=== PATIENT | female | born 1965 | race Caucasian/White ===

== ENCOUNTER 2017-07-22 06:19 | Inpatient (IN) | payer MEDICAID ==
[2017-07-22] VITALS (18 sets, daily range): BP systolic 89–142; BP diastolic 8–85
[~2017-07-22] VITALS: Ht 152.4 cm; Wt 84.6 kg
[~2017-07-22 06:19] MED LIST: BISOPROLOL HCTZ PO; BISOPROLOL/HCTZ1 TA2 PO; CELEBREX 100MG100 MG PO; CITALOPRAM20 MG PO; DARVOCET-N 1001 EACH PO; DICLOFENAC 50MG50 MG PO; DULOXETINE30 M1 PO; FETZIMA80 MG PO; FLEXERIL10 MG PO; IBU-8800 MG PO; IBUPROFEN800 MG PO; LEVOTHYROXIN0.075 M1 PO; LORTAB 5/500 501 TAB PO; LORTAB 500 MG-71 TAB PO; MEDROL 4MG. DOSE4 MG PO; NEURONTIN 300M300 MG PO; OMEPRAZOLE40 MG PO; PEPCID 20MG TAB20 MG PO; PREDNISONE 20MG20 MG PO; PRILOSEC40 MG PO; SYNTHROID0.025 MG PO; VICODIN 5/500 T1 TAB PO; VITAMIN D1000 IU PO; ZANAFLEX4 MG PO; [UNRECOGNIZED DRUG - OTHER] PO
[2017-07-22 07:33] LABS: BUN 26 mg/dL (7-18); GFR (ESTIMATED) 66 ML/MIN (59-)
--- NOTE | 2017-07-22 09:59 | Operative Note ---
Procedure/Operative Record Date of Procedure: 07/22/17 Referring physician: Dr. Mallory Pre-op diagnosis: 1. Pelvic pain. 2. Leiomyomata uteri. Post-op diagnosis: 1. Pelvic pain. 2. Leiomyomata uteri. Procedure performed: Total abdominal hysterectomy, bilateral salpingo-oophorectomy. Surgeon: Paco Haddad Visual Manager(s): RADHA Cruz Anesthesia: Gen., FERNANDO Simons and FERNANDO Armstrong Indications: 1. Pelvic pain. 2. Leiomyomata uteri. Description of procedure: After the patient was prepped and draped in the usual fashion, general anesthesia was administered, albeit with considerable difficulty. A low Pfannenstiel incision was made across the midline, and the fat and fascia were in the usual fashion, bleeders being clamped and coagulated along the way. The peritoneum was entered with a knife, and extended above and below with Metzenbaum scissors. The bowel was packed away, and a self-retaining Laurent retractor with bladder blade was placed. The uterus was of normal size and configuration. Each tube showed evidence of previous ligation. The LEFT ovary was atrophic. The RIGHT ovary was partially atrophic, but also cystic. The round ligament on either side was Jim clamped, cut, and Jim suture with #1 Vicryl. The bladder peritoneum was then sharply and bluntly dissected free. The infundibulopelvic ligaments on either side were Jim clamped, cut, and Jim suture with #1 Vicryl, thus including the adnexa within the uterine specimen. The uterine vessels, the cardinal and uterosacral ligaments were individually, bilaterally, Jim clamped, cut, and Jim suture with #1 Vicryl. The vaginal vault was then crossclamped with 2 Tonya clamps, and the uterine specimen and cervix (including both adnexa and) was excised with Landaverde scissors. The vaginal cuff was closed with a running locked suture of #1 Vicryl. There was no undue bleeding. Gelfoam was placed against the back of the vaginal cuff for further hemostasis. The peritoneum was then grasped with 3 Tonya clamps, and closed with a running semi-locked suture of 0 Vicryl. The muscle was approximated with a running unlocked suture of 0 Vicryl. The fascia was closed with a running locked suture of #1 Vicryl. The subcutaneous fat and Cady's fascia were closed with a running unlocked suture of 2-0 Vicryl. The skin was closed with a subcuticular suture of 3-0 Vicryl, and appropriately dressed. The sponge and needle counts correct. The urine was clear in the Snow catheter. The estimated blood loss was 300 mL. The patient tolerated the procedure well, and was taken to PACU in good condition. Because of her difficult intubation, the decision has been made to observe her in Intensive Care Unit overnight. EBL (ml): 300 Complications: None. Specimens: Uterus and both adnexa. at 0948
--- NOTE | 2017-07-22 10:42 | Anesthesia Record ---
Anesthesia Record Part I Total IV fluids: 1300 EBL (ml): 300 Urine Output: 0 Units of blood given: 0 B/P: 119/77 % SaO2: 97 Pulse: 71 Resps: 10 Temp: 97.7 Patient is: Drowsy, Mask O2, Stable Stable to PACU at: 1020 at 1041
--- NOTE | 2017-07-22 10:44 | Anesthesia Record ---
Anesthesia Record Part II Discharge time: 1050 Destination: ICU PACU nurse assessment review? Yes Patient is: Drowsy, Mask O2, Stable Anesthesia complications? Yes (DIFFICULT INTUBATION) at 1041
--- NOTE | 2017-07-22 12:54 | ACUTE CARE PROGRESS NOTE (QUA) ---
Progress Notes Subjective Date 07/22/17 Time 1200 Note Internal Medicine Consult 52-year-old female with a history of hypertension, hypothyroidism, and GERD was evaluated in the ICU where she was transferred s/p total abdominal hysterectomy with bilateral salpingo-oophorectomy d/t a difficult intubation for airway monitoring and observation. Patient elected for hysterectomy due to fibroids and pelvic pain. Pre-operative labs and CXR were reviewed and unremarkable. It took anesthesia multiple attempts to place endotracheal tube prior to surgery. This is likely related to her body/neck shape and size. She was extubated and sent to ICU for monitoring. Patient awakens easily. She complains of throat pain. She denies any difficulty breathing or swallowing. No shortness of breath, cough or wheezing. Speech is clear. Alert and oriented x3, drowsy awakens easily. Rate and rhythm regular. No LE edema. Pulses 2+. Lung sounds clear and equal throughout. Airway patent with minimal swelling noted around uvula, tongue without edema. Approx 2 cm laceration noted on right side of uvula. Scant old blood noted on teeth, no active bleeding. Patient/family reports: pain (throat) Nursing reports: no complaints Objective Findings Last VS-Temp:97.5 B/P:145/97 Pulse:89 Resp:15 SaO2:95 OXYGEN Last weight lbs:182 oz:0 K.555 Method:Floor Scales Reviewed: medications, vital signs, lab results, radiology report, consult note Assessment/Plan Problem List 1. Difficult intubation Assessment/Plan: Minimal airway swelling noted. Decadron every 8 hours for edema and inflammation. Monitor airway closely and notify Anesthesia PRN. 2. Laceration of oral cavity Assessment/Plan: Magic mouthwash QID. Ancef will cover for infection prophylaxis. 3. History of hysterectomy Assessment/Plan: See operative report. Post operative care per Dr. Haddad. 4. Hypertension Assessment/Plan: Stable, will monitor and restart meds if indicated. 5. Hypothyroidism Assessment/Plan: Stable, last TSH was normal. 6. GERD (gastroesophageal reflux disease) Assessment/Plan: Protonix IV for ulcer prevention. Patient condition Stable Plan: See above This inpt stay is expected to cross 2 MNs from start of care No at [id number]
[2017-07-22 13:29] LABS: URINE BILIRUBIN - DIPSTICK NEGATIVE (NEG); URINE BLOOD NEGATIVE (NEG)
[2017-07-22] MEDS ORDERED: ZYRTEC ALLERGY10 MG PO (14:37)
--- NOTE | 2017-07-22 14:55 | ACUTE CARE PROGRESS NOTE (QUA) ---
Progress Notes Subjective Date 07/22/17 Time 1300 Assessment/Plan Problem List 1. Difficult intubation 2. Laceration of oral cavity 3. History of hysterectomy 4. Hypertension 5. Hypothyroidism 6. GERD (gastroesophageal reflux disease) This inpt stay is expected to cross 2 MNs from start of care Yes (major surgery) Comments: This is day of surgery. The patient has been housed in Intensive Care Unit as an overflow to the stepdown unit because of difficult intubation and concern with regard to laryngeal edema. She was easily extubated in PACU. She is alert and breathing well. Her oxygen saturation is in the high 90s. Surgery is been explained to the patient, along with the difficulties encountered with her intubation. Dr. Mallory has been consulted encased there is need for further medical follow-up. Impression: Stable. at [id number]
[2017-07-22] MEDS ORDERED: LYRICA 100 MG100 MG PO (15:56)
[2017-07-23] VITALS (9 sets, daily range): BP systolic 105–135; BP diastolic 58–78
--- NOTE | 2017-07-23 07:31 | ACUTE CARE PROGRESS NOTE (QUA) ---
Progress Notes Subjective Date 07/23/17 Time 0729 Note This is postop day number 1. The patient is afebrile. Her vital signs are stable. Wound clean. Abdomen soft. Urine output good.She has had no breathing problems since her difficult intubation, and her extubation was uneventful. Her hemoglobin is 13.0 g. Plan is to advance her diet and discontinue her Snow. She will be moved to a regular bed today. Assessment/Plan Problem List 1. Difficult intubation 2. Laceration of oral cavity 3. History of hysterectomy 4. Hypertension 5. Hypothyroidism 6. GERD (gastroesophageal reflux disease) This inpt stay is expected to cross 2 MNs from start of care Yes (major surgery) at 0731
--- NOTE | 2017-07-23 09:07 | ACUTE CARE PROGRESS NOTE (QUA) ---
Progress Notes Subjective Date 07/23/17 Time 0905 Note Internal medicine consult followup note: Patient did well overnight in the step down unit. As tolerated and the buttocks well. Continues to complain of a lot of oral pain, understandably. Laceration on posterior pharynx and tongue is healing. No evidence of drainage. No stridor on inspiration. No wheezing, good air movement. Swallows liquids tenderly but well. Objective Findings Last VS-Temp:98 B/P:125/72 Pulse:69 Resp:12 SaO2:95 OXYGEN Last weight lbs:186 oz:7 K.567 Method:Bed Scales Assessment/Plan Problem List 1. Difficult intubation 2. Laceration of oral cavity 3. History of hysterectomy 4. Hypertension 5. Hypothyroidism 6. GERD (gastroesophageal reflux disease) Patient condition Improving Plan: continue current care, okay to transfer to lower level of care for observation. Continue IV antibiotics for oral laceration This inpt stay is expected to cross 2 MNs from start of care Yes (major surgery) at 0906
[2017-07-23] MEDS ORDERED: GABAPENTIN 600600 MG PO (14:55)
[2017-07-24 03:39] VITALS: BP 148/82
--- NOTE | 2017-07-24 06:15 | ACUTE CARE PROGRESS NOTE (QUA) ---
Progress Notes Subjective Date 07/24/17 Time 0613 Note This is postop day number 2. The patient is afebrile. Her vital signs are stable. Wound is clean. She is ambulating. Her abdomen is distended with a likely postop ileus. Plan is to ambulate and treat with Dulcolax suppository and simethicone. Assessment/Plan Problem List 1. Difficult intubation 2. Laceration of oral cavity 3. History of hysterectomy 4. Hypertension 5. Hypothyroidism 6. GERD (gastroesophageal reflux disease) This inpt stay is expected to cross 2 MNs from start of care Yes (major surgery) at 0614
[2017-07-24 07:40] VITALS: BP 133/76
--- NOTE | 2017-07-24 08:41 | ACUTE CARE PROGRESS NOTE (QUA) ---
Progress Notes Subjective Date 07/24/17 Time 0745 Note Internal Medicine Consult Follow-up Patient has done well overnight. She is ambulating to the bathroom and has showered. She had moderate sized, soft bowel movement this morning. She continues to have significant oral/throat pain. No wheezing or shortness of breath. Able to swallow with some discomfort. Alert and oriented x3. Rate and rhythm regular. No murmur. No edema. Pulses 2+. LS clear and equal. Abdomen soft, and mild tender near incision which is well approximated, dry without drainage or s/s infection. Bowel sounds normoactive. Oral laceration approx 2 cm on right side of uvula with ecchymosis extending 2-3 cm around incision, no drainage or s/s infection. Patient/family reports: feeling worse Nursing reports: no complaints Objective Findings Last VS-Temp:97.9 B/P:133/76 Pulse:79 Resp:18 SaO2:97 ROOM AIR Last weight lbs:186 oz:7 K.567 Method:Bed Scales Reviewed: medications, vital signs, lab results Assessment/Plan Problem List 1. Difficult intubation 2. Laceration of oral cavity 3. History of hysterectomy 4. Hypertension 5. Hypothyroidism 6. GERD (gastroesophageal reflux disease) Patient condition Improving Plan: continue current care This inpt stay is expected to cross 2 MNs from start of care Yes (major surgery) Comments: IV antibiotics were discontinued yesterday. Start Cefdinir 300mg po BID. Patient will need to continue Cefidinir 300 MG PO BID x 7 days after discharge. at 0844
--- NOTE | 2017-07-24 15:14 | ACUTE CARE PROGRESS NOTE (QUA) ---
Progress Notes Subjective Date 07/24/17 Time 1513 Note The patient is afebrile. Vital signs stable. Wound clean. Abdomen soft. She had excellent results from her Dulcolax suppository and I'm going to start her on a soft diet at this time. Assessment/Plan Problem List 1. Difficult intubation 2. Laceration of oral cavity 3. History of hysterectomy 4. Hypertension 5. Hypothyroidism 6. GERD (gastroesophageal reflux disease) This inpt stay is expected to cross 2 MNs from start of care Yes (major surgery) at 1511
[2017-07-24 16:31] VITALS: BP 128/79
[2017-07-24 21:06] VITALS: BP 144/86
[2017-07-24 21:16] VITALS: BP 144/86
[2017-07-25 04:00] VITALS: BP 126/64
--- NOTE | 2017-07-25 06:16 | ACUTE CARE PROGRESS NOTE (QUA) ---
Progress Notes Subjective Date 07/25/17 Time 0614 Note This is postop day number 3. The patient is afebrile. Vital signs stable. Wound clean. Abdomen soft. She is eating and ambulating and has had a bowel movement. She will be discharged today. Assessment/Plan Problem List 1. Difficult intubation 2. Laceration of oral cavity 3. History of hysterectomy 4. Hypertension 5. Hypothyroidism 6. GERD (gastroesophageal reflux disease) This inpt stay is expected to cross 2 MNs from start of care Yes (major surgery) at 0615
--- NOTE | 2017-07-25 06:19 | DISCHARGE SUMMARY STANDARD ---
Discharge Summary Date of admission: 07/22/17 Date of discharge: 07/25/17 Patient condition: Stable Discharge diagnosis (es): 1. Pelvic pain. 2. Leiomyomata uteri. Hospital course: This 52-year-old white female was admitted for definitive treatment of the above diagnoses. On the date of admission, she was taken to the operating room, where she underwent a total abdominal hysterectomy and bilateral salpingo-oophorectomy , without surgical complications. She did, however, experience a difficult intubation (per anesthesia). As a result, she was observed in the Intensive Care Unit for 24 hours postoperatively after extubation, but had no difficulties in that regard. She received Delestrogen 30 mg IM in PACU. Postoperatively, the patient has done well. She is eating and ambulating, and has had a bowel movement. Her wound is clean. Her abdomen is soft. Her hemoglobin on admission was 14.4 g; postoperatively it is 13.0 g. She is not a smoker. She is discharged home on the third postoperative day on Percocet 7.5/325 (number 30), 1 by mouth every 6 hours when necessary pain. She is given appropriate instructions as to diet, exercise, and wound care, and she is to return the office in 2 weeks for follow-up. at 8943
[2017-07-25] MEDS ORDERED: ENDOCET 325 MG-1 TA2 PO (06:22)
[2017-07-25 08:26] VITALS: BP 124/71
[2017-07-25 08:30] VITALS: BP 124/71
[2017-07-25] MEDS ORDERED: CEFDINIR300 M1 PO (08:46)
--- NOTE | 2017-07-25 08:58 | ACUTE CARE PROGRESS NOTE (QUA) ---
Progress Notes Subjective Date 07/25/17 Time 0857 Note Patient doing better, able to swallow soft foods. No vomiting. No significant pain. Oral exam improved. Agree with discharge on antibiotics. Objective Findings Last VS-Temp:97.6 B/P:124/71 Pulse:62 Resp:18 SaO2:97 ROOM AIR Last weight lbs:186 oz:7 K.567 Method:Bed Scales Assessment/Plan Problem List 1. Difficult intubation 2. Laceration of oral cavity 3. History of hysterectomy 4. Hypertension 5. Hypothyroidism 6. GERD (gastroesophageal reflux disease) This inpt stay is expected to cross 2 MNs from start of care Yes (major surgery) at 0858
== END 2017-07-25 10:30 | disposition home or self-care (01) | DRG 743 ==
LOC: 2ND 06:19 → EDSTATUS 07:30 → SDC 07:30 → 2ND 07:30 → ICU 08:38 → OB 08:38 → ICU 10:34 → OB 07-23 09:27
PROVIDERS: Obstetrics & Gynecology
PROC: 0UT70ZZ Resection of Bilateral Fallopian Tubes, Open Approach (ICD-10-PCS; principal; 2017-07-22 07:30)
PROC: 0UT20ZZ Resection of Bilateral Ovaries, Open Approach (ICD-10-PCS; principal; 2017-07-22 07:30)
PROC: 0UT90ZZ Resection of Uterus, Open Approach (ICD-10-PCS; principal; 2017-07-22 07:30)
PROC: 0UTC0ZZ Resection of Cervix, Open Approach (ICD-10-PCS; principal; 2017-07-22 07:30)
DX: D25.9 Leiomyoma of uterus, unspecified (principal); I10 Essential (primary) hypertension; T88.4XXA Failed or difficult intubation, initial encounter; Y65.8 Other specified misadventures during surgical and medical care
CPT/HCPCS: J0131; J0330; J2405

== ENCOUNTER 2017-10-18 21:06 | Emergency (ER) | payer MEDICAID ==
[~2017-10-18] VITALS: Ht 152.4 cm; Wt 81.6 kg
[~2017-10-18 21:06] MED LIST changes: +CEFDINIR300 M1 PO; +ENDOCET 325 MG-1 TA2 PO; +GABAPENTIN 600600 MG PO; +LYRICA 100 MG100 MG PO; +ZYRTEC ALLERGY10 MG PO
[2017-10-18] MEDS ORDERED: METHOCARBAMOL500 M1 PO (21:18)
[2017-10-18] MEDS ORDERED: PENICILLIN VK250 MG PO (21:19)
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
--- OUTSIDE RECORDS SUMMARY | 2017-10-18 21:26 | External Medical Summary Rpt | CCD ---
Author Author , [facility] Organization [facility] Address Unknown Phone [email or web address] Care Team Providers Care Supervisor Engine Repair Name Role Phone KRYSTINA JUSTICE MD, PSC, Unavailable Unavailable KRYSTINA JUSTICE MD, PSC [facility] Unavailable Unavailable PRACTICE L, [facility] Unavailable SERV[facility], [facility] & Unavailable Unavailable D[facility]ILIER, [facility] Unavailable Unavailable [facility], [facility] NATALIYA SEKOU, NATALIYA SEKOU Unavailable Unavailable NÚÑEZ, NÚÑEZ Unavailable Unavailable [facility] Unavailable Unavailable INC, [facility], [facility] Unavailable Unavailable [facility]PITAL P, [facility], Unavailable Unavailable [facility] Un[facility], [facility] [place] Unavailable Unavailable [facility] MED, [facility] Un[facility], Unavailable Unavailable PLL, [facility], [facility] Purpose Continuity of Care Document - 06-23-2014 through 2016 Problems Code Diagnosis DOS Provider Status J0100 ACUTE 08-15-2017 [facility] [place] SINUSITIS INTERNAL UNSPECIFIED MED M797 FIBROMYALGI 08-01-2017 [facility] INTERNAL MED Z23 ENCOUNTER 08-01-2017 [facility] FOR [facility] IMMUNIZATIO INTERNAL N MED D259 LEIOMYOMA 07-22-2017 [facility] UTERUS PHYSICIANS UNSPECIFIED GROUP N8301 FOLLICULAR 07-22-2017 [facility] YANG & RIGHT OVARY DUBILIER N8302 FOLLICULAR 07-22-2017 [facility] CYST OF YANG & LEFT OVARY DUBILIER N8311 CORPUS 07-22-2017 [facility] LUTEUM CYST YANG & OF RIGHT DUBILIER OVARY N838 OTH 07-22-2017 [facility] NONINFLAMM YANG & D/O OVARY DUBILIER FALLOP TUBE & BROAD LIG R102 PELVIC AND 07-22-2017 [facility] PERINEAL PHYSICIANS PAIN GROUP I10 ESSENTIAL 07-17-2017 [facility]YPERTENSIO [facility] ASS N C15675 ENCOUNTER 07-17-2017 [facility] P AL CARIOVASCUL AR EXAM C57607 ENCOUNTER 07-17-2017 [facility] P AL RESPIRATORY EXAM E30847 ENCOUNTER 07-17-2017 [facility] FOR OTHER MEDICAL PREPROCEDUR IMAGING ASS AL EXAMINATION M461 SACROILIITI 05-20-2017 Alin KNOTT MD, PSC ELSEWHERE CLASSIFIED M7062 TROCHANTERI 05-20-2017 Jodie KNOTT BURSITIS , PSC LEFT HIP N939 ABNORMAL 03-18-2017 [facility] VAGINAL [facility] BLEEDING UNSPECIFIED N950 POSTMENOPAU 03-18-2017 [facility] DONELL PHYSICIANS BLEEDING GROUP B38557 ENCOUNTER 03-14-2017 [facility] P AL LABORATORY EXAM J302 OTHER 02-18-2017 [facility] ALLERGIC INTERNAL RHINITIS MED P68444 UNSPECIFIED 02-18-2017 [facility] OVARIAN PHYSICIANS CYST RIGHT GROUP SIDE N938 OTHER SPEC 02-13-2017 [facility] ABNORMAL [facility]ICAL UTERINE & IMAGING ASS VAGINAL BLEEDING Z1231 ENCOUNTER 02-13-2017 [facility] SCREENING [facility] MAMMO MALIG IMAGING ASS NEOPLASM BREAST N951 MENOPAUSAL 02-04-2017 [facility] AND FEMALE PHYSICIANS CLIMACTERIC GROUP STATES A10503 ATYP SQ 02-04-2017 [facility] CELLS UNDET PHYSICIANS GROUP SIGNIFICANC E CYTOL SMER CERV H67815 ENCOUNTER 02-04-2017 [facility] REGISTERED DIETETIC TECHNICIAN EXAM PHYSICIANS GENERAL RTN GROUP W/ABNORMAL FIND Z1212 ENCOUNTER 02-04-2017 [facility] SCREENING PHYSICIANS MALIGNANT GROUP NEOPLASM RECTUM E039 HYPOTHYROID 12-16-2016 [facility]M [facility] UNSPECIFIED INTERNAL MED R002 PALPITATION 12-16-2016 [facility] S [facility] INTERNAL MED 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 R198 OTH SPEC SX 12-03-2016 [facility] & SIGNS PHYSICIANS INVLV THE GROUP DIGESTV SYS & ABD Z1211 ENCOUNTER 12-03-2016 [facility] SCREENING PHYSICIANS MALIGNANT GROUP NEOPLASM OF COLON H6692 OTITIS 11-09-2016 [facility] MEDIA PHYSICIANS UNSPECIFIED GROUP LEFT EAR J029 ACUTE 11-09-2016 [facility] PHARYNGITIS PHYSICIANS GROUP UNSPECIFIED J320 CHRONIC 11-09-2016 [facility] MAXILLARY PHYSICIANS SINUSITIS GROUP D126 BENIGN 10-31-2016 [facility] NE[facility] OF [facility] COLON UNSPECIFIED K635 POLYP OF 10-31-2016 [facility] COLON PHYSICIANS GROUP K644 RESIDUAL 10-31-2016 [facility] HEMORRHOIDA PHYSICIANS L SKIN TAGS GROUP K5900 CONSTIPATIO 08-27-2016 [facility] N PHYSICIANS UNSPECIFIED GROUP R1032 LEFT LOWER 08-27-2016 [facility] QUADRANT PHYSICIANS PAIN GROUP R109 UNSPECIFIED 08-24-2016 [facility]OMINAL [facility] PAIN INTERNAL MED R739 HYPERGLYCEM 08-24-2016 [facility] [place] [facility] UNSPECIFIED INTERNAL MED I00566 PRIMARY 08-23-2016 [facility] OSTEOARTHRI [facility]ICAL TIS RIGHT IMAGING ASS SHOULDER F44700 PAIN IN 08-23-2016 [facility] RIGHT MEDICAL SHOULDER IMAGING ASS Q54427 PAIN IN 08-23-2016 [facility] LEFT MEDICAL SHOULDER IMAGING ASS E669 OBESITY 08-09-2016 [facility]NSPECIFIED [facility] INC E785 HYPERLIPIDE 08-09-2016 [facility] UNSPECIFIED INC Z0000 ENCOUNTER 08-09-2016 [facility] GEN ADULT [facility] MED EXAM INC W/O ABNORMAL FIND K219 GASTRO-ESOP 07-24-2016 [facility] H REFLUX [facility] DISEASE INTERNAL WITHOUT MED ESOPHAGITIS 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 WITHOUT MED DIARRHEA M129 ARTHROPATHY 07-24-2016 [facility] UNSPECIFIED INTERNAL MED I55315 DISEASES 07-24-2016 [facility] DIGESTIVE [facility] SYSTEM COMP INTERNAL MED 2ND TRI 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 [facility] D/O INC W/RADICULOP ATHY LUMB RGN M5126 OTH 06-24-2016 JOSE KNOTT MD, PSC RAL DISC DISPLACEMEN T LUMBAR RGN G8929 OTHER 06-05-2016 [facility] CHRONIC [facility] PAIN INTERNAL MED K529 NONINFECTIV 06-05-2016 [facility] GASTROENTER INTERNAL ITIS & MED COLITIS UNS X48047 SPONDYLOSIS 05-21-2016 [facility] W/O MEDICAL MYELOPATH/R IMAGING ASS ADICULOPATH Y LUMB RGN M4806 SPINAL 05-21-2016 [facility] STENOSIS MEDICAL LUMBAR IMAGING ASS REGION M545 LOW BACK 05-21-2016 [place] [facility] M549 DORSALGIA 05-17-2016 [facility] UNSPECIFIED [facility]ANCE SERVICE I33843 MUSCLE 05-17-2016 [facility] SP[facility] OF [facility]OS[facility] BACK INC U52925 OTHER 05-17-2016 [facility] MUSCLE [facility]ANS, [facility] PLL[facility] B9689 OT SPEC 05-02-2016 [facility]ACTERIAL [place] AGNT CAUSE INTERNAL DZ MED CLASSIFIED ELSW N760 ACUTE 05-02-2016 [facility] VAG[facility] N898 OTHER 05-02-2016 [facility] SPECIFIED [facility] NONINFLAMMA TORY DISORDERS VAGINA N921 EXCESS & 05-02-2016 [facility] [place]REQUENT [place] MENSTRUATIO INTERNAL N MED W/IRREGULAR CYCLE N941 DYSPAREUNIA 05-02-2016 [facility] [place] INTERNAL MED A44020 ENCOUNTER 05-02-2016 [facility] REGISTERED DIETETIC TECHNICIAN EXAM [place] GENERAL RTN INTERNAL W/O MED ABNORMAL FIND J020 STREPTOCOCC 03-31-2016 [facility] AL PHYSICIANS PHARYNGITIS GROUP M7061 TROCHANTERI 03-15-2016 Jodie KNOTT BURSITIS , PSC RIGHT HIP M791 MYALGIA 02-26-2016 KRYSTINA JUSTICE MD, PSC M4724 OT 02-17-2016 NÚÑE[facility] SPONDYLOSIS W/RADICULOP ATHY THORACIC REGION D19517 SPONDYLOSIS 02-17-2016 NÚÑEZ W/O MYELOPATH/R ADICULOPATH SAC & SC M9901 SEGMENTAL & 02-17-2016 NÚÑ[facility] SOMATIC DYSFUNCTION CERVICAL REGION M9902 SEGMENTAL & 02-17-2016 NÚ[facility] SOMATIC DYSFUNCTION THORACIC REGION M9903 SEGMENTAL & 02-17-2016 NÚ[facility] SOMATIC DYSFUNCTION OF LUMBAR REGION M9904 SEGMENTAL & 02-17-2016 NÚ[facility] SOMATIC DYSFUNCTION OF SACRAL REGION G4730 SLEEP APNEA 02-07-2016 [facility] UNSPECIFIED PRACTICE L H903 SENSORINEUR 02-07-2016 [facility] AL HEARING PHYSICIAN LOSS PRACTICE L BILATERAL H9313 TINNITUS 02-07-2016 [facility] BILATERAL PHYSICIAN PRACTICE L J069 ACUTE UPPER 02-07-2016 [facility] [place] RESPIRATORY INTERNAL INFECTION MED UNSPECIFIED M2662 ARTHRALGIA 02-07-2016 [facility] OF PHYSICIAN TEMPOROMAND PRACTICE L IBULAR JOINT R0683 SNORING 02-07-2016 [facility] PH[facility]ICIAN PRACTICE L A79520 PAIN IN 01-19-2016 [facility] RIGHT HIP MEDICAL IMAGING ASS X95628 PAIN IN 01-19-2016 [place] LEFT HIP MEDICAL IMAGING ASS 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 01-19-2016 [facility] VERTEBRAE [facility]ICAL IMAGING ASS M5135 OTH 01-19-2016 [place] 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 J0190 ACUTE 12-30-2015 [facility] SINUSITIS PHYSICIANS UNSPECIFIED GROUP R05 COUGH 12-30-2015 [facility] PHYSICIANS GROUP I44768 OTHER 10-24-2015 [facility] INFECTIVE [facility] OTITIS [facility] UNSPECIFIED EAR Z5329 PROC & [place] 10-24-2015 [facility] NOT CARRIED [facility] OUT INC PATIENTS OT REASON H26389 ACUTE & 10-09-2015 [place] SUBACUTE [facility] ALLERGIC [facility] OTITS MEDIA RIGHT EAR 7265 ENTHESOPATH 08-16-2015 [facility] Y OF HIP PHYSICIANS REGION GROUP 41174 NAUSEA 06-29-2015 [facility] ALONE PHYSICIANS GROUP 7873 FLATULENCE 06-29-2015 [facility] ERUCTATION PHYSICIANS AND GAS GROUP PAIN 36000 ABDOMINAL 06-29-2015 [facility] PAIN, PHYSICIANS EPIGASTRIC GROUP 7871 HEARTBURN 06-13-2015 [facility] PHYSICIANS GROUP 2449 UNSPECIFIED 06-12-2015 [facility] HYPOTHYROID INTERNAL ISM MED 4019 UNSPECIFIED 06-12-2015 [facility] ESSENTIAL [facility] HYPERTENSIO INTERNAL N MED 13024 ESOPHAGEAL 06-12-2015 [facility] REFLUX [facility] INTERNAL MED 7248 OTHER 06-12-2015 [facility] SYMPTOMS [facility] REFERABLE INTERNAL TO BACK MED 7336 TIETZES 05-25-2015 [facility] DISEASE PHYSICIANS, [facility] 26474 CHEST PAIN 05-25-2015 [facility] UNSPECIFIED MEDICAL IMAGING ASS 490 BRONCHITIS 05-08-2015 [facility] NOT [facility] SPECIFIED INTERNAL ACUTE OR MED CHRONIC 7862 COUGH 05-08-2015 [facility] INTERNAL MED 46831 SPASM OF 03-16-2015 [facility] MUSCLE AMBULANCE SERVICE 7804 DIZZINESS 03-16-2015 [place] [facility] Privatext [facility] 18509 SHORTNESS 03-16-2015 [facility] OF BREATH AMBULANCE SERVICE 98771 OTHER CHEST 03-16-2015 [facility] PAIN [place] INTERNAL MED 4139 OTHER AND 01-30-2015 [place] UNSPECIFIED [facility] [place] 03709 PAIN IN 01-30-2015 [place] JOINT, MEDICAL SHOULDER IMAGING ASS REGION 76469 PAIN IN 01-30-2015 [place] JOINT MEDICAL PELVIC IMAGING ASS REGION AND THIGH 7231 CERVICALGIA 01-30-2015 [facility] 31251 CONTUSION 01-30-2015 [facility] OF SHOULDER [facility] P 51773 CONTUSION 01-30-2015 [facility] OF HIP [facility] P 9592 INJURY 01-30-2015 [facility] OTHER&UNSPE MEDICAL CIFIED IMAGING ASS SHOULDER&UP PER ARM 3899 UNSPECIFIED 01-04-2015 [place] HEARING PHYSICIAN LOSS PRACTICE L 85875 UNSPECIFIED 12-13-2014 [place] TINNITUS PHYSICIAN PRACTICE L 4739 UNSPECIFIED 12-13-2014 [place] SINUSITIS PHYSICIAN PRACTICE L 84131 UNSPECIFIED 12-13-2014 [place] SLEEP PHYSICIAN APNEA PRACTICE L 89013 OTHER 12-13-2014 [place] DYSPNEA AND PHYSICIAN PRACTICE L RESPIRATORY ABNORMALITI ES V7612 OTHER 12-06-2014 [place] SCREENING MEDICAL MAMMOGRAM IMAGING ASS 3814 NONSUPPRATV 11-28-2014 [facility] OTITIS [facility] MEDIA NOT INTERNAL SPEC MED ACUT/CHRON 02065 ACUTE 11-07-2014 [facility] SEROUS [facility] OTITIS INTERNAL MEDIA MED 12513 UNSPECIFIED 08-30-2014 [facility] VIRAL [facility] INFECTION INTERNAL IN CCE & MED UNS SITE 01214 UNSPECIFIED 08-12-2014 [facility] ARTHROPATHY INTERNAL MULTIPLE MED SITES 7291 UNSPECIFIED 08-12-2014 [facility] MYALGIA [facility] AND INTERNAL MYOSITIS MED 89927 OTHER 08-12-2014 [facility] MALAISE AND [facility] FATIGUE INTERNAL MED 93722 MEMORY LOSS 08-12-2014 [facility] INTERNAL MED 460 ACUTE 08-01-2014 [facility] NASOPHARYNG [facility] ITIS INTERNAL MED 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-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 4720 CHRONIC 07-02-2014 [facility] RHINITIS [facility] INTERNAL MED 2392 NEOPLASMS 06-23-2014 NATALIYA SEKOU UNSPEC NATURE BONE SOFT TISSUE&SKIN M62.830 MUSCLE [facility] OF BACK 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 25 #3 93 MG 8 TA B LY 00 10 11 60 30 00 RI Ac RI 07 -0 -0 .0 00 TE ti CA 11 8- 3- 00 01 ve 01 20 20 20 AI 10 56 17 17 30 D 0 8 59 PH MG AR MA CA CY PS UL #3 E 93 8 OM 00 10 11 30 30 00 RI Ac EP 78 -0 -0 .0 00 TE ti RA 12 8- 3- 00 01 ve ZO 23 20 20 20 AI LE 40 17 17 30 D [address] AR MA 40 CY MG #3 93 CA 8 PS UL E CE 16 10 11 30 30 00 RI Ac TI 71 -0 -0 .0 00 TE ti RI 40 8- 3- 00 01 ve ZI 27 20 20 20 AI NE 10 17 17 30 D 2 61 PH HC AR L MA 10 CY MG #3 93 TA 8 BL ET CE 00 10 11 30 30 00 RI Ac LE 37 -0 -0 .0 00 TE ti CO 87 8- 3- 00 01 ve XI 15 20 20 20 AI B 00 17 17 30 D 20 1 62 PH 0 AR MG MA CY CA PS #3 UL 93 E 8 ES 00 09 10 30 30 00 RI Ac TR 55 -2 -2 .0 00 TE ti AD 50 2- 0- 00 01 ve IO 88 20 20 20 AI L 60 17 17 08 D 1 2 58 PH MG AR MA TA CY BL ET #3 93 8 AM 00 09 10 20 10 00 WA Ac OX 78 -2 -2 .0 00 L- ti -C 11 2- 0- 00 07 MA ve LA 85 20 20 51 RT V 22 17 17 14 87 0 16 PH 5- AR 12 MA 5 CY MG #5 TA 91 BL ET DU 57 09 10 30 30 00 WA Ac LO 23 -1 -1 .0 00 L- ti XE 70 7- 3- 00 07 MA ve TI 01 20 20 50 RT NE 93 17 17 60 0 38 PH HC AR L MA DR CY 60 #5 91 MG CA P CE 00 09 10 30 30 00 WA Ac LE 59 -1 -1 .0 00 L- ti CO 13 5- 3- 00 07 MA ve XI 98 20 20 50 RT B 40 17 17 99 20 1 12 PH 0 AR MG MA CY CA PS #5 UL 91 E LE 00 09 10 30 30 00 WA Ac VO 78 -1 -1 .0 00 L- ti TH 15 5- 3- 00 07 MA ve YR 18 20 20 50 RT OX 49 17 17 98 IN 2 90 PH E AR 10 MA 0 CY MC G #5 TA 91 BL ET CE 16 09 10 30 30 00 MN Ac TI 57 -1 -1 .0 00 L- ti RI 10 5- 3- 00 08 MA ve ZI 40 20 20 84 RT NE 25 17 17 05 0 02 PH HC AR L MA 10 CY MG #5 91 TA BL ET OM 60 09 10 30 30 00 MN Ac EP 50 -1 -1 .0 00 L- ti RA 50 5- 3- 00 07 MA ve ZO 14 20 20 50 RT LE 60 17 [address] AR MA 40 CY MG #5 91 CA PS UL E AC 00 09 10 28 7 00 MN Ac YC 09 -1 -1 .0 00 L- ti LO 38 9- 3- 00 07 MA ve 94 20 20 51 RT R 70 17 17 05 80 1 64 PH 0 AR MG MA CY TA BL #5 ET 91 HY 00 09 10 [address] 40 -1 -1 .0 00 L- ti OC 60 4- 3- 00 02 MA ve OD 12 20 20 24 RT ON 30 17 17 19 -A 1 04 PH CE AR TA MA IL CY NO PH #5 EN 91 5- 32 5 AL 00 09 10 1. 1 00 MN Ac IN 22 -1 -0 00 00 L- ti AZ 82 3- 6- 0 04 MA ve OL 03 20 20 53 RT AM 15 17 17 21 1 0 00 PH AR MG MA CY TA BL #5 ET 91 BI 29 09 10 30 30 00 RI Ac SO 30 -0 -0 .0 00 TE ti IN 00 9- 6- 00 01 ve OL 18 20 20 19 AI OL 80 17 17 89 D -H [address] AR Z MA 5- CY 6. 25 #3 93 MG 8 TA B CE 68 09 09 14 7 00 MN Ac FD 18 -0 -2 .0 00 L- ti IN 00 1- 9- 00 07 MA ve IR 71 20 20 50 RT 16 17 17 71 30 0 85 PH 0 AR MG MA CY CA PS #5 UL 91 E OX 00 09 09 30 8 00 [facility] YC 40 -0 -2 .0 00 L- ti OD 60 1- 9- 00 02 MA ve ON 52 20 20 24 RT -A 20 17 17 17 CE 1 49 PH TA AR IL MA NO CY PH EN #5 91 7. 5- 32 5 LY 00 08 09 60 30 00 [facility] RI 07 -2 -2 .0 00 L- ti CA 11 8- 2- 00 04 MA ve 01 20 20 53 RT 10 56 17 17 18 0 8 23 PH MG AR MA CA CY PS UL #5 E 91 DU 57 08 30 30 00 MN Ac LO 23 -2 -2 .0 00 L- ti XE 70 5- 2- 00 07 MA ve TI 01 20 20 50 RT NE 93 17 17 60 0 38 PH HC AR L MA DR CY 60 #5 91 MG CA P LE 00 08 30 30 [facility] VO 78 -2 -1 .0 00 L- ti TH 15 2- 5- 00 07 MA ve YR 18 20 20 50 RT OX 49 17 17 53 IN 2 27 PH E AR 10 MA 0 CY MC G #5 TA 91 BL ET DU 57 08 30 30 [facility] LO 23 -0 -0 .0 00 L- ti XE 70 7- 1- 00 07 MA ve TI 01 20 20 50 RT NE 83 17 17 25 0 64 PH HC AR L MA DR CY 30 #5 91 MG CA P OM 60 07 30 30 00 [facility] EP 50 -3 -2 .0 00 L- ti RA 50 1- 5- 00 07 MA ve ZO 14 20 20 50 RT LE 60 17 17 [address] AR MA 40 CY MG #5 91 CA PS UL E 64 07 08 8. 28 00 MN Ac T 38 -3 -2 00 00 L- ti D2 00 1- 5- 0 07 MA ve 73 20 20 43 RT 1. 70 17 17 94 25 6 37 PH AR MG MA CY (5 0, #5 00 91 0 UN IT ) CE 00 07 08 30 30 00 MN Ac LE 59 -3 -2 .0 00 L- ti CO 13 1- 5- 00 07 MA ve XI 98 20 20 48 RT B 40 17 17 13 20 1 41 PH 0 AR MG MA CY CA PS #5 UL 91 E GA 00 08 08 90 30 00 MN Ac BA 22 -0 -2 .0 00 L- ti PE 82 2- 5- 00 04 MA ve NT 63 20 20 53 RT IN 65 17 17 08 0 91 PH 60 AR 0 MA MG CY TA #5 BL 91 ET CE 16 07 08 30 30 00 WA Ac TI 57 -3 -2 .0 00 L- ti RI 10 1- 5- 00 08 MA ve ZI 40 20 20 84 RT NE 25 17 17 05 0 02 PH HC AR L MA 10 CY MG #5 91 TA BL ET BI 29 08 08 30 30 00 WA Ac SO 30 -0 -2 .0 00 L- ti IN 00 2- 5- 00 07 MA ve OL 18 20 20 50 RT OL 81 17 17 13 -H [address] AR Z MA 5- CY 6. 25 #5 91 MG TA B GA 00 07 07 90 30 00 WA Ac BA 22 -0 -2 .0 00 L- ti PE 82 5- 8- 00 04 MA ve NT 63 20 20 53 RT IN 65 17 17 08 0 91 PH 60 AR 0 MA MG CY TA #5 BL 91 ET LE 00 06 07 30 30 00 WA Ac VO 78 -2 -2 .0 00 L- ti TH 15 8- 1- 00 07 MA ve YR 18 20 20 49 RT OX 49 17 17 16 IN 2 21 PH E AR 10 MA 0 CY MC G #5 TA 91 BL ET BI 00 06 07 30 30 00 WA Ac SO 37 -2 -2 .0 00 L- ti IN 80 8- 1- 00 07 MA ve OL 50 20 20 48 RT OL 30 17 17 30 -H [address] AR Z MA 5- CY 6. 25 #5 91 MG TA B CE 00 06 07 30 30 00 WA Ac LE 59 -2 -2 .0 00 L- ti CO 13 8- 1- 00 07 MA ve XI 98 20 20 48 RT B 40 17 17 13 20 1 41 PH 0 AR MG MA CY CA PS #5 UL 91 E DU 57 06 07 30 30 00 WA Ac LO 23 -2 -2 .0 00 L- ti XE 70 8- 1- 00 07 MA ve TI 01 20 20 48 RT NE 83 17 17 51 0 44 PH HC AR L MA DR CY 30 #5 91 MG CA P IB 68 06 07 90 30 00 WA Ac UP 64 -2 -2 .0 00 L- ti RO 50 8- 1- 00 07 MA ve FE 53 20 20 49 RT N 15 17 17 60 80 4 61 PH 0 AR MG MA CY TA BL #5 ET 91 CE 16 06 07 30 30 00 MN Ac TI 57 -2 -2 .0 00 L- ti RI 10 8- 1- 00 08 MA ve ZI 40 20 20 83 RT NE 25 17 17 90 0 85 PH HC AR L MA 10 CY MG #5 91 TA BL ET 64 06 07 8. 28 00 MN Ac T 38 -2 -2 00 00 L- ti D2 00 8- 1- 0 07 MA ve 73 20 20 43 RT 1. 70 17 17 94 25 6 37 PH AR MG MA CY (5 0, #5 00 91 0 UN IT ) OM 60 06 07 30 30 00 MN Ac EP 50 -2 -2 .0 00 L- ti RA 50 8- 1- 00 07 MA ve ZO 14 20 20 49 RT LE 60 17 [address] AR MA 40 CY MG #5 91 CA PS UL E GA 00 06 07 30 00 MN Ac BA 22 -0 -0 .0 00 L- ti PE 82 8- 7- 00 07 MA ve NT 63 20 20 48 RT IN 65 17 17 51 0 43 PH 60 AR 0 MA MG CY TA #5 BL 91 ET DU 57 06 05 23 30 00 MN Ac LO 23 -0 -3 .0 00 L- ti XE 70 4- 0- 00 07 MA ve TI 01 20 20 48 RT NE 83 17 17 51 0 44 PH HC AR L MA DR CY 30 #5 91 MG CA P LE 00 04 29 30 30 00 MN Ac VO 78 -0 -3 .0 00 L- ti TH 15 5- 0- 00 07 MA ve YR 18 20 20 49 RT OX 49 17 17 16 IN 2 21 PH E AR 10 MA 0 CY MC G #5 TA 91 BL ET CE 00 04 29 30 30 00 MN Ac LE 59 -0 -3 .0 00 L- ti CO 13 4- 0- 00 07 MA ve XI 98 20 20 48 RT B 40 17 17 13 20 1 41 PH 0 AR MG MA CY CA PS #5 UL 91 E BI 00 03 29 30 30 00 MN Ac SO 37 -2 -2 .0 00 L- ti IN 80 9- 3- 00 07 MA ve OL 50 20 20 48 RT OL 30 17 17 30 -H [address] AR Z MA 5- CY 6. 25 #5 91 MG TA B CE 16 05 05 23 30 00 MN Ac TI 57 -2 -2 .0 00 L- ti RI 10 9- 3- 00 08 MA ve ZI 40 20 20 83 RT NE 25 17 17 90 0 85 PH HC AR L MA 10 CY MG #5 91 TA BL ET 64 05 06 8. 28 00 MN Ac T 38 -2 -2 00 00 L- ti D2 00 9- 3- 0 07 MA ve 73 20 20 43 RT 1. 70 17 17 94 25 6 37 PH AR MG MA CY (5 0, #5 00 91 0 UN IT ) CY 68 05 06 12 4 00 MN Ac CL 64 -3 -2 .0 00 L- ti OB 50 1- 3- 00 07 MA ve EN 51 20 20 49 RT ZA 89 17 17 07 IN 0 50 PH IN AR E MA 10 CY MG #5 91 TA BL ET IB 68 05 06 21 6 00 MN Ac UP 64 -3 -2 .0 00 L- ti RO 50 1- 3- 00 07 MA ve FE 53 20 20 49 RT N 15 17 17 07 80 4 51 PH 0 AR MG MA CY TA BL #5 ET 91 OM 60 05 06 30 30 00 MN Ac EP 50 -1 -1 .0 00 L- ti RA 50 8- 6- 00 07 MA ve ZO 14 20 20 48 RT LE 60 17 [address] AR MA 40 CY MG #5 91 CA PS UL E LE 00 04 05 30 30 00 MN Ac VO 78 -2 -2 .0 00 L- ti TH 15 9- 6- 00 07 MA ve YR 18 20 20 47 RT OX 49 17 17 25 IN 2 39 PH E AR 10 MA 0 CY MC G #5 TA 91 BL ET DU 57 04 05 30 30 00 MN Ac LO 23 -2 -2 .0 00 L- ti XE 70 9- 6- 00 07 MA ve TI 01 20 20 48 RT NE 83 17 17 51 0 44 PH HC AR L MA DR CY 30 #5 91 MG CA P 64 04 05 8. 28 00 MN Ac T 38 -2 -1 00 00 L- ti D2 00 2- 9- 0 07 MA ve 73 20 20 43 RT 1. 70 17 17 94 25 6 37 PH AR MG MA CY (5 0, #5 00 91 0 UN IT ) GA 00 04 05 90 30 00 MN Ac BA 22 -2 -1 .0 00 L- ti PE 82 2- 9- 00 07 MA ve NT 63 20 20 47 RT IN 65 17 17 25 0 38 PH 60 AR 0 MA MG CY TA #5 BL 91 ET AC 00 04 05 30 3 00 CL Ac ET 09 -2 -1 .0 00 IN ti AM 30 5- 9- 00 00 IC ve IN 15 20 20 42 OP 01 17 17 91 PH HE 0 71 AR N- MA CO CY D #3 TA BL ET BI 00 04 05 30 30 00 MN Ac SO 37 -1 -1 .0 00 L- ti IN 80 8- 2- 00 07 MA ve OL 50 20 20 48 RT OL 30 17 17 30 -H [address] AR Z MA 5- CY 6. 25 #5 91 MG TA B CE 16 04 30 30 00 MN Ac TI 57 -1 -1 .0 00 L- ti RI 10 8- 2- 00 08 MA ve ZI 40 20 20 83 RT NE 25 17 17 90 0 85 PH HC AR L MA 10 CY MG #5 91 TA BL ET OM 60 04 30 30 00 MN Ac EP 50 -1 -1 .0 00 L- ti RA 50 7- 2- 00 07 MA ve ZO 14 20 20 41 RT LE 60 17 [address] AR MA 40 CY MG #5 91 CA PS UL E CE 00 04 30 30 00 MN Ac LE 59 -1 -1 .0 00 L- ti CO 13 7- 2- 00 07 MA ve XI 98 20 20 48 RT B 40 17 17 13 20 1 41 PH 0 AR MG MA CY CA PS #5 UL 91 E CE 00 03 30 30 00 MN Ac LE 59 -2 -2 .0 00 L- ti CO 13 5- 1- 00 07 MA ve XI 98 20 20 47 RT B 40 17 17 84 20 1 74 PH 0 AR MG MA CY CA PS #5 UL 91 E DU 57 03 30 30 00 MN Ac LO 23 -2 -2 .0 00 L- ti XE 70 5- 1- 00 07 MA ve TI 01 20 20 44 RT NE 83 17 17 27 0 64 PH HC AR L MA DR CY 30 #5 91 MG CA P GA 00 03 04 30 00 MN Ac BA 22 -2 -2 .0 00 L- ti PE 82 5- 1- 00 07 MA ve NT 63 20 20 47 RT IN 65 17 17 25 0 38 PH 60 AR 0 MA MG CY TA #5 BL 91 ET LE 00 03 04 30 30 00 MN Ac VO 78 -2 -2 .0 00 L- ti TH 15 5- 1- 00 07 MA ve YR 18 20 20 47 RT OX 49 17 17 25 IN 2 39 PH E AR 10 MA 0 CY MC G #5 TA 91 BL ET 64 03 04 8. 28 00 WA Ac T 38 -2 -2 00 00 L- ti D2 00 5- 1- 0 07 MA ve 73 20 20 43 RT 1. 70 17 17 94 25 6 37 PH AR MG MA CY (5 0, #5 00 91 0 UN IT ) OM 60 03 03 30 30 00 WA Ac EP 50 -0 -3 .0 00 L- ti RA 50 3- 1- 00 07 MA ve ZO 14 20 20 41 RT LE 60 17 [address] AR MA 40 CY MG #5 91 CA PS UL E CE 16 03 03 30 30 00 WA Ac TI 57 -0 -3 .0 00 L- ti RI 10 3- 1- 00 08 MA ve ZI 40 20 20 83 RT NE 25 17 17 71 0 60 PH HC AR L MA 10 CY MG #5 91 TA BL ET 64 02 03 8. 28 00 WA Ac T 38 -2 -2 00 00 L- ti D2 00 3- 4- 0 07 MA ve 73 20 20 43 RT 1. 70 17 17 94 25 6 37 PH AR MG MA CY (5 0, #5 00 91 0 UN IT ) GA 00 02 03 90 30 00 WA Ac BA 22 -2 -2 .0 00 L- ti PE 82 3- 4- 00 07 MA ve NT 63 20 20 47 RT IN 65 17 17 25 0 38 PH 60 AR 0 MA MG CY TA #5 BL 91 ET LE 00 02 03 30 30 00 WA Ac VO 78 -2 -2 .0 00 L- ti TH 15 3- 4- 00 07 MA ve YR 18 20 20 47 RT OX 49 17 17 25 IN 2 39 PH E AR 10 MA 0 CY MC G #5 TA 91 BL ET BI 00 02 03 30 30 00 WA Ac SO 37 -2 -2 .0 00 L- ti IN 80 3- 4- 00 07 MA ve OL 50 20 20 46 RT OL 30 17 17 65 -H [address] AR Z MA 5- CY 6. 25 #5 91 MG TA B CE 00 02 03 30 30 00 WA Ac LE 59 -2 -2 .0 00 L- ti CO 13 3- 4- 00 07 MA ve XI 98 20 20 45 RT B 40 17 17 54 20 1 92 PH 0 AR MG MA CY CA PS #5 UL 91 E DU 57 02 03 30 30 00 WA Ac LO 23 -0 -0 .0 00 L- ti XE 70 7- 3- 00 07 MA ve TI 01 20 20 44 RT NE 83 17 17 27 0 64 PH HC AR L MA DR CY 30 #5 91 MG CA P OM 60 01 02 30 30 00 MN Ac EP 50 -3 -2 .0 00 L- ti RA 50 1- 4- 00 07 MA ve ZO 14 20 20 41 RT LE 60 17 [address] AR MA 40 CY MG #5 91 CA PS UL E 64 01 02 8. 28 00 WA Ac T 38 -3 -2 00 00 L- ti D2 00 1- 4- 0 07 MA ve 73 20 20 43 RT 1. 70 17 17 94 25 6 37 PH AR MG MA CY (5 0, #5 00 91 0 UN IT ) CE 16 01 02 30 30 00 MN Ac TI 57 -2 -1 .0 00 L- ti RI 10 2- 7- 00 08 MA ve ZI 40 20 20 83 RT NE 25 17 17 71 0 60 PH HC AR L MA 10 CY MG #5 91 TA BL ET GA 00 01 02 90 30 00 MN Ac BA 22 -2 -1 .0 00 L- ti PE 82 2- 7- 00 07 MA ve NT 63 20 20 43 RT IN 65 17 17 44 0 52 PH 60 AR 0 MA MG CY TA #5 BL 91 ET BI 00 01 02 30 30 00 MN Ac SO 37 -2 -1 .0 00 L- ti IN 80 4- 7- 00 07 MA ve OL 50 20 20 46 RT OL 30 17 17 65 -H [address] AR Z MA 5- CY 6. 25 #5 91 MG TA B LE 00 02 30 30 00 MN Ac VO 78 -1 -1 .0 00 L- ti TH 15 4- 0- 00 07 MA ve YR 18 20 20 45 RT OX 49 17 17 01 IN 2 59 PH E AR 10 MA 0 CY MC G #5 TA 91 BL ET DU 57 01 02 30 30 00 MN Ac LO 23 -1 -1 .0 00 L- ti XE 70 4- 0- 00 07 MA ve TI 01 20 20 44 RT NE 83 17 17 27 0 64 PH HC AR L MA DR CY 30 #5 91 MG CA P CE 00 02 30 30 00 MN Ac LE 59 -1 -1 .0 00 L- ti CO 13 6- 0- 00 07 MA ve XI 98 20 20 45 RT B 40 17 17 54 20 1 92 PH 0 AR MG MA CY CA PS #5 UL 91 E 64 01 01 8. 28 00 MN Ac T 38 -0 -2 00 00 L- ti D2 00 2- 7- 0 07 MA ve 73 20 20 43 RT 1. 70 17 17 94 25 6 37 PH AR MG MA CY (5 0, #5 00 91 0 UN IT ) GA 00 12 01 90 30 00 MN Ac BA 22 -2 -2 .0 00 L- ti PE 82 3- 7- 00 07 MA ve NT 63 20 20 43 RT IN 65 16 17 44 0 52 PH 60 AR 0 MA MG CY TA #5 BL 91 ET OM 60 01 01 30 30 00 MN Ac EP 50 -0 -2 .0 00 L- ti RA 50 2- 7- 00 07 MA ve ZO 14 20 20 41 RT LE 60 17 17 [address] AR MA 40 CY MG #5 91 CA PS UL E AM 00 12 01 20 10 00 MN Ac OX 78 -1 -2 .0 00 L- ti -C 11 7- 0- 00 07 MA ve LA 85 20 20 45 RT V 22 16 17 91 87 0 80 PH 5- AR 12 MA 5 CY MG #5 TA 91 BL ET Encounters Encounter Start End Date Code Location Performer Type Date [facility] 6 6 [facility] - 6 6 [facility] - 6 6 [facility] 6 6 [facility] - 5 5 [facility] - 5 5 [facility] - 5 5 [facility] - 5 5 [facility] 5 5 [facility] - 5 5 [facility]
--- OUTSIDE RECORDS SUMMARY | 2017-10-18 21:26 | External Medical Summary Rpt | CCD ---
Author Author , [facility] Organization [facility] Address Unknown Phone .Call Loop Care Team Providers Care Drilling Contractor Name Role Phone KRYSTINA JUSTICE MD, PSC, Unavailable Unavailable KRYSTINA JUSTICE MD, PSC [facility] Unavailable Unavailable PRACTICE L, [facility] Un[facility] Unavailable SERVICE, [facility] Unavailable Unavailable [facility]IER, [facility] Unavailable Unavailable [facility] NATALIYA SEKOU, NATALIYA SEKOU Unavailable Unavailable NÚÑEZ, NÚÑEZ Unavailable Unavailable [facility] Unavailable Unavailable INC, [facility] Unavailable Unavailable HOSPITAL, [facility] Unavailable Unavailable HOSPITAL P, [facility], [facility]available Unavailable [facility] Un[facility], [facility] [place] Unavailable Unavailable [facility] MED, [facility] Unavailable [facility]available [facility], Unavailable Unavailable PLL, [facility], [facility] Purpose Continuity of Care Document - 06-23-2014 through 2016 Problems Code Diagnosis DOS Provider Status J0100 ACUTE 08-15-2017 [facility] [place] SINUSITIS INTERNAL UNSPECIFIED MED M797 FIBROMYALGI 08-01-2017 [facility] INTERNAL MED Z23 ENCOUNTER 08-01-2017 [facility] FOR [facility] IMMUNIZATIO INTERNAL N MED D259 LEIOMYOMA 07-22-2017 [facility] UNSPECIFIED GROUP N8301 FOLLICULAR 07-22-2017 [facility] YANG & RIGHT OVARY DUBILIER N8302 FOLLICULAR 07-22-2017 [facility] CYST OF YANG & LEFT OVARY DUBILIER N8311 CORPUS 07-22-2017 [facility] LUTEUM CYST YANG & OF RIGHT DUBILIER OVARY N838 OTH 07-22-2017 [facility] NONINFLAMM YANG & D/O OVARY DUBILIER FALLOP TUBE & BROAD LIG R102 PELVIC AND 07-22-2017 [facility] PAIN GROUP I10 ESSENTIAL 07-17-2017 [place] [facility] HYPERTENSIO IMAGING ASS N Z81670 ENCOUNTER 07-17-2017 [facility] P AL CARIOVASCUL AR EXAM N42896 ENCOUNTER 07-17-2017 [facility] P AL RESPIRATORY EXAM K27367 ENCOUNTER 07-17-2017 [place] FOR OTHER MEDICAL PREPROCEDUR IMAGING ASS AL EXAMINATION M461 SACROILIITI 05-20-2017 Alin KNOTT MD, PSC ELSEWHERE CLASSIFIED M7062 TROCHANTERI 05-20-2017 Jodie KNOTT BURSITIS , PSC LEFT HIP N939 ABNORMAL 03-18-2017 [facility] ANESTH OF VAGINAL THE BLUE BLEEDING UNSPECIFIED N950 POSTMENOPAU 03-18-2017 [facility] BLEEDING GROUP U42610 ENCOUNTER 03-14-2017 [facility] P AL LABORATORY EXAM J302 OTHER 02-18-2017 [facility] SEASONAL [facility] ALLERGIC INTERNAL RHINITIS MED H32405 UNSPECIFIED 02-18-2017 [facility]IAN [facility] CYST RIGHT GROUP SIDE N938 OTHER SPEC 02-13-2017 [place] ABNORMAL MEDICAL UTERINE & IMAGING ASS VAGINAL BLEEDING Z1231 ENCOUNTER 02-13-2017 [place] SCREENING MEDICAL MAMMO MALIG IMAGING ASS NEOPLASM BREAST N951 MENOPAUSAL 02-04-2017 [facility] CLIMACTERIC GROUP STATES F56112 ATYP SQ 02-04-2017 [facility] CELLS UNDET [facility] GROUP SIGNIFICANC E CYTOL SMER CERV S23063 ENCOUNTER 02-04-2017 [facility] SPECIALIST EXAM PHYSICIANS GENERAL RTN GROUP W/ABNORMAL FIND Z1212 ENCOUNTER 02-04-2017 [facility] SCRE[facility]ING [facility] MALIGNANT GROUP NEOPLASM RECTUM E039 HYPOTHYROID 12-16-2016 [facility]M [facility] UNSPECIFIED INTERNAL MED R002 PALPITATION 12-16-2016 [facility] S [facility] INTERNAL MED D125 BENIGN 12-03-2016 [facility] NEOP[facility]M OF [facility] SIGMOID GROUP COLON R198 OTH SPEC SX 12-03-2016 [facility] SIGNS [facility] INVLV THE GROUP DIGESTV SYS & ABD Z1211 ENCOUNTER 12-03-2016 [facility] SCRE[facility]ING [facility] MALIGNANT GROUP NEOPLASM OF COLON H6692 OTITIS 11-09-2016 [facility] MEDIA [facility] UNSPECIFIED GROUP LEFT EAR J029 ACUTE 11-09-2016 [facility] PHARYNGITIS [facility]ANS GROUP UNSPECIFIED J320 CHRONIC 11-09-2016 [facility]ARY [facility] SINUSITIS GROUP D126 BENIGN 10-31-2016 [facility] NEOP[facility]M OF [facility] COLON UNSPECIFIED K635 POLYP OF 10-31-2016 [facility] COLON [facility] K644 RESIDUAL 10-31-2016 [facility] HEMORRHOIDA [facility] L SKIN TAGS GROUP K5900 CONSTIPATIO 08-27-2016 [facility] N [facility] UNSPECIFIED GROUP R1032 LEFT LOWER 08-27-2016 [facility] QUADRANT [facility] PAIN GROUP R109 UNSPECIFIED 08-24-2016 [facility]OMINAL [facility] PAIN INTERNAL MED R739 HYPERGLYCEM 08-24-2016 [facility] [place] [facility] UNSPECIFIED INTERNAL MED C78777 PRIMARY 08-23-2016 [place] OSTEOARTHRI MEDICAL TIS RIGHT IMAGING ASS SHOULDER I25227 PAIN IN 08-23-2016 [place] RIGHT MEDICAL SHOULDER IMAGING ASS F22646 PAIN IN 08-23-2016 [place] LEFT MEDICAL SHOULDER IMAGING ASS E669 OBESITY [...] ARTHROPATHY 07-24-2016 [facility] UNSPECIFIED INTERNAL MED R51939 DISEASES 07-24-2016 [facility] DIG[facility]IVE [facility] SYSTEM COMP INTERNAL MED 2ND TRI 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 [facility] D/O INC W/RADICULOP ATHY LUMB RGN M5126 OTH 06-24-2016 JOSE KNOTT MD, PSC RAL DISC DISPLACEMEN T LUMBAR RGN G8929 OTHER 06-05-2016 [facility] CHRONIC [facility] PAIN INTERNAL MED K529 NONINFECTIV 06-05-2016 [facility] GASTROENTER INTERNAL ITIS & MED COLITIS UNS V93809 SPONDYLOSIS 05-21-2016 [place] W/O MEDICAL MYELOPATH/R IMAGING ASS ADICULOPATH Y LUMB RGN M4806 SPINAL 05-21-2016 [place] STENOSIS MEDICAL LUMBAR IMAGING ASS REGION M545 LOW BACK 05-21-2016 [place] [facility] M549 DORSALGIA 05-17-2016 [facility] UNSPECIFIED [facility] SERVICE F81103 MUSCLE 05-17-2016 [facility] BACK INC G85786 OTHER 05-17-2016 [facility], [facility] PLL[facility] B9689 OT SPEC 05-02-2016 [facility] BACTERIAL [place] AGNT CAUSE INTERNAL DZ MED CLASSIFIED ELSW N760 ACUTE 05-02-2016 [facility] VAG[facility] N898 OTHER 05-02-2016 [facility] SPECIFIED [facility] NONINFLAMMA TORY DISORDERS VAGINA N921 EXCESS & 05-02-2016 [facility] [place]REQUENT [place] MENSTRUATIO INTERNAL N MED W/IRREGULAR CYCLE N941 DYSPAREUNIA 05-02-2016 [facility] [place] INTERNAL MED Q91609 ENCOUNTER 05-02-2016 [facility] WARDROBE SPECIALIST EXAM [place] GENERAL RTN INTERNAL W/O MED ABNORMAL FIND J020 STREPTOCOCC 03-31-2016 [facility] PHARYNGITIS GROUP M7061 TROCHANTERI 03-15-2016 Jodie KNOTT BURSITIS , PSC RIGHT HIP M791 MYALGIA 02-26-2016 KRYSTINA JUSTICE MD, PSC M4724 OT 02-17-2016 NÚÑEZ SPONDYLOSIS W/RADICULOP ATHY THORACIC REGION V97244 SPONDYLOSIS 02-17-2016 NÚÑEZ W/O MYELOPATH/R ADICULOPATH SAC [...] PRACTICE L J069 ACUTE UPPER 02-07-2016 [facility] [place] RESPIRATORY INTERNAL INFECTION MED UNSPECIFIED M2662 ARTHRALGIA 02-07-2016 [place] OF PHYSICIAN TEMPOROMAND PRACTICE L IBULAR JOINT R0683 SNORING 02-07-2016 [facility] PH[facility]IAN PRACTICE L F61122 PAIN IN 01-19-2016 [place] RIGHT HIP MEDICAL IMAGING ASS A64440 PAIN IN 01-19-2016 [place] LEFT HIP MEDICAL IMAGING ASS 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 01-19-2016 [place] VERTEBRAE [facility]ICAL IMAG[facility] ASS M5135 OTH 01-19-2016 [place] 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 J0190 ACUTE 12-30-2015 [facility] SINUSITIS [facility] UNSPECIFIED GROUP R05 COUGH 12-30-2015 [facility] X67249 OTHER 10-24-2015 [facility] INFECTIVE [facility] OTITIS [facility] EXTERNA UNSPECIFIED EAR Z5329 PROC & [place] 10-24-2015 [facility] NOT CARRIED [facility] OUT INC PATIENTS OT REASON T40187 ACUTE & 10-09-2015 [place] SUBACUTE [facility] ALLERGIC [facility] OTITS MEDIA RIGHT EAR 7265 ENTHESOPATH 08-16-2015 [facility] Y OF HIP PHYSICIANS REGION GROUP 96398 NAUSEA 06-29-2015 [facility] ALONE [facility] 7873 FLATULENCE 06-29-2015 [facility] ERUCTATION PHYSICIANS AND GAS GROUP PAIN 27991 ABDOMINAL 06-29-2015 [facility] PAIN, PHYSICIANS EPIGASTRIC GROUP 7871 HEARTBURN 06-13-2015 [facility] 2449 UNSPECIFIED 06-12-2015 [facility] HYPOTHYROID INTERNAL ISM MED 4019 UNSPECIFIED 06-12-2015 [facility] ESSENTIAL [facility] HYPERTENSIO INTERNAL N MED 90112 ESOPHAGEAL 06-12-2015 [facility] REFLUX [facility] INTERNAL MED 7248 OTHER 06-12-2015 [facility] SYMPTOMS [facility] REFERABLE INTERNAL TO BACK MED 7336 TIETZES 05-25-2015 [facility] DISEASE PHYS[facility]IANS, [facility] 45460 CHEST PAIN 05-25-2015 [place] UNSPECIFIED MEDICAL IMAGING ASS 490 BRONCHITIS 05-08-2015 [facility] NOT [facility] SPECIFIED INTERNAL ACUTE OR MED CHRONIC 7862 COUGH 05-08-2015 [facility] INTERNAL MED 10303 SPASM OF 03-16-2015 [facility] MUSCLE AMBULANCE SERVICE 7804 DIZZINESS 03-16-2015 [place] [facility] AND [facility] EyeSpot [facility] 48972 SHORTNESS 03-16-2015 [facility] OF BREATH AMBULANCE SERVICE 36705 OTHER CHEST 03-16-2015 [facility] PAIN [place] INTERNAL MED 4139 OTHER AND 01-30-2015 [place] UNSPECIFIED [facility] P [place] 17458 PAIN IN 01-30-2015 [place] JOINT, MEDICAL SHOULDER IMAGING ASS REGION 98243 PAIN IN 01-30-2015 [place] JOINT MEDICAL PELVIC IMAGING ASS REGION AND THIGH 7231 CERVICALGIA 01-30-2015 [place] [facility] 15064 CONTUSION 01-30-2015 [facility] OF SHOULDER [facility] P 38413 CONTUSION 01-30-2015 [facility] OF HIP [facility] P 9592 INJURY 01-30-2015 [place] OTHER&UNSPE MEDICAL CIFIED IMAGING ASS SHOULDER&UP PER ARM 3899 UNSPECIFIED 01-04-2015 [facility] HEARING PHYSICIAN LOSS PRACTICE L 82024 UNSPECIFIED 12-13-2014 [facility] TINNITUS PHYSICIAN PRACTICE L 4739 UNSPECIFIED 12-13-2014 [facility] SINUSITIS PHYSICIAN PRACTICE L 24431 UNSPECIFIED 12-13-2014 [facility] SLEEP PHYSICIAN APNEA PRACTICE L 89969 OTHER 12-13-2014 [facility] DYSPNEA AND PHYSICIAN PRACTICE L RESPIRATORY ABNORMALITI ES V7612 OTHER 12-06-2014 [place] SCREENING MEDICAL MAMMOGRAM IMAGING ASS 3814 NONSUPPRATV 11-28-2014 [facility] OTITIS [facility] MEDIA NOT INTERNAL SPEC MED ACUT/CHRON 99292 ACUTE 11-07-2014 [facility] SEROUS [facility] OTITIS INTERNAL MEDIA MED 23204 UNSPECIFIED 08-30-2014 [facility] VIRAL [facility] INFECTION INTERNAL IN CCE & MED UNS SITE 39775 UNSPECIFIED 08-12-2014 [facility] ARTHROPATHY INTERNAL MULTIPLE MED SITES 7291 UNSPECIFIED 08-12-2014 [facility] MYALGIA VAL[facility] AND INTERNAL MYOSITIS MED 85143 OTHER 08-12-2014 [facility] MALAISE AND [facility] FATIGUE INTERNAL MED 14018 MEMORY LOSS 08-12-2014 [facility] INTERNAL MED 460 ACUTE 08-01-2014 [facility] NASOPHARYNG [facility] ITIS INTERNAL MED 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 NATALIYA SKEOU EYELIDS 4720 CHRONIC 07-02-2014 [facility] RHINITIS [facility] [...] 30 -0 -0 .0 00 TE ti SD 00 8- 3- 00 01 ve OL [...] CE 16 09 10 30 30 00 AL Ac TI 57 -1 -1 .0 00 L- ti RI 10 5- 3- 00 08 MA ve ZI 40 20 20 84 RT NE 25 17 17 05 0 02 PH HC AR L MA 10 CY MG #5 91 TA BL ET OM 60 09 10 30 30 00 AL Ac EP 50 -1 -1 .0 00 L- ti RA 50 5- 3- 00 07 MA ve ZO 14 20 20 50 RT LE 60 17 17 [address] AR MA 40 CY MG #5 91 CA PS UL E AC 00 09 10 28 7 00 AL Ac YC 09 -1 -1 .0 00 L- ti LO 38 9- 3- 00 07 MA ve 94 20 20 51 RT R 70 17 17 05 80 1 64 PH 0 AR MG MA CY TA BL #5 ET 91 HY 00 09 10 [address] 40 -1 -1 .0 00 L- ti OC 60 4- 3- 00 02 MA ve OD 12 20 20 24 RT ON 30 17 17 19 -A 1 04 PH CE AR TA MA KS CY NO PH #5 EN 91 5- 32 5 AL 00 09 10 1. 1 00 AL Ac SD 22 -1 -0 00 00 L- ti AZ 82 3- 6- 0 04 MA ve OL 03 20 20 53 RT AM 15 17 17 21 1 0 00 PH AR MG MA CY TA BL #5 ET 91 BI 29 09 10 30 30 00 RI Ac SO 30 -0 -0 .0 00 TE ti SD 00 9- 6- 00 01 ve OL 18 20 20 19 AI OL 80 17 17 89 D -H [address] AR Z MA 5- CY 6. 25 #3 93 MG 8 TA B CE 68 09 09 14 7 00 AL Ac FD 18 -0 -2 .0 00 L- ti IN 00 1- 9- 00 07 MA ve IR 71 20 20 50 RT 16 17 17 71 30 0 85 PH 0 AR MG MA CY CA PS #5 UL 91 E OX 00 09 09 30 8 00 [facility] YC 40 -0 -2 .0 00 L- ti OD 60 1- 9- 00 02 MA ve ON 52 20 20 24 RT -A 20 17 17 17 CE 1 49 PH TA AR KS MA NO CY PH EN #5 91 7. 5- 32 5 LY 00 08 09 60 30 00 [facility] RI 07 -2 -2 .0 00 L- ti CA 11 8- 2- 00 04 MA ve 01 20 20 53 RT 10 56 17 17 18 0 8 23 PH MG AR MA CA CY PS UL #5 E 91 DU 57 08 30 30 00 AL Ac LO 23 -2 -2 .0 00 L- ti XE 70 5- 2- 00 07 MA ve TI 01 20 20 50 RT NE 93 17 17 60 0 38 PH HC AR L MA DR CY 60 #5 91 MG CA P LE 00 08 30 30 [facility] VO 78 -2 -1 .0 00 L- ti TH 15 2- 5- 00 07 MA ve YR 18 20 20 50 RT OX 49 17 17 53 IN 2 27 PH E AR 10 MA 0 CY MC G #5 TA 91 BL ET DU 57 08 30 30 [facility] LO 23 -0 -0 .0 00 L- ti XE 70 7- 1- 00 07 MA ve TI 01 20 20 50 RT NE 83 17 17 25 0 64 PH HC AR L MA DR CY 30 #5 91 MG CA P OM 60 07 30 30 00 [facility] EP 50 -3 -2 .0 00 L- ti RA 50 1- 5- 00 07 MA ve ZO 14 20 20 50 RT LE 60 17 17 [address] AR MA 40 CY MG #5 91 CA PS UL E 64 07 08 8. 28 00 AL Ac T 38 -3 -2 00 00 L- ti D2 00 1- 5- 0 07 MA ve 73 20 20 43 RT 1. 70 17 17 94 25 6 37 PH AR MG MA CY (5 0, #5 00 91 0 UN IT ) CE 00 07 08 30 30 00 AL Ac LE 59 -3 -2 .0 00 L- ti CO 13 1- 5- 00 07 MA ve XI 98 20 20 48 RT B 40 17 17 13 20 1 41 PH 0 AR MG MA CY CA PS #5 UL 91 E GA 00 08 08 90 30 00 AL Ac BA 22 -0 -2 .0 00 [...] 30 -0 -2 .0 00 L- ti SD 00 2- 5- 00 07 MA ve [...] 37 -2 -2 .0 00 L- ti SD 80 8- 1- 00 07 MA ve [...] CE 16 06 07 30 30 00 AL Ac TI 57 -2 -2 .0 00 L- ti RI 10 8- 1- 00 08 MA ve ZI 40 20 20 83 RT NE 25 17 17 90 0 85 PH HC AR L MA 10 CY MG #5 91 TA BL ET 64 06 07 8. 28 00 AL Ac T 38 -2 -2 00 00 L- ti D2 00 8- 1- 0 07 MA ve 73 20 20 43 RT 1. 70 17 17 94 25 6 37 PH AR MG MA CY (5 0, #5 00 91 0 UN IT ) OM 60 06 07 30 30 00 AL Ac EP 50 -2 -2 .0 00 L- ti RA 50 8- 1- 00 07 MA ve ZO 14 20 20 49 RT LE 60 17 17 [address] AR MA 40 CY MG #5 91 CA PS UL E GA 00 06 07 30 00 AL Ac BA 22 -0 -0 .0 00 L- ti PE 82 8- 7- 00 07 MA ve NT 63 20 20 48 RT IN 65 17 17 51 0 43 PH 60 AR 0 MA MG CY TA #5 BL 91 ET DU 57 06 05 23 30 00 AL Ac LO 23 -0 -3 .0 00 L- ti XE 70 4- 0- 00 07 MA ve TI 01 20 20 48 RT NE 83 17 17 51 0 44 PH HC AR L MA DR CY 30 #5 91 MG CA P LE 00 04 29 30 30 00 AL Ac VO 78 -0 -3 .0 00 L- ti TH 15 5- 0- 00 07 MA ve YR 18 20 20 49 RT OX 49 17 17 16 IN 2 21 PH E AR 10 MA 0 CY MC G #5 TA 91 BL ET CE 00 04 29 30 30 00 AL Ac LE 59 -0 -3 .0 00 L- ti CO 13 4- 0- 00 07 MA ve XI 98 20 20 48 RT B 40 17 17 13 20 1 41 PH 0 AR MG MA CY CA PS #5 UL 91 E BI 00 03 29 30 30 00 AL Ac SO 37 -2 -2 .0 00 L- ti SD 80 9- 3- 00 07 MA ve OL 50 20 20 48 RT OL 30 17 17 30 -H [address] AR Z MA 5- CY 6. 25 #5 91 MG TA B CE 16 05 05 23 30 00 AL Ac TI 57 -2 -2 .0 00 L- ti RI 10 9- 3- 00 08 MA ve ZI 40 20 20 83 RT NE 25 17 17 90 0 85 PH HC AR L MA 10 CY MG #5 91 TA BL ET 64 05 06 8. 28 00 AL Ac T 38 -2 -2 00 00 L- ti D2 00 9- 3- 0 07 MA ve 73 20 20 43 RT 1. 70 17 17 94 25 6 37 PH AR MG MA CY (5 0, #5 00 91 0 UN IT ) CY 68 05 06 12 4 00 AL Ac CL 64 -3 -2 .0 00 L- ti OB 50 1- 3- 00 07 MA ve EN 51 20 20 49 RT ZA 89 17 17 07 SD 0 50 PH IN AR E MA 10 CY MG #5 91 TA BL ET IB 68 05 06 21 6 00 AL Ac UP 64 -3 -2 .0 00 L- ti RO 50 1- 3- 00 07 MA ve FE 53 20 20 49 RT N 15 17 17 07 80 4 51 PH 0 AR MG MA CY TA BL #5 ET 91 OM 60 05 06 30 30 00 AL Ac EP 50 -1 -1 .0 00 L- ti RA 50 8- 6- 00 07 MA ve ZO 14 20 20 48 RT LE 60 17 [address] AR MA 40 CY MG #5 91 CA PS UL E LE 00 04 05 30 30 00 AL Ac VO 78 -2 -2 .0 00 L- ti TH 15 9- 6- 00 07 MA ve YR 18 20 20 47 RT OX 49 17 17 25 IN 2 39 PH E AR 10 MA 0 CY MC G #5 TA 91 BL ET DU 57 04 05 30 30 00 AL Ac LO 23 -2 -2 .0 00 L- ti XE 70 9- 6- 00 07 MA ve TI 01 20 20 48 RT NE 83 17 17 51 0 44 PH HC AR L MA DR CY 30 #5 91 MG CA P 64 04 05 8. 28 00 AL Ac T 38 -2 -1 00 00 L- ti D2 00 2- 9- 0 07 MA ve 73 20 20 43 RT 1. 70 17 17 94 25 6 37 PH AR MG MA CY (5 0, #5 00 91 0 UN IT ) GA 00 04 05 90 30 00 AL Ac BA 22 -2 -1 .0 00 [...] BI 00 04 05 30 30 00 AL Ac SO 37 -1 -1 .0 00 L- ti SD 80 8- 2- 00 07 MA ve OL 50 20 20 48 RT OL 30 17 17 30 -H [address] AR Z MA 5- CY 6. 25 #5 91 MG TA B CE 16 04 30 30 00 AL Ac TI 57 -1 -1 .0 00 L- ti RI 10 8- 2- 00 08 MA ve ZI 40 20 20 83 RT NE 25 17 17 90 0 85 PH HC AR L MA 10 CY MG #5 91 TA BL ET OM 60 04 30 30 00 AL Ac EP 50 -1 -1 .0 00 L- ti RA 50 7- 2- 00 07 MA ve ZO 14 20 20 41 RT LE 60 17 [address] AR MA 40 CY MG #5 91 CA PS UL E CE 00 04 30 30 00 AL Ac LE 59 -1 -1 .0 00 L- ti CO 13 7- 2- 00 07 MA ve XI 98 20 20 48 RT B 40 17 17 13 20 1 41 PH 0 AR MG MA CY CA PS #5 UL 91 E CE 00 03 30 30 00 AL Ac LE 59 -2 -2 .0 00 L- ti CO 13 5- 1- 00 07 MA ve XI 98 20 20 47 RT B 40 17 17 84 20 1 74 PH 0 AR MG MA CY CA PS #5 UL 91 E DU 57 03 30 30 00 AL Ac LO 23 -2 -2 .0 00 L- ti XE 70 5- 1- 00 07 MA ve TI 01 20 20 44 RT NE 83 17 17 27 0 64 PH HC AR L MA DR CY 30 #5 91 MG CA P GA 00 03 04 30 00 AL Ac BA 22 -2 -2 .0 00 L- ti PE 82 5- 1- 00 07 MA ve NT 63 20 20 47 RT IN 65 17 17 25 0 38 PH 60 AR 0 MA MG CY TA #5 BL 91 ET LE 00 03 04 30 30 00 AL Ac VO 78 -2 -2 .0 00 [...] 37 -2 -2 .0 00 L- ti SD 80 3- 4- 00 07 MA ve [...] OM 60 01 02 30 30 00 AL Ac EP 50 -3 -2 .0 00 [...] CE 16 01 02 30 30 00 AL Ac TI 57 -2 -1 .0 00 L- ti RI 10 2- 7- 00 08 MA ve ZI 40 20 20 83 RT NE 25 17 17 71 0 60 PH HC AR L MA 10 CY MG #5 91 TA BL ET GA 00 01 02 90 30 00 AL Ac BA 22 -2 -1 .0 00 L- ti PE 82 2- 7- 00 07 MA ve NT 63 20 20 43 RT IN 65 17 17 44 0 52 PH 60 AR 0 MA MG CY TA #5 BL 91 ET BI 00 01 02 30 30 00 AL Ac SO 37 -2 -1 .0 00 L- ti SD 80 4- 7- 00 07 MA ve OL 50 20 20 46 RT OL 30 17 17 65 -H [address] AR Z MA 5- CY 6. 25 #5 91 MG TA B LE 00 02 30 30 00 AL Ac VO 78 -1 -1 .0 00 L- ti TH 15 4- 0- 00 07 MA ve YR 18 20 20 45 RT OX 49 17 17 01 IN 2 59 PH E AR 10 MA 0 CY MC G #5 TA 91 BL ET DU 57 01 02 30 30 00 AL Ac LO 23 -1 -1 .0 00 L- ti XE 70 4- 0- 00 07 MA ve TI 01 20 20 44 RT NE 83 17 17 27 0 64 PH HC AR L MA DR CY 30 #5 91 MG CA P CE 00 02 30 30 00 AL Ac LE 59 -1 -1 .0 00 L- ti CO 13 6- 0- 00 07 MA ve XI 98 20 20 45 RT B 40 17 17 54 20 1 92 PH 0 AR MG MA CY CA PS #5 UL 91 E 64 01 01 8. 28 00 AL Ac T 38 -0 -2 00 00 L- ti D2 00 2- 7- 0 07 MA ve 73 20 20 43 RT 1. 70 17 17 94 25 6 37 PH AR MG MA CY (5 0, #5 00 91 0 UN IT ) GA 00 12 01 90 30 00 AL Ac BA 22 -2 -2 .0 00 L- ti PE 82 3- 7- 00 07 MA ve NT 63 20 20 43 RT IN 65 16 17 44 0 52 PH 60 AR 0 MA MG CY TA #5 BL 91 ET OM 60 01 01 30 30 00 AL Ac EP 50 -0 -2 .0 00 L- ti RA 50 2- 7- 00 07 MA ve ZO 14 20 20 41 RT LE 60 17 [address] AR MA 40 CY MG #5 91 CA PS UL E AM 00 12 01 20 10 00 AL Ac OX 78 -1 -2 .0 00 L- ti -C 11 7- 0- 00 07 MA ve LA 85 20 20 45 RT V 22 16 17 91 87 0 80 PH 5- AR 12 MA 5 CY MG #5 TA 91 BL ET Encounters Encounter Start End Date Code Location Performer Type Date [facility] - 6 6 [facility] - 6 6 [facility] - 6 6 [facility] - 6 6 [facility] - 5 5 [facility] - 5 5 [facility] - 5 5 [facility] - 5 5 [facility] - 5 5 [facility] - 5 5 [facility] 4 4 [facility]
--- OUTSIDE RECORDS SUMMARY | 2017-10-18 21:30 | External Medical Summary Rpt | CCD ---
Author Author , TRACEY WEBB Address Unknown Phone [email or web address] Care Team Providers Care Information Technology Administrator Name Role Phone KRYSTINA JUSTICE MD, PSC, Unavailable Unavailable KRYSTINA JUSTICE MD, PSC [facility] Unavailable Unavailable PRACTICE L, [facility] Unavailable [facility], [facility] & Unavailable Unavailable [facility], [facility] Unavailable Unavailable [facility], [facility] NATALIYA SEKOU, NATALIYA SEKOU Unavailable Unavailable NÚÑEZ, NÚÑEZ Unavailable Unavailable [facility] Unavailable Unavailable INC, [facility] Unavailable Unavailable HOSPITAL, [facility] Unavailable Unavailable HOSPITAL P, [facility], Unavailable Unavailable [facility] Un[facility] [place] Unavailable Unavailable [facility], [facility], Unavailable Unavailable PLL, [facility], [facility] Purpose Continuity of Care Document - 06-23-2014 through 2016 Problems Code Diagnosis DOS Provider Status J0100 ACUTE 08-15-2017 [facility] [place] SINUSITIS INTERNAL UNSPECIFIED MED M797 FIBROMYALGI 08-01-2017 [facility] [place] INTERNAL MED Z23 ENCOUNTER 08-01-2017 [facility] FOR [facility] IMMUNIZATIO INTERNAL N MED D259 LEIOMYOMA 07-22-2017 [facility] OF UTERUS PHYSICIANS UNSPECIFIED GROUP N8301 FOLLICULAR 07-22-2017 [facility] YANG & RIGHT OVARY DUBILIER N8302 FOLLICULAR 07-22-2017 [facility] CYST OF YANG & LEFT OVARY DUBILIER N8311 CORPUS 07-22-2017 [facility] LUTEUM CYST YANG & OF RIGHT DUBILIER OVARY N838 OTH 07-22-2017 [facility] NONINFLAMM YANG & D/O OVARY DUBILIER FALLOP TUBE & BROAD LIG R102 PELVIC AND 07-22-2017 [facility] PERINEAL PHYSICIANS PAIN GROUP I10 ESSENTIAL 07-17-2017 [place] [facility]IMARY [facility] HYPERTENSIO IMAGING ASS N R26803 ENCOUNTER 07-17-2017 [facility] AL CARIOVASCUL AR EXAM N96886 ENCOUNTER 07-17-2017 [facility] P AL RESPIRATORY EXAM [id number] ENCOUNTER 07-17-2017 [place] FOR OTHER MEDICAL PREPROCEDUR IMAGING ASS AL EXAMINATION M461 SACROILIITI 05-20-2017 Alin KNOTT MD, PSC ELSEWHERE CLASSIFIED M7062 TROCHANTERI 05-20-2017 Jodie KNOTT BURSITIS , PSC LEFT HIP N939 ABNORMAL 03-18-2017 [facility] VAGINAL [facility] BLEEDING UNSPECIFIED N950 POSTMENOPAU 03-18-2017 [facility] DONELL PHYSICIANS BLEEDING GROUP E43168 ENCOUNTER 03-14-2017 [facility] P AL LABORATORY EXAM J302 OTHER 02-18-2017 [facility] SE[facility]ONAL [facility] ALLERGIC INTERNAL RHINITIS MED O51816 UNSPECIFIED 02-18-2017 [facility] OVARIAN PHYSICIANS CYST RIGHT GROUP SIDE N938 OTHER SPEC 02-13-2017 [place] ABNORMAL MEDICAL UTERINE & IMAGING ASS VAGINAL BLEEDING Z1231 ENCOUNTER 02-13-2017 [place] SCREENING MEDICAL MAMMO MALIG IMAGING ASS NEOPLASM BREAST N951 MENOPAUSAL 02-04-2017 [facility] AND FEMALE PHYSICIANS CLIMACTERIC GROUP STATES D74238 ATYP SQ 02-04-2017 [facility] CELLS UNDET PHYSICIANS GROUP SIGNIFICANC E CYTOL SMER CERV Z28692 ENCOUNTER 02-04-2017 [facility] 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 SYSTEM 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 EXAM PHYSICIANS GENERAL RTN GROUP W/ABNORMAL FIND Z1212 ENCOUNTER 02-04-2017 [facility] SCREENING PHYSICIANS MALIGNANT GROUP NEOPLASM RECTUM E039 HYPOTHYROID 12-16-2016 [facility] ISM [facility] UNSPECIFIED INTERNAL MED R002 PALPITATION 12-16-2016 [facility] S [facility] INTERNAL MED 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 R198 OTH SPEC SX 12-03-2016 [facility] & SIGNS PHYSICIANS INVLV THE GROUP DIGESTV SYS & ABD Z1211 ENCOUNTER 12-03-2016 [facility] SCREENING PHYSICIANS MALIGNANT GROUP NEOPLASM OF COLON H6692 OTITIS 11-09-2016 [facility] MEDIA PHYSICIANS UNSPECIFIED GROUP LEFT EAR J029 ACUTE 11-09-2016 [facility] PHARYNGITIS PHYSICIANS GROUP UNSPECIFIED J320 CHRONIC 11-09-2016 [facility] MAXILLARY PHYSICIANS SINUSITIS GROUP D126 BENIGN 10-31-2016 [facility] COLON UNSPECIFIED K635 POLYP OF 10-31-2016 [facility] COLON PHYSICIANS GROUP K644 RESIDUAL 10-31-2016 [facility] HEMORRHOIDA PHYSICIANS L SKIN TAGS GROUP K5900 CONSTIPATIO 08-27-2016 [facility] N PHYSICIANS UNSPECIFIED GROUP R1032 LEFT LOWER 08-27-2016 [facility] QUADRANT PHYSICIANS PAIN GROUP R109 UNSPECIFIED 08-24-2016 [facility] ABDOMINAL [facility] PAIN INTERNAL MED R739 HYPERGLYCEM 08-24-2016 [facility] IA [facility] UNSPECIFIED INTERNAL MED Q70000 PRIMARY 08-23-2016 [place] OSTEOARTHRI MEDICAL TIS RIGHT IMAGING ASS SHOULDER N45187 PAIN IN 08-23-2016 [place] RIGHT MEDICAL SHOULDER IMAGING ASS S07260 PAIN IN 08-23-2016 [place] LEFT MEDICAL SHOULDER IMAGING ASS E669 OBESITY [...] ARTHROPATHY 07-24-2016 [facility] UNSPECIFIED INTERNAL MED N63192 DISEASES 07-24-2016 [facility] DIGESTIVE [facility] SYSTEM COMP INTERNAL MED 2ND TRI 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 D/O INC W/RADICULOP ATHY LUMB RGN M5126 OTH 06-24-2016 OJSE KNOTT MD, PSC RAL DISC DISPLACEMEN T LUMBAR RGN G8929 OTHER 06-05-2016 [facility] CHRONIC [facility] PAIN INTERNAL MED K529 NONINFECTIV 06-05-2016 [facility] INTERNAL ITIS & MED COLITIS UNS W99364 SPONDYLOSIS 05-21-2016 [place] W/O MEDICAL MYELOPATH/R IMAGING ASS ADICULOPATH Y LUMB RGN M4806 SPINAL 05-21-2016 [place] STENOSIS MEDICAL LUMBAR IMAGING ASS REGION M545 LOW BACK 05-21-2016 [place] PAIN MEDICAL IMAGING ASS M549 DORSALGIA 05-17-2016 [facility] UNSPECIFIED [facility] SERVICE I58820 MUSCLE 05-17-2016 [facility] MEM HOS[facility] BACK INC C54904 OTHER 05-17-2016 [facility] MUSCLE PHYSICIANS, [facility] PLL[facility] B9689 OT SPEC 05-02-2016 [facility] BACTERIAL [facility]LEY AGNT CAUSE INTERNAL DZ MED CLASSIFIED ELSW N760 ACUTE 05-02-2016 [facility] V[facility] N898 OTHER 05-02-2016 [facility] SPECIFIED [facility] NONINFLAMMA TORY DISORDERS VAGINA N921 EXCESS & 05-02-2016 [facility] FREQUENT [facility] MENSTRUATIO INTERNAL N MED W/IRREGULAR CYCLE N941 DYSPAREUNIA 05-02-2016 [facility] [place] INTERNAL MED V53106 ENCOUNTER 05-02-2016 [facility] 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 SYSTEM MACHINIST EXAM VALLEY GENERAL RTN INTERNAL W/O MED ABNORMAL FIND J020 STREPTOCOCC 03-31-2016 [facility] AL PHYSICIANS PHARYNGITIS GROUP M7061 TROCHANTERI 03-15-2016 Jodie KNOTT BURSITIS , PSC RIGHT HIP M791 MYALGIA 02-26-2016 KRYSTINA JUSTICE MD, PSC M4724 OTH 02-17-2016 NÚÑEZ SPONDYLOSIS W/RADICULOP ATHY THORACIC REGION J08725 SPONDYLOSIS 02-17-2016 NÚÑEZ W/O MYELOPATH/R ADICULOPATH SAC [...] PRACTICE L J069 ACUTE UPPER 02-07-2016 [facility] [place] RESPIRATORY INTERNAL INFECTION MED UNSPECIFIED M2662 ARTHRALGIA 02-07-2016 [place] OF PHYSICIAN TEMPOROMAND PRACTICE L IBULAR JOINT R0683 SNORING 02-07-2016 [place] PHYSICIAN PRACTICE L Y54510 PAIN IN 01-19-2016 [place] RIGHT HIP MEDICAL IMAGING ASS Q53887 PAIN IN 01-19-2016 [place] LEFT HIP MEDICAL IMAGING ASS 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 01-19-2016 [place] VERTEBRAE MEDICAL IMAGING ASS M5135 OTH 01-19-2016 [place] 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 J0190 ACUTE 12-30-2015 [facility] SINUSITIS PHYSICIANS UNSPECIFIED GROUP R05 COUGH 12-30-2015 [facility] PHYSICIANS GROUP L87006 OTHER 10-24-2015 [facility] INFECTIVE [facility] OTITIS HOSPITAL EXTERNA UNSPECIFIED EAR Z5329 PROC & [place] 10-24-2015 [facility] NOT CARRIED [facility] OUT INC PATIENTS OT REASON K63606 ACUTE & 10-09-2015 [place] SUBACUTE [facility] OTITS MEDIA RIGHT EAR 7265 ENTHESOPATH 08-16-2015 [facility] Y OF HIP PHYSICIANS REGION GROUP 35264 NAUSEA 06-29-2015 [facility] ALONE PHYSICIANS GROUP 7873 FLATULENCE 06-29-2015 [facility] ERUCTATION PHYSICIANS AND GAS GROUP PAIN 88173 ABDOMINAL 06-29-2015 [facility] PAIN, PHYSICIANS EPIGASTRIC GROUP 7871 HEARTBURN 06-13-2015 [facility] PHYSICIANS GROUP 2449 UNSPECIFIED 06-12-2015 [facility] HYPOTHYROID INTERNAL ISM MED 4019 UNSPECIFIED 06-12-2015 [facility] ESSENTIAL [place] HYPERTENSIO INTERNAL N MED 59025 ESOPHAGEAL 06-12-2015 [facility] REFLUX [facility] INTERNAL MED 7248 OTHER 06-12-2015 [facility] SYMPTOMS [place] REFERABLE INTERNAL TO BACK MED 7336 TIETZES 05-25-2015 [facility] DISEASE PH[facility]ICIANS, [facility] 39057 CHEST PAIN 05-25-2015 [place] UNSPECIFIED MEDICAL IMAGING ASS 490 BRONCHITIS 05-08-2015 [facility] NOT [facility]LEY SPECIFIED INTERNAL ACUTE OR MED CHRONIC 7862 COUGH 05-08-2015 [facility] INTERNAL MED 17099 SPASM OF 03-16-2015 [facility] MUSCLE AMBULANCE SERVICE 7804 DIZZINESS 03-16-2015 [place] [employer] [facility] 78278 SHORTNESS 03-16-2015 [facility] OF BREATH AMBULANCE SERVICE 52362 OTHER CHEST 03-16-2015 [facility] PAIN [place] INTERNAL MED 4139 OTHER AND 01-30-2015 [place] UNSPECIFIED [facility] P [place] 82835 PAIN IN 01-30-2015 [place] JOINT, MEDICAL SHOULDER IMAGING ASS REGION 77826 PAIN IN 01-30-2015 [place] JOINT MEDICAL PELVIC IMAGING ASS REGION AND THIGH 7231 CERVICALGIA 01-30-2015 [place] [facility] 06047 CONTUSION 01-30-2015 [facility] P 84439 CONTUSION 01-30-2015 [facility] P 9592 INJURY 01-30-2015 [place] OTHER&UNSPE MEDICAL CIFIED IMAGING ASS SHOULDER&UP PER ARM 3899 UNSPECIFIED 01-04-2015 [facility] HEARING PHYSICIAN LOSS PRACTICE L 44762 UNSPECIFIED 12-13-2014 [facility]ACT[facility] L 4739 UNSPECIFIED 12-13-2014 [facility] SINUSITIS PHYSICIAN PRACTICE L 12973 UNSPECIFIED 12-13-2014 [facility] SLEEP PHYSICIAN APNEA PRACTICE L 26236 OTHER 12-13-2014 [facility] DYSPNEA AND PHYSICIAN PRACTICE L RESPIRATORY ABNORMALITI ES V7612 OTHER 12-06-2014 [place] SCREENING MEDICAL MAMMOGRAM IMAGING ASS 3814 NONSUPPRATV 11-28-2014 [facility] OTITIS VAL[facility] MEDIA NOT INTERNAL SPEC MED ACUT/CHRON 40179 ACUTE 11-07-2014 [facility] SEROUS [facility] OTITIS INTERNAL MEDIA MED 11468 UNSPECIFIED 08-30-2014 [facility] VIRAL [facility] INFECTION INTERNAL IN CCE & MED UNS SITE 83290 UNSPECIFIED 08-12-2014 [facility] ARTHROPATHY INTERNAL MULTIPLE MED SITES 7291 UNSPECIFIED 08-12-2014 [facility] MYALGIA VAL[facility] AND INTERNAL MYOSITIS MED 35055 OTHER 08-12-2014 [facility] MALAISE AND [facility] FATIGUE INTERNAL MED 72581 MEMORY LOSS 08-12-2014 [facility] INTERNAL MED 460 ACUTE 08-01-2014 [facility] NASOPHARYNG VALLEY ITIS INTERNAL MED 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 4720 CHRONIC 07-02-2014 [facility] RHINITIS [facility] INTERNAL MED 2392 NEOPLASMS 06-23-2014 NATALIYA SEKOU UNSPEC NATURE BONE SOFT TISSUE&SKIN Medications Na ND Rx Da Fi Fi Am Da Di Ph RX Ph St me C No te ll ll ou ys ag ar # ys at rm s nt no ma ic us Or Da si cy ia de te s n re d BI 29 10 11 30 30 00 RI Ac SO 30 -0 -0 .0 00 TE ti FL 00 8- 3- 00 01 ve OL [...] AM 00 09 10 20 10 00 CO Ac OX 78 -2 -2 .0 00 L- ti -C 11 2- 0- 00 07 MA ve LA 85 20 20 51 RT V 22 17 17 14 87 0 16 PH 5- AR 12 MA 5 CY MG #5 TA 91 BL ET AC 00 09 10 28 7 00 CO Ac YC 09 -1 -1 .0 00 L- ti LO 38 9- 3- 00 07 MA ve 94 20 20 51 RT R 70 17 17 05 80 1 64 PH 0 AR MG MA CY TA BL #5 ET 91 OM 60 09 10 30 30 00 [place] Ac EP 50 -1 -1 .0 00 L- ti RA 50 5- 3- 00 07 MA ve ZO 14 20 20 50 RT LE 60 17 [address] AR MA 40 CY MG #5 91 CA PS UL E CE 16 09 10 30 30 00 WA Ac TI 57 -1 -1 .0 00 L- ti RI 10 5- 3- 00 08 MA ve ZI 40 20 20 84 RT NE 25 17 17 05 0 02 PH HC AR L MA 10 CY MG #5 91 TA BL ET LE 00 09 10 30 30 00 WA Ac VO 78 -1 -1 .0 00 L- ti TH 15 5- 3- 00 07 MA ve YR 18 20 20 50 RT OX 49 17 17 98 IN 2 90 PH E AR 10 MA 0 CY MC G #5 TA 91 BL ET CE 00 09 10 30 30 00 CO Ac LE 59 -1 -1 .0 00 L- ti CO 13 5- 3- 00 07 MA ve XI 98 20 20 50 RT B 40 17 17 99 20 1 12 PH 0 AR MG MA CY CA PS #5 UL 91 E HY 00 09 10 [address] 40 -1 -1 .0 00 L- ti OC 60 4- 3- 00 02 MA ve OD 12 20 20 24 RT ON 30 17 17 19 -A 1 04 PH CE AR TA MA NM CY NO PH #5 EN 91 5- 32 5 DU 57 09 10 30 30 00 CO Ac LO 23 -1 -1 .0 00 L- ti XE 70 7- 3- 00 07 MA ve TI 01 20 20 50 RT NE 93 17 17 60 0 38 PH HC AR L MA DR CY 60 #5 91 MG CA P AL 00 09 10 1. 1 00 CO Ac FL 22 -1 -0 00 00 L- ti AZ 82 3- 6- 0 04 MA ve OL 03 20 20 53 RT AM 15 17 17 21 1 0 00 PH AR MG MA CY TA BL #5 ET 91 BI 29 09 10 30 30 00 [facility] SO 30 -0 -0 .0 00 TE ti FL 00 9- 6- 00 01 ve OL 18 20 20 19 AI OL 80 17 17 89 D -H [address] AR Z MA 5- CY 6. 25 #3 93 MG 8 TA B CE 68 09 09 14 7 00 CO Ac FD 18 -0 -2 .0 00 L- ti IN 00 1- 9- 00 07 MA ve IR 71 20 20 50 RT 16 17 17 71 30 0 85 PH 0 AR MG MA CY CA PS #5 UL 91 E OX 00 09 09 30 8 00 CO Ac YC 40 -0 -2 .0 00 L- ti OD 60 1- 9- 00 02 MA ve ON 52 20 20 24 RT -A 20 17 17 17 CE 1 49 PH TA AR NM MA NO CY PH EN #5 91 7. 5- 32 5 DU 57 08 09 30 30 00 CO Ac LO 23 -2 -2 .0 00 L- ti XE 70 5- 2- 00 07 MA ve TI 01 20 20 50 RT NE 93 17 17 60 0 38 PH HC AR L MA DR CY 60 #5 91 MG CA P LY 00 08 09 60 30 00 WA Ac RI 07 -2 -2 .0 00 L- ti CA 11 8- 2- 00 04 MA ve 01 20 20 53 RT 10 56 17 17 18 0 8 23 PH MG AR MA CA CY PS UL #5 E 91 LE 00 08 09 30 30 00 CO Ac VO 78 -2 -1 .0 00 L- ti TH 15 2- 5- 00 07 MA ve YR 18 20 20 50 RT OX 49 17 17 53 IN 2 27 PH E AR 10 MA 0 CY MC G #5 TA 91 BL ET DU 57 08 09 30 30 00 CO Ac LO 23 -0 -0 .0 00 L- ti XE 70 7- 1- 00 07 MA ve TI 01 20 20 50 RT NE 83 17 17 25 0 64 PH HC AR L MA DR CY 30 #5 91 MG CA P OM 60 07 08 30 30 00 CO Ac EP 50 -3 -2 .0 00 L- ti RA 50 1- 5- 00 07 MA ve ZO 14 20 20 50 RT LE 60 17 [address] AR MA 40 CY MG #5 91 CA PS UL E 64 07 08 8. 28 00 CO Ac T 38 -3 -2 00 00 L- ti D2 00 1- 5- 0 07 MA ve 73 20 20 43 RT 1. 70 17 17 94 25 6 37 PH AR MG MA CY (5 0, #5 00 91 0 UN IT ) CE 00 07 08 30 30 00 CO Ac LE 59 -3 -2 .0 00 L- ti CO 13 1- 5- 00 07 MA ve XI 98 20 20 48 RT B 40 17 17 13 20 1 41 PH 0 AR MG MA CY CA PS #5 UL 91 E GA 00 08 08 90 30 00 CO Ac BA 22 -0 -2 .0 00 L- ti PE 82 2- 5- 00 04 MA ve NT 63 20 20 53 RT IN 65 17 17 08 0 91 PH 60 AR 0 MA MG CY TA #5 BL 91 ET BI 29 08 08 30 30 00 CO Ac SO 30 -0 -2 .0 00 L- ti FL 00 2- 5- 00 07 MA ve OL 18 20 20 50 RT OL 81 17 17 13 -H [address] AR Z MA 5- CY 6. 25 #5 91 MG TA B CE 16 07 07 23 30 00 [place] Ac TI 57 -3 -2 .0 00 L- ti RI 10 1- 5- 00 08 MA ve ZI 40 20 20 84 RT NE 25 17 17 05 0 02 PH HC AR L MA 10 CY MG #5 91 TA BL ET GA 00 07 30 00 WA Ac BA 22 -0 -2 .0 00 L- ti PE 82 5- 8- 00 04 MA ve NT 63 20 20 53 RT IN 65 17 17 08 0 91 PH 60 AR 0 MA MG CY TA #5 BL 91 ET BI 00 04 30 30 30 00 WA Ac SO 37 -2 -2 .0 00 L- ti FL 80 8- 1- 00 07 MA ve OL 50 20 20 48 RT OL 30 17 17 30 -H [address] AR Z MA 5- CY 6. 25 #5 91 MG TA B CE 00 CO Ac LE 59 -2 -2 .0 00 L- ti CO 13 8- - 00 07 MA ve XI 98 20 20 48 RT B 40 17 17 13 20 1 41 PH 0 AR MG MA CY CA PS #5 UL 91 E DU 57 CO Ac LO 23 -2 -2 .0 00 L- ti XE 70 8- 1- 00 07 MA ve TI 01 20 20 48 RT NE 83 17 17 51 0 44 PH HC AR L MA DR CY 30 #5 91 MG CA P IB 68 06 30 00 CO Ac UP 64 -2 -2 .0 00 L- ti RO 50 8- 1- 00 07 MA ve FE 53 20 20 49 RT N 15 17 17 60 80 4 61 PH 0 AR MG MA CY TA BL #5 ET 91 OM 60 04 30 30 30 00 CO Ac EP 50 -2 -2 .0 00 L- ti RA 50 8- 1- 00 07 MA ve ZO 14 20 20 49 RT LE 60 17 17 [address] AR MA 40 CY MG #5 91 CA PS UL E LE 00 04 30 30 30 00 [place] Ac VO 78 -2 -2 .0 00 L- ti TH 15 8- 1- 00 07 MA ve YR 18 20 20 49 RT OX 49 17 17 16 IN 2 21 PH E AR 10 MA 0 CY MC G #5 TA 91 BL ET CE 16 04 30 30 30 00 CO Ac TI 57 -2 -2 .0 00 L- ti RI 10 8- 1- 00 08 MA ve ZI 40 20 20 83 RT NE 25 17 17 90 0 85 PH HC AR L MA 10 CY MG #5 91 TA BL ET 64 06 07 8. 28 00 [place] Ac T 38 -2 -2 00 00 L- ti D2 00 8- 1- 0 07 MA ve 73 20 20 43 RT 1. 70 17 17 94 25 6 37 PH AR MG MA CY (5 0, #5 00 91 0 UN IT ) GA 00 06 07 90 30 00 WA Ac BA 22 -0 -0 .0 00 L- ti PE 82 8- 7- 00 07 MA ve NT 63 20 20 48 RT IN 65 17 17 51 0 43 PH 60 AR 0 MA MG CY TA #5 BL 91 ET LE 00 06 06 30 30 00 CO Ac VO 78 -0 -3 .0 00 L- ti TH 15 5- 0- 00 07 MA ve YR 18 20 20 49 RT OX 49 17 17 16 IN 2 21 PH E AR 10 MA 0 CY MC G #5 TA 91 BL ET DU 57 06 30 30 00 CO Ac LO 23 -0 -3 .0 00 L- ti XE 70 4- 0- 00 07 MA ve TI 01 20 20 48 RT NE 83 17 17 51 0 44 PH HC AR L MA DR CY 30 #5 91 MG CA P CE 00 06 06 30 30 00 CO Ac LE 59 -0 -3 .0 00 L- ti CO 13 4- 0- 00 07 MA ve XI 98 20 20 48 RT B 40 17 17 13 20 1 41 PH 0 AR MG MA CY CA PS #5 UL 91 E BI 00 05 06 30 30 00 CO Ac SO 37 -2 -2 .0 00 L- ti FL 80 9- 3- 00 07 MA ve OL 50 20 20 48 RT OL 30 17 17 30 -H [address] AR Z MA 5- CY 6. 25 #5 91 MG TA B CE 16 05 06 30 30 00 CO Ac TI 57 -2 -2 .0 00 L- ti RI 10 9- 3- 00 08 MA ve ZI 40 20 20 83 RT NE 25 17 17 90 0 85 PH HC AR L MA 10 CY MG #5 91 TA BL ET CY 68 05 06 12 4 00 CO Ac CL 64 -3 -2 .0 00 L- ti OB 50 1- 3- 00 07 MA ve EN 51 20 20 49 RT ZA 89 17 17 07 FL 0 50 PH IN AR E MA 10 CY MG #5 91 TA BL ET IB 68 05 06 21 6 00 WA Ac UP 64 -3 -2 .0 00 L- ti RO 50 1- 3- 00 07 MA ve FE 53 20 20 49 RT N 15 17 17 07 80 4 51 PH 0 AR MG MA CY TA BL #5 ET 91 64 05 06 8. 28 00 [place] Ac T 38 -2 -2 00 00 L- ti D2 00 9- 3- 0 07 MA ve 73 20 20 43 RT 1. 70 17 17 94 25 6 37 PH AR MG MA CY (5 0, #5 00 91 0 UN IT ) OM 60 05 06 30 30 00 [place] Ac EP 50 -1 -1 .0 00 L- ti RA 50 8- 6- 00 07 MA ve ZO 14 20 20 48 RT LE 60 17 [address] AR MA 40 CY MG #5 91 CA PS UL E LE 00 04 05 30 30 00 CO Ac VO 78 -2 -2 .0 00 L- ti TH 15 9- 6- 00 07 MA ve YR 18 20 20 47 RT OX 49 17 17 25 IN 2 39 PH E AR 10 MA 0 CY MC G #5 TA 91 BL ET DU 57 04 05 30 30 00 CO Ac LO 23 -2 -2 .0 00 L- ti XE 70 9- 6- 00 07 MA ve TI 01 20 20 48 RT NE 83 17 17 51 0 44 PH HC AR L MA DR CY 30 #5 91 MG CA P 64 04 05 8. 28 00 CO Ac T 38 -2 -1 00 00 L- ti D2 00 2- 9- 0 07 MA ve 73 20 20 43 RT 1. 70 17 17 94 25 6 37 PH AR MG MA CY (5 0, #5 00 91 0 UN IT ) GA 00 04 05 90 30 00 WA Ac BA 22 -2 -1 .0 00 [...] CO CY D #3 TA BL ET OM 60 04 05 30 30 00 [place] Ac EP 50 -1 -1 .0 00 L- ti RA 50 7- 2- 00 07 MA ve ZO 14 20 20 41 RT LE 60 17 [address] AR MA 40 CY MG #5 91 CA PS UL E CE 00 04 05 30 30 00 CO Ac LE 59 -1 -1 .0 00 L- ti CO 13 7- 2- 00 07 MA ve XI 98 20 20 48 RT B 40 17 17 13 20 1 41 PH 0 AR MG MA CY CA PS #5 UL 91 E BI 00 04 05 30 30 00 CO Ac SO 37 -1 -1 .0 00 L- ti FL 80 8- 2- 00 07 MA ve OL 50 20 20 48 RT OL 30 17 17 30 -H [address] AR Z MA 5- CY 6. 25 #5 91 MG TA B CE 16 04 05 30 30 00 CO Ac TI 57 -1 -1 .0 00 L- ti RI 10 8- 2- 00 08 MA ve ZI 40 20 20 83 RT NE 25 17 17 90 0 85 PH HC AR L MA 10 CY MG #5 91 TA BL ET CE 00 03 04 30 30 00 CO Ac LE 59 -2 -2 .0 00 L- ti CO 13 5- 1- 00 07 MA ve XI 98 20 20 47 RT B 40 17 17 84 20 1 74 PH 0 AR MG MA CY CA PS #5 UL 91 E DU 57 03 04 30 30 00 CO Ac LO 23 -2 -2 .0 00 L- ti XE 70 5- 1- 00 07 MA ve TI 01 20 20 44 RT NE 83 17 17 27 0 64 PH HC AR L MA DR CY 30 #5 91 MG CA P GA 00 03 04 90 30 00 CO Ac BA 22 -2 -2 .0 00 L- ti PE 82 5- 1- 00 07 MA ve NT 63 20 20 47 RT IN 65 17 17 25 0 38 PH 60 AR 0 MA MG CY TA #5 BL 91 ET LE 00 03 04 30 30 00 CO Ac VO 78 -2 -2 .0 00 L- ti TH 15 5- 1- 00 07 MA ve YR 18 20 20 47 RT OX 49 17 17 25 IN 2 39 PH E AR 10 MA 0 CY MC G #5 TA 91 BL ET 64 03 04 8. 28 00 CO Ac T 38 -2 -2 00 00 [...] GA 00 02 03 90 30 00 CO Ac BA 22 -2 -2 .0 00 L- ti PE 82 3- 4- 00 07 MA ve NT 63 20 20 47 RT IN 65 17 17 25 0 38 PH 60 AR 0 MA MG CY TA #5 BL 91 ET LE 00 02 03 30 30 00 CO Ac VO 78 -2 -2 .0 00 L- ti TH 15 3- 4- 00 07 MA ve YR 18 20 20 47 RT OX 49 17 17 25 IN 2 39 PH E AR 10 MA 0 CY MC G #5 TA 91 BL ET BI 00 02 03 30 30 00 CO Ac SO 37 -2 -2 .0 00 L- ti FL 80 3- 4- 00 07 MA ve OL 50 20 20 46 RT OL 30 17 17 65 -H [address] AR Z MA 5- CY 6. 25 #5 91 MG TA B CE 00 02 03 30 30 00 CO Ac LE 59 -2 -2 .0 00 L- ti CO 13 3- 4- 00 07 MA ve XI 98 20 20 45 RT B 40 17 17 54 20 1 92 PH 0 AR MG MA CY CA PS #5 UL 91 E DU 57 02 03 30 30 00 CO Ac LO 23 -0 -0 .0 00 L- ti XE 70 7- 3- 00 07 MA ve TI 01 20 20 44 RT NE 83 17 17 27 0 64 PH HC AR L MA DR CY 30 #5 91 MG CA P OM 60 01 02 30 30 00 CO Ac EP 50 -3 -2 .0 00 [...] CE 16 01 02 30 30 00 [place] Ac TI 57 -2 -1 .0 00 L- ti RI 10 2- 7- 00 08 MA ve ZI 40 20 20 83 RT NE 25 17 17 71 0 60 PH HC AR L MA 10 CY MG #5 91 TA BL ET GA 00 01 02 90 30 00 CO Ac BA 22 -2 -1 .0 00 L- ti PE 82 2- 7- 00 07 MA ve NT 63 20 20 43 RT IN 65 17 17 44 0 52 PH 60 AR 0 MA MG CY TA #5 BL 91 ET BI 00 02 30 30 CO Ac SO 37 -2 -1 .0 00 L- ti FL 80 4- 7- 00 07 MA ve OL 50 20 20 46 RT OL 30 17 17 65 -H [address] AR Z MA 5- CY 6. 25 #5 91 MG TA B CE 00 02 30 30 00 CO Ac LE 59 -1 -1 .0 00 L- ti CO 13 6- 0- 00 07 MA ve XI 98 20 20 45 RT B 40 17 17 54 20 1 92 PH 0 AR MG MA CY CA PS #5 UL 91 E LE 00 02 30 30 00 CO Ac VO 78 -1 -1 .0 00 L- ti TH 15 4- 0- 00 07 MA ve YR 18 20 20 45 RT OX 49 17 17 01 IN 2 59 PH E AR 10 MA 0 CY MC G #5 TA 91 BL ET DU 57 01 02 30 30 00 CO Ac LO 23 -1 -1 .0 00 L- ti XE 70 4- 0- 00 07 MA ve TI 01 20 20 44 RT NE 83 17 17 27 0 64 PH HC AR L MA DR CY 30 #5 91 MG CA P 64 01 01 8. 28 00 CO Ac T 38 -0 -2 00 00 L- ti D2 00 2- 7- 0 07 MA ve 73 20 20 43 RT 1. 70 17 17 94 25 6 37 PH AR MG MA CY (5 0, #5 00 91 0 UN IT ) OM 60 01 01 30 30 00 WA Ac EP 50 -0 -2 .0 00 L- ti RA 50 2- 7- 00 07 MA ve ZO 14 20 20 41 RT LE 60 17 [address] AR MA 40 CY MG #5 91 CA PS UL E GA 00 12 01 90 30 00 WA Ac BA 22 -2 -2 .0 00 L- ti PE 82 3- 7- 00 07 MA ve NT 63 20 20 43 RT IN 65 16 17 44 0 52 PH 60 AR 0 MA MG CY TA #5 BL 91 ET AM 00 12 01 20 10 00 WA Ac OX 78 -1 -2 .0 00 L- ti -C 11 7- 0- 00 07 MA ve LA 85 20 20 45 RT V 22 16 17 91 87 0 80 PH 5- AR 12 MA 5 CY MG #5 TA 91 BL ET Encounters Encounter Start End Date Code Location Performer Type Date [facility] - 6 6 [facility] - 6 6 [facility] 6 6 [facility] - 6 6 [facility] 5 5 [facility] - 5 5 [facility] - 5 5 [facility] 5 5 [facility] - 5 5 [facility] - 5 5 [facility] - 4 4 [facility]
--- OUTSIDE RECORDS SUMMARY | 2017-10-18 21:30 | External Medical Summary Rpt | CCD ---
Author Author , TRACEY WEBB Address Unknown Phone [email or web address] Care Team Providers Care Medical Physiologist Name Role Phone KRYSTINA JUSTICE MD, PSC, Unavailable Unavailable KRYSTINA JUSTICE MD, PSC [facility] Unavailable Unavailable PRACTICE L, [facility] Un[facility] Unavailable SERVICE, [facility] & Unavailable Unavailable [facility], [facility] Unavailable Unavailable [facility] NATALIYA SEKOU, NATALIYA SEKOU Unavailable Unavailable NÚÑEZ, NÚÑEZ Unavailable Unavailable [facility] Unavailable Unavailable INC, [facility] Unavailable Unavailable [facility], [facility] Unavailable Unavailable [facility] P, [facility], [facility]available Unavailable [facility], [facility] [place] Unavailable Unavailable INTERNAL MED, [facility] Un[facility], Unavailable Unavailable PLL, [facility], [facility] Purpose Continuity of Care Document - 06-23-2014 through 2016 Problems Code Diagnosis DOS Provider Status J0100 ACUTE 08-15-2017 [facility] MAXILLARY [place] SINUSITIS INTERNAL UNSPECIFIED MED M797 FIBROMYALGI 08-01-2017 [facility] A [place] INTERNAL MED Z23 ENCOUNTER 08-01-2017 [facility] FOR [facility] IMMUNIZATIO INTERNAL N MED D259 LEIOMYOMA 07-22-2017 [facility] OF UTERUS PHYSICIANS UNSPECIFIED GROUP N8301 FOLLICULAR 07-22-2017 [facility] CYST OF YANG & RIGHT OVARY DUBILIER N8302 FOLLICULAR 07-22-2017 [facility] CYST OF YANG & LEFT OVARY DUBILIER N8311 CORPUS 07-22-2017 [facility] LUTEUM CYST YANG & OF RIGHT DUBILIER OVARY N838 OTH 07-22-2017 [facility] NONINFLAMM YANG & D/O OVARY DUBILIER FALLOP TUBE & BROAD LIG R102 PELVIC AND 07-22-2017 [facility] PERINEAL PHYSICIANS PAIN GROUP I10 ESSENTIAL 07-17-2017 [facility]ERT[facility]O [facility] N [id number] ENCOUNTER 07-17-2017 [facility] P AL CARIOVASCUL AR EXAM T78806 ENCOUNTER 07-17-2017 [facility] P AL RESPIRATORY EXAM E31218 ENCOUNTER 07-17-2017 [place] FOR OTHER MEDICAL PREPROCEDUR IMAGING ASS AL EXAMINATION M461 SACROILIITI 05-20-2017 Alin KNOTT MD, PSC ELSEWHERE CLASSIFIED M7062 TROCHANTERI 05-20-2017 Jodie KNOTT BURSITIS , PSC LEFT HIP N939 ABNORMAL 03-18-2017 [facility] ANEST[facility] OF VAGINAL [facility] BLEEDING UNSPECIFIED N950 POSTMENOPAU 03-18-2017 [facility] DONELL PHYSICIANS BLEEDING GROUP [id number] ENCOUNTER 03-14-2017 [facility] P AL LABORATORY EXAM J302 OTHER 02-18-2017 [facility] SEASONAL [facility] ALLERGIC INTERNAL RHINITIS MED D53132 UNSPECIFIED 02-18-2017 [facility] OVARIAN PHYSICIANS CYST RIGHT GROUP SIDE N938 OTHER SPEC 02-13-2017 [place] ABNORMAL MEDICAL UTERINE & IMAGING ASS VAGINAL BLEEDING Z1231 ENCOUNTER 02-13-2017 [place] SCREENING MEDICAL MAMMO MALIG IMAGING ASS NEOPLASM BREAST N951 MENOPAUSAL 02-04-2017 [facility] AND FEMALE PHYSICIANS CLIMACTERIC GROUP STATES [id number] ATYP SQ 02-04-2017 [facility] CELLS UNDET PHYSICIANS GROUP SIGNIFICANC E CYTOL SMER CERV H57977 ENCOUNTER 02-04-2017 [facility] AGRICULTURAL SALES REPRESENTATIVE EXAM PHYSICIANS GENERAL RTN GROUP W/ABNORMAL FIND Z1212 ENCOUNTER 02-04-2017 [facility] SCREENING PHYSICIANS MALIGNANT GROUP NEOPLASM RECTUM E039 HYPOTHYROID 12-16-2016 [facility] ISM [facility] UNSPECIFIED INTERNAL MED R002 PALPITATION 12-16-2016 [facility] S [facility] INTERNAL MED 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 R198 OTH SPEC SX 12-03-2016 [facility] & SIGNS PHYSICIANS INVLV THE GROUP DIGESTV SYS & ABD Z1211 ENCOUNTER 12-03-2016 [facility] SCREENING PHYSICIANS MALIGNANT GROUP NEOPLASM OF COLON H6692 OTITIS 11-09-2016 [facility] MEDIA PHYSICIANS UNSPECIFIED GROUP LEFT EAR J029 ACUTE 11-09-2016 [facility] PHARYNGITIS PHYSICIANS GROUP UNSPECIFIED J320 CHRONIC 11-09-2016 [facility] MAXILLARY PHYSICIANS SINUSITIS GROUP D126 BENIGN 10-31-2016 [facility] OF [facility] COLON UNSPECIFIED K635 POLYP OF 10-31-2016 [facility] COLON PHYSICIANS GROUP K644 RESIDUAL 10-31-2016 [facility] HEMORRHOIDA PHYSICIANS L SKIN TAGS GROUP K5900 CONSTIPATIO 08-27-2016 [facility] N PHYSICIANS UNSPECIFIED GROUP R1032 LEFT LOWER 08-27-2016 [facility] QUADRANT PHYSICIANS PAIN GROUP R109 UNSPECIFIED 08-24-2016 [facility] ABDOMINAL [facility] PAIN INTERNAL MED R739 HYPERGLYCEM 08-24-2016 [facility] IA [facility] UNSPECIFIED INTERNAL MED L75586 PRIMARY 08-23-2016 [place] OSTEOARTHRI MEDICAL TIS RIGHT IMAGING ASS SHOULDER W88618 PAIN IN 08-23-2016 [place] RIGHT MEDICAL SHOULDER IMAGING ASS U86523 PAIN IN 08-23-2016 [place] LEFT MEDICAL SHOULDER IMAGING ASS E669 OBESITY [...] ARTHROPATHY 07-24-2016 [facility] UNSPECIFIED INTERNAL MED M71634 DISEASES 07-24-2016 [facility] DIGESTIVE [facility] SYSTEM COMP INTERNAL MED 2ND TRI 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 D/O INC W/RADICULOP ATHY LUMB RGN M5126 OTH 06-24-2016 JOSE KNOTT MD, PSC RAL DISC DISPLACEMEN T LUMBAR RGN G8929 OTHER 06-05-2016 [facility] CHRONIC [facility] PAIN INTERNAL MED K529 NONINFECTIV 06-05-2016 [facility] E [facility] GASTROENTER INTERNAL ITIS & MED COLITIS UNS G99168 SPONDYLOSIS 05-21-2016 [place] W/O MEDICAL MYELOPATH/R IMAGING ASS ADICULOPATH Y LUMB RGN M4806 SPINAL 05-21-2016 [place] STENOSIS MEDICAL LUMBAR IMAGING ASS REGION M545 LOW BACK 05-21-2016 [place] PAIN MEDICAL IMAGING ASS M549 DORSALGIA 05-17-2016 [facility] UNSPECIFIED [facility]ANCE SERVICE R69215 MUSCLE 05-17-2016 [facility] BACK INC A22625 OTHER 05-17-2016 [facility] MUSCLE [facility]YS[facility]ANS, [facility] B9689 OT SPEC 05-02-2016 [facility] BACTERIAL [facility]LEY AGNT CAUSE INTERNAL DZ MED CLASSIFIED ELSW N760 ACUTE 05-02-2016 [facility] N898 OTHER 05-02-2016 [facility] SPECIFIED [facility] NONINFLAMMA TORY DISORDERS VAGINA N921 EXCESS & 05-02-2016 [facility] FREQUENT [facility] MENSTRUATIO INTERNAL N MED W/IRREGULAR CYCLE N941 DYSPAREUNIA 05-02-2016 [facility] [place] INTERNAL MED D58632 ENCOUNTER 05-02-2016 [facility] AGRICULTURAL SALES REPRESENTATIVE EXAM VALLEY GENERAL RTN INTERNAL W/O MED ABNORMAL FIND J020 STREPTOCOCC 03-31-2016 [facility] AL PHYSICIANS PHARYNGITIS GROUP M7061 TROCHANTERI 03-15-2016 Jodie KNOTT BURSITIS , PSC RIGHT HIP M791 MYALGIA 02-26-2016 KRYSTINA JUSTICE MD, PSC M4724 OTH 02-17-2016 [facility] SPONDYLOSIS W/RADICULOP ATHY THORACIC REGION L54360 SPONDYLOSIS 02-17-2016 NÚÑE[facility] W/O MYELOPATH/R ADICULOPATH SAC [...] PRACTICE L J069 ACUTE UPPER 02-07-2016 [facility] [place] RESPIRATORY INTERNAL INFECTION MED UNSPECIFIED M2662 ARTHRALGIA 02-07-2016 [place] OF PHYSICIAN TEMPOROMAND PRACTICE L IBULAR JOINT R0683 SNORING 02-07-2016 [place] PHYSICIAN PRACTICE L J52311 PAIN IN 01-19-2016 [place] RIGHT HIP MEDICAL IMAGING ASS P72609 PAIN IN 01-19-2016 [place] LEFT HIP MEDICAL IMAGING ASS 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 01-19-2016 [place] VERTEBRAE [facility]ICAL IMAGING ASS M5135 OTH 01-19-2016 [place] 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 J0190 ACUTE 12-30-2015 [facility] SINUSITIS PHYSICIANS UNSPECIFIED GROUP R05 COUGH 12-30-2015 [facility] PHYSICIANS GROUP D94558 OTHER 10-24-2015 [facility] INFECTIVE [facility] OTITIS HOSPITAL EXTERNA UNSPECIFIED EAR Z5329 PROC & [place] 10-24-2015 [facility] NOT CARRIED [facility] OUT INC PATIENTS OT REASON Z49609 ACUTE & 10-09-2015 [place] SUBACUTE [facility] OTITS MEDIA RIGHT EAR 7265 ENTHESOPATH 08-16-2015 [facility] Y OF HIP PHYSICIANS REGION GROUP 59634 NAUSEA 06-29-2015 [facility] ALONE PHYSICIANS GROUP 7873 FLATULENCE 06-29-2015 [facility] ERUCTATION PHYSICIANS AND GAS GROUP PAIN 99155 ABDOMINAL 06-29-2015 [facility] PAIN, PHYSICIANS EPIGASTRIC GROUP 7871 HEARTBURN 06-13-2015 [facility] PHYSICIANS GROUP 2449 UNSPECIFIED 06-12-2015 [facility] HYPOTHYROID INTERNAL ISM MED 4019 UNSPECIFIED 06-12-2015 [facility] ESSENTIAL [place] HYPERTENSIO INTERNAL N MED 23866 ESOPHAGEAL 06-12-2015 [facility] REFLUX [facility] INTERNAL MED 7248 OTHER 06-12-2015 [facility] SYMPTOMS [place] REFERABLE INTERNAL TO BACK MED 7336 TIETZES 05-25-2015 [facility] DISEASE PHYSICIANS, [facility] 59996 CHEST PAIN 05-25-2015 [place] UNSPECIFIED MEDICAL IMAGING ASS 490 BRONCHITIS 05-08-2015 [facility] NOT VALLEY SPECIFIED INTERNAL ACUTE OR MED CHRONIC 7862 COUGH 05-08-2015 [facility] INTERNAL MED 11113 SPASM OF 03-16-2015 [facility] MUSCLE AMBULANCE SERVICE 7804 DIZZINESS 03-16-2015 [facility] [email or web address] [facility] [address]75 SHORTNESS 03-16-2015 [facility] OF BREATH AMBULANCE SERVICE 19556 OTHER CHEST 03-16-2015 [facility] PAIN [place] INTERNAL MED 4139 OTHER AND 01-30-2015 [place] UNSPECIFIED [facility] P [place] 88009 PAIN IN 01-30-2015 [place] JOINT, MEDICAL SHOULDER IMAGING ASS REGION 11213 PAIN IN 01-30-2015 [place] JOINT MEDICAL PELVIC IMAGING ASS REGION AND THIGH 7231 CERVICALGIA 01-30-2015 [place] [facility] 07981 CONTUSION 01-30-2015 [facility] P 20600 CONTUSION 01-30-2015 [facility] P 9592 INJURY 01-30-2015 [place] OTHER&UNSPE MEDICAL CIFIED IMAGING ASS SHOULDER&UP PER ARM 3899 UNSPECIFIED 01-04-2015 [facility] HEARING PHYSICIAN LOSS PRACTICE L 05311 UNSPECIFIED 12-13-2014 [facility] TINNITUS PHYSICIAN PRACTICE L 4739 UNSPECIFIED 12-13-2014 [facility] SINUSITIS PHYSICIAN PRACTICE L 47403 UNSPECIFIED 12-13-2014 [facility] SLEEP PHYSICIAN APNEA PRACTICE L 21534 OTHER 12-13-2014 [facility] DYSPNEA AND PHYSICIAN PRACTICE L RESPIRATORY ABNORMALITI ES V7612 OTHER 12-06-2014 [place] SCREENING MEDICAL MAMMOGRAM IMAGING ASS 3814 NONSUPPRATV 11-28-2014 [facility] OTITIS VALLEY MEDIA NOT INTERNAL SPEC MED ACUT/CHRON 58616 ACUTE 11-07-2014 [facility] SEROUS [facility] OTITIS INTERNAL MEDIA MED 55952 UNSPECIFIED 08-30-2014 [facility] VIRAL [facility] INFECTION INTERNAL IN CCE & MED UNS SITE 58936 UNSPECIFIED 08-12-2014 [facility] ARTHROPATHY INTERNAL MULTIPLE MED SITES 7291 UNSPECIFIED 08-12-2014 [facility] MYALGIA VAL[facility] AND INTERNAL MYOSITIS MED 91374 OTHER 08-12-2014 [facility] MALAISE AND [facility] FATIGUE INTERNAL MED 43435 MEMORY LOSS 08-12-2014 [facility] INTERNAL MED 460 ACUTE 08-01-2014 [facility] NASOPHARYNG VALLEY ITIS INTERNAL MED 45365 CYSTS OF 07-29-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 4720 [...] 30 -0 -0 .0 00 TE ti VT 00 8- 3- 00 01 ve OL [...] AM 00 09 10 20 10 00 MD Ac OX 78 -2 -2 .0 00 L- ti -C 11 2- 0- 00 07 MA ve LA 85 20 20 51 RT V 22 17 17 14 87 0 16 PH 5- AR 12 MA 5 CY MG #5 TA 91 BL ET AC 00 09 10 28 7 00 MD Ac YC 09 -1 -1 .0 00 [...] CE 00 09 10 30 30 00 MD Ac LE 59 -1 -1 .0 00 L- ti CO 13 5- 3- 00 07 MA ve XI 98 20 20 50 RT B 40 17 17 99 20 1 12 PH 0 AR MG MA CY CA PS #5 UL 91 E HY 00 09 10 [address] 40 -1 -1 .0 00 L- ti OC 60 4- 3- 00 02 MA ve OD 12 20 20 24 RT ON 30 17 17 19 -A 1 04 PH CE AR TA MA PA CY NO PH #5 EN 91 5- 32 5 DU 57 09 10 30 30 00 MD Ac LO 23 -1 -1 .0 00 L- ti XE 70 7- 3- 00 07 MA ve TI 01 20 20 50 RT NE 93 17 17 60 0 38 PH HC AR L MA DR CY 60 #5 91 MG CA P AL 00 09 10 1. 1 00 MD Ac VT 22 -1 -0 00 00 L- ti AZ 82 3- 6- 0 04 MA ve OL 03 20 20 53 RT AM 15 17 17 21 1 0 00 PH AR MG MA CY TA BL #5 ET 91 BI 29 09 10 30 30 00 [facility] SO 30 -0 -0 .0 00 TE ti VT 00 9- 6- 00 01 ve OL 18 20 20 19 AI OL 80 17 17 89 D -H [address] AR Z MA 5- CY 6. 25 #3 93 MG 8 TA B CE 68 09 09 14 7 00 MD Ac FD 18 -0 -2 .0 00 L- ti IN 00 1- 9- 00 07 MA ve IR 71 20 20 50 RT 16 17 17 71 30 0 85 PH 0 AR MG MA CY CA PS #5 UL 91 E OX 00 09 09 30 8 00 MD Ac YC 40 -0 -2 .0 00 L- ti OD 60 1- 9- 00 02 MA ve ON 52 20 20 24 RT -A 20 17 17 17 CE 1 49 PH TA AR PA MA NO CY PH EN #5 91 7. 5- 32 5 DU 57 08 09 30 30 00 MD Ac LO 23 -2 -2 .0 00 [...] LE 00 08 09 30 30 00 MD Ac VO 78 -2 -1 .0 00 L- ti TH 15 2- 5- 00 07 MA ve YR 18 20 20 50 RT OX 49 17 17 53 IN 2 27 PH E AR 10 MA 0 CY MC G #5 TA 91 BL ET DU 57 08 09 30 30 00 MD Ac LO 23 -0 -0 .0 00 L- ti XE 70 7- 1- 00 07 MA ve TI 01 20 20 50 RT NE 83 17 17 25 0 64 PH HC AR L MA DR CY 30 #5 91 MG CA P OM 60 07 08 30 30 00 MD Ac EP 50 -3 -2 .0 00 L- ti RA 50 1- 5- 00 07 MA ve ZO 14 20 20 50 RT LE 60 17 [address] AR MA 40 CY MG #5 91 CA PS UL E 64 07 08 8. 28 00 MD Ac T 38 -3 -2 00 00 L- ti D2 00 1- 5- 0 07 MA ve 73 20 20 43 RT 1. 70 17 17 94 25 6 37 PH AR MG MA CY (5 0, #5 00 91 0 UN IT ) CE 00 07 08 30 30 00 MD Ac LE 59 -3 -2 .0 00 L- ti CO 13 1- 5- 00 07 MA ve XI 98 20 20 48 RT B 40 17 17 13 20 1 41 PH 0 AR MG MA CY CA PS #5 UL 91 E GA 00 08 08 90 30 00 MD Ac BA 22 -0 -2 .0 00 L- ti PE 82 2- 5- 00 04 MA ve NT 63 20 20 53 RT IN 65 17 17 08 0 91 PH 60 AR 0 MA MG CY TA #5 BL 91 ET BI 29 08 08 30 30 00 MD Ac SO 30 -0 -2 .0 00 L- ti VT 00 2- 5- 00 07 MA ve [...] 37 -2 -2 .0 00 L- ti VT 80 8- 1- 00 07 MA ve OL 50 20 20 48 RT OL 30 17 17 30 -H [address] AR Z MA 5- CY 6. 25 #5 91 MG TA B CE 00 MD Ac LE 59 -2 -2 .0 00 L- ti CO 13 8- - 00 07 MA ve XI 98 20 20 48 RT B 40 17 17 13 20 1 41 PH 0 AR MG MA CY CA PS #5 UL 91 E DU 57 MD Ac LO 23 -2 -2 .0 00 L- ti XE 70 8- 1- 00 07 MA ve TI 01 20 20 48 RT NE 83 17 17 51 0 44 PH HC AR L MA DR CY 30 #5 91 MG CA P IB 68 06 30 00 MD Ac UP 64 -2 -2 .0 00 L- ti RO 50 8- 1- 00 07 MA ve FE 53 20 20 49 RT N 15 17 17 60 80 4 61 PH 0 AR MG MA CY TA BL #5 ET 91 OM 60 04 30 30 30 00 MD Ac EP 50 -2 -2 .0 00 [...] CE 16 04 30 30 30 00 MD Ac TI 57 -2 -2 .0 00 [...] LE 00 06 06 30 30 00 MD Ac VO 78 -0 -3 .0 00 L- ti TH 15 5- 0- 00 07 MA ve YR 18 20 20 49 RT OX 49 17 17 16 IN 2 21 PH E AR 10 MA 0 CY MC G #5 TA 91 BL ET DU 57 06 30 30 00 MD Ac LO 23 -0 -3 .0 00 L- ti XE 70 4- 0- 00 07 MA ve TI 01 20 20 48 RT NE 83 17 17 51 0 44 PH HC AR L MA DR CY 30 #5 91 MG CA P CE 00 06 06 30 30 00 MD Ac LE 59 -0 -3 .0 00 L- ti CO 13 4- 0- 00 07 MA ve XI 98 20 20 48 RT B 40 17 17 13 20 1 41 PH 0 AR MG MA CY CA PS #5 UL 91 E BI 00 05 06 30 30 00 MD Ac SO 37 -2 -2 .0 00 L- ti VT 80 9- 3- 00 07 MA ve OL 50 20 20 48 RT OL 30 17 17 30 -H [address] AR Z MA 5- CY 6. 25 #5 91 MG TA B CE 16 05 06 30 30 00 MD Ac TI 57 -2 -2 .0 00 L- ti RI 10 9- 3- 00 08 MA ve ZI 40 20 20 83 RT NE 25 17 17 90 0 85 PH HC AR L MA 10 CY MG #5 91 TA BL ET CY 68 05 06 12 4 00 MD Ac CL 64 -3 -2 .0 00 L- ti OB 50 1- 3- 00 07 MA ve EN 51 20 20 49 RT ZA 89 17 17 07 VT 0 50 PH IN AR E MA [...] LE 00 04 05 30 30 00 MD Ac VO 78 -2 -2 .0 00 L- ti TH 15 9- 6- 00 07 MA ve YR 18 20 20 47 RT OX 49 17 17 25 IN 2 39 PH E AR 10 MA 0 CY MC G #5 TA 91 BL ET DU 57 04 05 30 30 00 MD Ac LO 23 -2 -2 .0 00 L- ti XE 70 9- 6- 00 07 MA ve TI 01 20 20 48 RT NE 83 17 17 51 0 44 PH HC AR L MA DR CY 30 #5 91 MG CA P 64 04 05 8. 28 00 MD Ac T 38 -2 -1 00 00 [...] CE 00 04 05 30 30 00 MD Ac LE 59 -1 -1 .0 00 L- ti CO 13 7- 2- 00 07 MA ve XI 98 20 20 48 RT B 40 17 17 13 20 1 41 PH 0 AR MG MA CY CA PS #5 UL 91 E BI 00 04 05 30 30 00 MD Ac SO 37 -1 -1 .0 00 L- ti VT 80 8- 2- 00 07 MA ve OL 50 20 20 48 RT OL 30 17 17 30 -H [address] AR Z MA 5- CY 6. 25 #5 91 MG TA B CE 16 04 05 30 30 00 MD Ac TI 57 -1 -1 .0 00 L- ti RI 10 8- 2- 00 08 MA ve ZI 40 20 20 83 RT NE 25 17 17 90 0 85 PH HC AR L MA 10 CY MG #5 91 TA BL ET CE 00 03 04 30 30 00 MD Ac LE 59 -2 -2 .0 00 L- ti CO 13 5- 1- 00 07 MA ve XI 98 20 20 47 RT B 40 17 17 84 20 1 74 PH 0 AR MG MA CY CA PS #5 UL 91 E DU 57 03 04 30 30 00 MD Ac LO 23 -2 -2 .0 00 L- ti XE 70 5- 1- 00 07 MA ve TI 01 20 20 44 RT NE 83 17 17 27 0 64 PH HC AR L MA DR CY 30 #5 91 MG CA P GA 00 03 04 90 30 00 MD Ac BA 22 -2 -2 .0 00 L- ti PE 82 5- 1- 00 07 MA ve NT 63 20 20 47 RT IN 65 17 17 25 0 38 PH 60 AR 0 MA MG CY TA #5 BL 91 ET LE 00 03 04 30 30 00 MD Ac VO 78 -2 -2 .0 00 L- ti TH 15 5- 1- 00 07 MA ve YR 18 20 20 47 RT OX 49 17 17 25 IN 2 39 PH E AR 10 MA 0 CY MC G #5 TA 91 BL ET 64 03 04 8. 28 00 MD Ac T 38 -2 -2 00 00 [...] GA 00 02 03 90 30 00 MD Ac BA 22 -2 -2 .0 00 L- ti PE 82 3- 4- 00 07 MA ve NT 63 20 20 47 RT IN 65 17 17 25 0 38 PH 60 AR 0 MA MG CY TA #5 BL 91 ET LE 00 02 03 30 30 00 MD Ac VO 78 -2 -2 .0 00 L- ti TH 15 3- 4- 00 07 MA ve YR 18 20 20 47 RT OX 49 17 17 25 IN 2 39 PH E AR 10 MA 0 CY MC G #5 TA 91 BL ET BI 00 02 03 30 30 00 MD Ac SO 37 -2 -2 .0 00 L- ti VT 80 3- 4- 00 07 MA ve OL 50 20 20 46 RT OL 30 17 17 65 -H [address] AR Z MA 5- CY 6. 25 #5 91 MG TA B CE 00 02 03 30 30 00 MD Ac LE 59 -2 -2 .0 00 L- ti CO 13 3- 4- 00 07 MA ve XI 98 20 20 45 RT B 40 17 17 54 20 1 92 PH 0 AR MG MA CY CA PS #5 UL 91 E DU 57 02 03 30 30 00 MD Ac LO 23 -0 -0 .0 00 L- ti XE 70 7- 3- 00 07 MA ve TI 01 20 20 44 RT NE 83 17 17 27 0 64 PH HC AR L MA DR CY 30 #5 91 MG CA P OM 60 01 02 30 30 00 MD Ac EP 50 -3 -2 .0 00 [...] GA 00 01 02 90 30 00 MD Ac BA 22 -2 -1 .0 00 L- ti PE 82 2- 7- 00 07 MA ve NT 63 20 20 43 RT IN 65 17 17 44 0 52 PH 60 AR 0 MA MG CY TA #5 BL 91 ET BI 00 02 30 30 MD Ac SO 37 -2 -1 .0 00 L- ti VT 80 4- 7- 00 07 MA ve OL 50 20 20 46 RT OL 30 17 17 65 -H [address] AR Z MA 5- CY 6. 25 #5 91 MG TA B CE 00 02 30 30 00 MD Ac LE 59 -1 -1 .0 00 L- ti CO 13 6- 0- 00 07 MA ve XI 98 20 20 45 RT B 40 17 17 54 20 1 92 PH 0 AR MG MA CY CA PS #5 UL 91 E LE 00 02 30 30 00 MD Ac VO 78 -1 -1 .0 00 L- ti TH 15 4- 0- 00 07 MA ve YR 18 20 20 45 RT OX 49 17 17 01 IN 2 59 PH E AR 10 MA 0 CY MC G #5 TA 91 BL ET DU 57 01 02 30 30 00 MD Ac LO 23 -1 -1 .0 00 L- ti XE 70 4- 0- 00 07 MA ve TI 01 20 20 44 RT NE 83 17 17 27 0 64 PH HC AR L MA DR CY 30 #5 91 MG CA P 64 01 01 8. 28 00 MD Ac T 38 -0 -2 00 00 [...] End Date Code Location Performer Type Date [facility] - 6 6 [facility] - 6 6 [facility] - 6 6 [facility] 5 5 [facility] - 5 5 [facility] - 5 5 [facility] 5 5 [facility] 5 5 [facility] - 5 5 [facility] 4 4 [facility]
--- OUTSIDE RECORDS SUMMARY | 2017-10-18 21:31 | External Medical Summary Rpt | CCD ---
Demographics Preferred Language Botswanan Marital Status Unknown Restoration Affiliation Unknown Race Unknown Ethnic Group Unknown Author Author , TRACEY WEBB Address Unknown Phone Immunization Unable to retrieve immunization data due to connection failure with Immunization Registry. Please try again later.
--- OUTSIDE RECORDS SUMMARY | 2017-10-18 21:31 | External Medical Summary Rpt | CCD ---
Demographics Preferred Language Turkish Marital Status Unknown Anglican Affiliation Unknown Race Unknown Ethnic Group Unknown Author Author , TRACEY WEBB Address Unknown Phone Immunization Unable to retrieve immunization data due to connection failure with Immunization Registry. Please try again later.
--- OUTSIDE RECORDS SUMMARY | 2017-10-18 21:32 | External Medical Summary Rpt ---
Author Author [employer], [employer] Organization [employer] Address Unknown Phone Unavailable Results Hemoglobin & Hematocrit panel in Blood Observa Value Referen Units Interpr Notes Date tion ce etation Range Hematocri 37.0 - % Normal No Jul 22 t [Volume 47.0 informati 2016 on in 10:50 AM Fraction] source of Blood data Hemoglobi 12.2 - g/dL Normal No Jul 22 n 16.2 informati 2016 [Mass/vol on in 10:50 AM ume] in source Blood data Urinalysis dipstick W Reflex Microscopic panel in Urine Observa Value Referen Units Interpr Notes Date ti ce etation Range COMMENTS TO ERP SPECIALIST: UA FROM [place]ED IN OR Collected by nurse? Y Hold specimen in OE? N Appeara CLEAR CLEAR No No No Jul 22 nce of informa informa informa 2016 Urine tion in tion in tion in 8:00 AM source source source data data data Bacteri TRACE O No No No Jul 22 a informa informa informa 2016 [Presen tion in tion in tion in 8:00 AM ce] in source source source Urine data data data sedimen t by Light microsc opy Bilirub NEGATIV NEG No No No Jul 22 in E informa informa informa 2016 [Presen tion in tion in tion in 8:00 AM ce] in source source source Urine data data data by Test strip Erythro NEGATIV NEG No No No Jul 22 cytes E informa informa informa 2016 [Presen tion in tion in tion in 8:00 AM ce] in source source source Urine data data data Color YELLOW YELLOW No No No Jul 22 of informa informa informa 2016 Urine tion in tion in tion in 8:00 AM source source source data data data Glucose NEG No No No Jul 22 [Mass/vol informati informati informati 2016 8:00 ume] in on in on in on in AM Urine by source source source Test data data data strip Ketones NEGATIV NEG mg/dL No No Jul 22 E informa informa 2016 [Presen tion in tion in 8:00 AM ce] in source source Urine data data by Automat ed test strip Mucus NEGATIV NEG No No No Jul 22 [Presen E informa informa informa 2016 ce] in tion in tion in tion in 8:00 AM Urine source source source sedimen data data data t by Light microsc opy Nitrite NEGATIV NEG No No No Jul 22 E informa informa informa 2016 [Presen tion in tion in tion in 8:00 AM ce] in source source source Urine data data data by Test strip pH of 5.0 - 8.5 No Normal No Jul 22 Urine informati informati 2017 8:00 on in on in AM source source data data Protein NEG mg/dL No No Jul 22 [Mass/vol informati informati 2016 8:00 ume] in on in on in AM Urine by source source Automated data data test strip Erythro NONE 0 rbc/hpf No No Jul 22 cytes informa informa 2016 [Presen tion in tion in 8:00 AM ce] in source source Urine data data sedimen t by Light microsc opy Specific 1.005 - No Normal No Jul 22 gravity 1.030 informati informati 2016 8:00 of Urine on in on in AM source source data data Epithel NONE 0 - 5 #/hpf No No Jul 22 ial informa informa 2016 cells.s tion in tion in 8:00 AM quamous source source data data [Presen ce] in Urine sedimen t by Microsc opy high power field Urobili 0.2 NEG E.U./dL No No Jul 22 nogen informa informa 2016 [Presen tion in tion in 8:00 AM ce] in source source Urine data data by Test strip Leukocyte O wbc/hpf No No Jul 22 s informati informati 2016 8:00 [#/volume on in on in AM ] in source source Urine data data Urinalysis dipstick W Reflex Microscopic panel in Urine Observa Value Referen Units Interpr Notes Date tion ce etation Range COMMENTS TO ERP SPECIALIST: UA FROM [place] [facility] IN OR Collected by nurse? Y Hold specimen in OE? N Appeara CLEAR CLEAR No No No Jul 22 nce of informa informa informa 2016 Urine tion in tion in tion in 8:00 AM source source source data data data Bilirub NEGATIV NEG No No No Jul 22 in E informa informa informa 2016 [Presen tion in tion in tion in 8:00 AM ce] in source source source Urine data data data by Test strip Erythro NEGATIV NEG No No No Jul 22 cytes E informa informa informa 2016 [Presen tion in tion in tion in 8:00 AM ce] in source source source Urine data data data Color YELLOW YELLOW No No No Jul 22 of informa informa informa 2016 Urine tion in tion in tion in 8:00 AM source source source data data data Glucose NEG No No No Jul 22 [Mass/vol informati informati informati 2016 8:00 ume] in on in on in on in AM Urine by source source source Test data data data strip Ketones NEGATIV NEG mg/dL No No Jul 22 E informa informa 2016 [Presen tion in tion in 8:00 AM ce] in source source Urine data data by Automat ed test strip Mucus NEGATIV NEG No No No Jul 22 [Presen E informa informa informa 2016 ce] in tion in tion in tion in 8:00 AM Urine source source source sedimen data data data t by Light microsc opy Nitrite NEGATIV NEG No No No Jul 22 E informa informa informa 2016 [Presen tion in tion in tion in 8:00 AM ce] in source source source Urine data data data by Test strip pH of 5.0 - 8.5 No Normal No Jul 22 Urine informati informati 2016 8:00 on in on in AM source source data data Protein NEG mg/dL No No Jul 22 [Mass/vol informati informati 2016 8:00 ume] in on in on in AM Urine by source source Automated data data test strip Specific 1.005 - No Normal No Jul 22 gravity 1.030 informati informati 2016 8:00 of Urine on in on in AM source source data data Urobili 0.2 NEG E.U./dL No No Jul 22 nogen informa informa 2016 [Presen tion in tion in 8:00 AM ce] in source source Urine data data by Test strip Comprehensive metabolic 2000 panel in Serum or Plasma Observa Value Referen Units Interpr Notes Date tion ce etation Range Albumin/G 1.1 - 1.8 No Low No Jul 22 lobulin informati informati 2016 7:08 [Mass on in on in AM ratio] in source source Serum or data data Plasma Albumin 3.4 - 5.0 gm/dL Normal No Jul 22 [Mass/vol informati 2016 7:08 ume] in on in AM Serum or source Plasma data Alkaline 46 - 116 U/L Normal No Jul 22 phosphata informati 2016 7:08 se on in AM [Enzymati source c data activity/ volume] in Serum or Plasma Bilirubin 0.2 - 1.0 mg/dL Normal No Jul 22 .total informati 2016 7:08 [Mass/vol on in AM ume] in source Serum or data Plasma Urea 7 - 18 mg/dL High No Jul 22 nitrogen informati 2016 7:08 [Mass/vol on in AM ume] in source Serum or data Plasma Calcium 8.5 - mg/dL Normal No Jul 22 [Mass/vol 10.1 informati 2016 7:08 ume] in on in AM Serum or source Plasma data Chloride 98 - 107 mmoL/L Normal No Jul 22 [Moles/vo informati 2016 7:08 lume] in on in AM Serum or source Plasma data Carbon 21.0 - mmoL/L Normal No Jul 22 dioxide, 32.0 informati 2017 7:08 total on in AM [Moles/vo source lume] in data Serum or Plasma Creatinin 0.55 - mg/dL Normal No Jul 22 e 1.02 informati 2016 7:08 [Mass/vol on in AM ume] in source Serum or data Plasma Estimated 59- ML/MIN No REFERENCE Jul 22 informati RANGE: 2017 7:08 glomerula on in >60 AM r source ML/MIN/1. filtratio data 73 SQUARE n rate METERSIf (GF this patient is -A merican, then multiply theresult by 1.210. Globulin 1.3 - 3.2 gm/dL High No Jul 22 [Mass/vol informati 2016 7:08 ume] in on in AM Serum source data Glucose 74 - 106 mg/dL High No Jul 22 [Mass/vol informati 2016 7:08 ume] in on in AM Serum or source Plasma data Potassium 3.5 - 5.1 mmoL/L Normal No Jul 22 informati 2016 7:08 [Moles/vo on in AM lume] in source Serum or data Plasma Sodium 136 - 145 mmoL/L Normal No Jul 22 [Moles/vo informati 2016 7:08 lume] in on in AM Serum or source Plasma data Aspartate 15 - 37 U/L Normal No Jul 22 informati 2016 7:08 aminotran on in AM sferase source [Enzymati data c activity/ volume] in Serum or Plasma Alanine 12 - 78 U/L Normal No Jul 22 aminotran informati 2016 7:08 sferase on in AM [Enzymati source c data activity/ volume] in Serum or Plasma Protein 6.4 - 8.2 gm/dL Normal No Jul 22 [Mass/vol informati 2016 7:08 ume] in on in AM Serum or source Plasma data Choriogonadotropin.beta subunit [Units] in 24 hour Urine Observa Value Referen Units Interpr Notes Date tion ce etation Range Choriogon NEG No No Darleen Jul 22 adotropin informati informati 2016 6:59 .beta on in on in AM subunit source source [Units] data data in 24 hour Urine Comprehensive metabolic 2000 panel in Serum or Plasma Observa Value Referen Units Interpr Notes Date tion ce etation Range Albumin/G 1.1 - 1.8 No Normal No Jul 17 lobulin informati informati 2017 3:13 [Mass on in on in PM ratio] in source source Serum or data data Plasma Albumin 3.4 - 5.0 gm/dL Normal No Jul 17 [Mass/vol informati 2017 3:13 ume] in on in PM Serum or source Plasma data Alkaline 46 - 116 U/L Normal No Jul 17 phosphata informati 2017 3:13 se on in PM [Enzymati source c data activity/ volume] in Serum or Plasma Bilirubin 0.2 - 1.0 mg/dL Normal No Jul 17 .total informati 2017 3:13 [Mass/vol on in PM ume] in source Serum or data Plasma Urea 7 - 18 mg/dL High No Jul 17 nitrogen informati 2017 3:13 [Mass/vol on in PM ume] in source Serum or data Plasma Calcium 8.5 - mg/dL Normal No Jul 17 [Mass/vol 10.1 informati 2017 3:13 ume] in on in PM Serum or source Plasma data Chloride 98 - 107 mmoL/L Normal No Jul 17 [Moles/vo informati 2016 3:13 lume] in on in PM Serum or source Plasma data Carbon 21.0 - mmoL/L Normal No Jul 17 dioxide, 32.0 informati 2016 3:13 total on in PM [Moles/vo source lume] in data Serum or Plasma Creatinin 0.55 - mg/dL Normal No Jul 17 e 1.02 informati 2016 3:13 [Mass/vol on in PM ume] in source Serum or data Plasma Estimated 59- ML/MIN No REFERENCE Jul 17 informati RANGE: 2017 3:13 glomerula on in >60 PM r source ML/MIN/1. filtratio data 73 SQUARE n rate METERSIf (GF this patient is -A merican, then multiply theresult by 1.210. Globulin 1.3 - 3.2 gm/dL High No Jul 17 [Mass/vol informati 2016 3:13 ume] in on in PM Serum source data Glucose 74 - 106 mg/dL High No Jul 17 [Mass/vol informati 2016 3:13 ume] in on in PM Serum or source Plasma data Potassium 3.5 - 5.1 mmoL/L Low No Jul 17 informati 2016 3:13 [Moles/vo on in PM lume] in source Serum or data Plasma Sodium 136 - 145 mmoL/L Normal No Jul 17 [Moles/vo informati 2016 3:13 lume] in on in PM Serum or source Plasma data Aspartate 15 - 37 U/L Normal No Jul 17 informati 2016 3:13 aminotran on in PM sferase source [Enzymati data c activity/ volume] in Serum or Plasma Alanine 12 - 78 U/L Normal No Jul 17 aminotran informati 2016 3:13 sferase on in PM [Enzymati source c data activity/ volume] in Serum or Plasma Protein 6.4 - 8.2 gm/dL Normal No Jul 17 [Mass/vol informati 2016 3:13 ume] in on in PM Serum or source Plasma data CBC W Auto Differential panel in Blood Observa Value Referen Units Interpr Notes Date tion ce etation Range Basophils 0 - 0.2 K/MM3 Normal No Jul 17 informati 2016 3:13 [#/volume on in PM ] in source Blood by data Automated count Basophils 0.1 - 2.0 % Normal No Jul 17 informati 2016 3:13 leukocyte on in PM s in source Blood by data Automated count Eosinophi 0.0 - 0.4 K/mm3 Normal No Jul 17 ls informati 2016 3:13 [#/volume on in PM ] in source Blood by data Automated count Eosinophi 0.1 - % Normal No Jul 17 ls/100 12.0 informati 2016 3:13 leukocyte on in PM s in source Blood by data Automated count Granulocy 1.8 - 7.8 K/mm3 Normal No Jul 17 kathryn informati 2016 3:13 [#/volume on in PM ] in source Blood by data Automated count Granulocy 37.0 - % Normal No Jul 17 kathryn/100 80.0 informati 2016 3:13 leukocyte on in PM s in source Blood by data Automated count Hematocri 37.0 - % Normal No Jul 17 t [Volume 47.0 informati 2016 3:13 on in PM Fraction] source of Blood data Hemoglobi 12.2 - g/dL No No Jul 17 n 16.2 informati informati 2016 3:13 [Mass/vol on in on in PM ume] in source source Blood data data Lymphocyt 0.7 - 4.5 K/mm3 Normal No Jul 17 es informati 2016 3:13 [#/volume on in PM ] in source Unspecifi data ed specimen by Automated count Lymphocyt 10 - 50.0 % Normal No Jul 17 es informati 2016 3:13 [#/volume on in PM ] in source Unspecifi data ed specimen by Automated count Erythrocy 27 - 31.2 pg Normal No Jul 17 te mean informati 2016 3:13 corpuscul on in PM ar source hemoglobi data n [Entitic mass] Erythrocy 31.8 - g/dl Normal No Jul 17 te mean 35.4 informati 2016 3:13 corpuscul on in PM ar source hemoglobi data n concentra tion [Mass/vol ume] by Automated count Erythrocy 82.2 - fl Normal No Jul 17 te mean 97.8 informati 2016 3:13 corpuscul on in PM ar volume source [Entitic data volume] by Automated count Monocytes 0.1 - 1.0 K/mm3 Normal No Jul 17 informati 2016 3:13 [#/volume on in PM ] in source Blood by data Automated count Monocytes 1.7 - 9.3 % Normal No Jul 17 /100 informati 2017 3:13 leukocyte on in PM s in source Blood by data Automated count Platelet 7.4 - fl Normal No Jul 17 mean 10.4 informati 2017 3:13 volume on in PM [Entitic source volume] data in Blood by Automated count Platelets 142 - 424 K/mm3 Normal No Jul 17 informati 2017 3:13 [#/volume on in PM ] in source Blood data Erythrocy 4.2 - 5.4 M/mm3 Normal No Jul 17 kathryn informati 2017 3:13 [#/volume on in PM ] in source Amniotic data fluid Erythrocy 11.5 - % Normal Jul 17 te 17.5 informati 2017 3:13 distribut on in PM ion width source [Entitic data volume] by Automated count Leukocyte 4.8 - K/MM3 Normal No Jul 17 s 10.8 informati 2017 3:13 [#/volume on in PM ] in source Blood data
--- OUTSIDE RECORDS SUMMARY | 2017-10-18 21:32 | External Medical Summary Rpt ---
[...] Date ti ce etation Range COMMENTS TO [employer]AXER: UA FROM [facility] PLACED IN OR Collected [...] Date tion ce etation Range COMMENTS TO [employer]: UA FROM [facility] [facility]ED IN OR Collected [...]
[2017-10-18 23:06] VITALS: BP 124/77
== END 2017-10-18 23:07 | disposition home or self-care (01) ==
LOC: ER 21:06
DX: M62.830 Muscle spasm of back (principal); I10 Essential (primary) hypertension; K21.9 Gastro-esophageal reflux disease without esophagitis; E03.9 Hypothyroidism, unspecified; F41.8 Other specified anxiety disorders
CPT/HCPCS: J2405

== ENCOUNTER 2017-10-22 17:24 | Emergency (ER) | payer MEDICAID ==
[~2017-10-22] VITALS: Ht 152.4 cm; Wt 81.6 kg
[~2017-10-22 17:24] MED LIST changes: +METHOCARBAMOL500 M1 PO; +PENICILLIN VK250 MG PO
[2017-10-22] MEDS ORDERED: ROBAXIN 500 MG500 MG PO (17:36)
[2017-10-22] MEDS ORDERED: MOBIC7.5 MG PO (17:36)
[2017-10-22] MEDS ORDERED: FLEXERIL10 MG PO (17:37)
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
--- OUTSIDE RECORDS SUMMARY | 2017-10-22 18:53 | External Medical Summary Rpt | CCD ---
Author Author , [facility] Organization [facility] Address Unknown Phone [email or web address] Team Providers Care C.O.D. Audit Clerk Name Role Phone KRYSTINA JUSTICE MD, PSC, [...] Unavailable Unavailable NÚÑEZ, NÚÑEZ Unavailable Unavailable [facility] Unavailable Unavailable [facility], [facility] Unavailable Unavailable [facility], [facility] Unavailable Unavailable [facility]PITAL P, [facility], [facility]available Unavailable [facility], [facility] Unavailable Unavailable [facility] Unavailable Unavailable INTERNAL MED, [facility] Unavailable [facility], Unavailable Unavailable [facility], [facility] Purpose Continuity of Care Document - 06-23-2014 through 2016 Problems Code Diagnosis DOS Provider Status M54.40 LUMBAGO 10-22-2017 WITH SCIATICA, UNSPECIFIED SIDE M54.5 LOW BACK 10-22-2017 PAIN R05 COUGH 10-22-2017 Z88.5 ALLERGY 10-22-2017 STATUS TO NARCOTIC AGENT STATUS J0100 ACUTE 08-15-2017 [facility] SINUSITIS INTERNAL UNSPECIFIED MED M797 FIBROMYALGI 08-01-2017 [facility] A [facility] INTERNAL MED Z23 ENCOUNTER 08-01-2017 [facility] FOR [facility] IMMUNIZATIO INTERNAL N MED D259 LEIOMYOMA 07-22-2017 [facility] UNSPECIFIED GROUP N8301 FOLLICULAR 07-22-2017 [facility] CYST OF YANG & RIGHT OVARY DUBILIER N8302 FOLLICULAR 07-22-2017 [facility] CYST OF YANG & LEFT OVARY DUBILIER N8311 CORPUS 07-22-2017 [facility] LUTEUM CYST YANG & OF RIGHT DUBILIER OVARY N838 OTH 07-22-2017 [facility] NONINFLAMM YANG & D/O OVARY DUBILIER FALLOP TUBE & BROAD LIG R102 PELVIC AND 07-22-2017 [facility] PERINEAL [facility] PAIN GROUP I10 ESSENTIAL 07-17-2017 [facility] N [id number] ENCOUNTER 07-17-2017 [facility] CARIOVASCUL AR EXAM U98020 ENCOUNTER 07-17-2017 [facility] RESPIRATORY EXAM G38395 ENCOUNTER 07-17-2017 [facility] FOR OTHER MEDICAL PREPROCEDUR IMAGING ASS AL EXAMINATION M461 SACROILIITI 05-20-2017 Alin KNOTT NOT , PSC ELSEWHERE CLASSIFIED M7062 TROCHANTERI 05-20-2017 Jodie KNOTT BURSITIS , PSC LEFT HIP N939 ABNORMAL 03-18-2017 [facility] & ANESTH OF VAGINAL THE BLUE BLEEDING UNSPECIFIED N950 POSTMENOPAU 03-18-2017 [facility] DONELL [facility] BLEEDING GROUP [id number] ENCOUNTER 03-14-2017 [facility] LABORATORY EXAM J302 OTHER 02-18-2017 [facility] SEASONAL [facility] ALLERGIC INTERNAL RHINITIS MED T56024 UNSPECIFIED 02-18-2017 [facility] OVARIAN PHYS[facility]IANS CYST RIGHT GROUP SIDE N938 OTHER SPEC 02-13-2017 [facility] ABNORMAL [facility] UTERINE & IMAGING ASS VAGINAL BLEEDING Z1231 ENCOUNTER 02-13-2017 [facility] MAMMO MALIG IMAGING ASS NEOPLASM BREAST N951 MENOPAUSAL 02-04-2017 [facility] CLIMACTERIC GROUP STATES [id number] ATYP SQ 02-04-2017 [facility] CELLS UNDET PHYSICIANS GROUP SIGNIFICANC E CYTOL SMER CERV B15023 ENCOUNTER 02-04-2017 [facility] PACS ADMINISTRATOR EXAM PHYSICIANS GENERAL RTN GROUP W/ABNORMAL FIND Z1212 ENCOUNTER 02-04-2017 [facility] SCREENING PHYSICIANS MALIGNANT GROUP NEOPLASM RECTUM E039 HYPOTHYROID 12-16-2016 [facility] ISM [facility] UNSPECIFIED INTERNAL MED R002 PALPITATION 12-16-2016 [facility] S [facility] INTERNAL MED 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 R198 OTH SPEC SX 12-03-2016 [facility] & SIGNS PHYSICIANS INVLV THE GROUP DIGESTV SYS & ABD Z1211 ENCOUNTER 12-03-2016 [facility] SCREENING PHYSICIANS MALIGNANT GROUP NEOPLASM OF COLON H6692 OTITIS 11-09-2016 [facility] MEDIA PHYSICIANS UNSPECIFIED GROUP LEFT EAR J029 ACUTE 11-09-2016 [facility] PHARYNGITIS PHYSICIANS GROUP UNSPECIFIED J320 CHRONIC 11-09-2016 [facility] MAXILLARY PHYSICIANS SINUSITIS GROUP D126 BENIGN 10-31-2016 [facility] COLON UNSPECIFIED K635 POLYP OF 10-31-2016 [facility] COLON PHYSICIANS GROUP K644 RESIDUAL 10-31-2016 [facility] HEMORRHOIDA PHYSICIANS L SKIN TAGS GROUP K5900 CONSTIPATIO 08-27-2016 [facility] N PHYSICIANS UNSPECIFIED GROUP R1032 LEFT LOWER 08-27-2016 [facility] QUADRANT PHYSICIANS PAIN GROUP R109 UNSPECIFIED 08-24-2016 [facility] ABDOMINAL [facility] PAIN INTERNAL MED R739 HYPERGLYCEM 08-24-2016 [facility] [place] [facility] UNSPECIFIED INTERNAL MED Q07297 PRIMARY 08-23-2016 [facility] OSTEOARTHRI [facility]ICAL TIS RIGHT IMAGING ASS SHOULDER V52609 PAIN IN 08-23-2016 [facility] RIGHT [facility]ICAL SHOULDER IMAGING ASS N59185 PAIN IN 08-23-2016 [facility] LEFT MEDICAL SHOULDER IMAGING ASS E669 OBESITY [...] ARTHROPATHY 07-24-2016 [facility] UNSPECIFIED INTERNAL MED Q19925 DISEASES 07-24-2016 [facility] DIGESTIVE [facility] SYSTEM COMP INTERNAL MED 2ND TRI 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 [facility] D/O INC W/RADICULOP ATHY LUMB RGN M5126 OTH 06-24-2016 JOSE KNOTT MD, PSC RAL DISC DISPLACEMEN T LUMBAR RGN G8929 OTHER 06-05-2016 [facility] CHRONIC [facility] PAIN INTERNAL MED K529 NONINFECTIV 06-05-2016 [facility] E [facility] GASTROENTER INTERNAL ITIS & MED COLITIS UNS D09669 SPONDYLOSIS 05-21-2016 [facility] W/O MEDICAL MYELOPATH/R IMAGING ASS ADICULOPATH Y LUMB RGN M4806 SPINAL 05-21-2016 [facility] STENOSIS MEDICAL LUMBAR IMAGING ASS REGION M545 LOW BACK 05-21-2016 [facility] PAIN [facility]ICAL [facility] ASS M549 DORSALGIA 05-17-2016 [facility] UNSPECIFIED AMBULANCE SERVICE P05956 MUSCLE 05-17-2016 [facility] SPASM OF [facility] BACK INC U17960 OTHER 05-17-2016 [facility], SP[facility] PLL[facility] B9689 OTH SPEC 05-02-2016 [facility] BACTERIAL [facility] AGNT CAUSE INTERNAL DZ MED CLASSIFIED ELSW N760 ACUTE 05-02-2016 [facility] N898 OTHER 05-02-2016 [facility] SPEC[facility]IED [facility] NONINFLAMMA TORY DISORDERS VAGINA N921 EXCESS & 05-02-2016 [facility] FREQUENT [facility] MENSTRUATIO INTERNAL N MED W/IRREGULAR CYCLE N941 DYSPAREUNIA 05-02-2016 [facility] INTERNAL MED W36176 ENCOUNTER 05-02-2016 [facility] PACS ADMINISTRATOR EXAM VALLEY GENERAL RTN INTERNAL W/O MED ABNORMAL FIND J020 STREPTOCOCC 03-31-2016 [facility] PHYSICIANS PHARYNGITIS GROUP M7061 TROCHANTERI 03-15-2016 Jodie KNOTT BURSITIS , PSC RIGHT HIP M791 MYALGIA 02-26-2016 KRYSTINA JUSTICE MD, PSC M4724 OT 02-17-2016 NÚÑEZ SPONDYLOSIS W/RADICULOP ATHY THORACIC REGION U19572 SPONDYLOSIS 02-17-2016 NÚÑEZ W/O MYELOPATH/R ADICULOPATH SAC & SC M9901 SEGMENTAL & 02-17-2016 NÚÑEZ SOMATIC DYSFUNCTION CERVICAL REGION M9902 SEGMENTAL & 02-17-2016 NÚÑEZ SOMATIC DYSFUNCTION THORACIC REGION M9903 SEGMENTAL & 02-17-2016 NÚÑEZ SOMATIC DYSFUNCTION OF LUMBAR REGION M9904 SEGMENTAL & 02-17-2016 NÚÑEZ SOMATIC DYSFUNCTION OF SACRAL REGION G4730 SLEEP APNEA 02-07-2016 [facility] PH[facility]ICIAN UNSPECIFIED PRACTICE L H903 SENSORINEUR 02-07-2016 [facility] PHYSICIAN LOSS PRACTICE L BILATERAL H9313 TINNITUS 02-07-2016 [facility] BILATERAL PHYSICIAN PRACTICE L J069 ACUTE UPPER 02-07-2016 [facility] RESPIRATORY INTERNAL INFECTION MED UNSPECIFIED M2662 ARTHRALGIA 02-07-2016 [facility] OF PHYSICIAN TEMPOROMAND PRACTICE L IBULAR JOINT R0683 SNORING 02-07-2016 [facility] PH[facility]IAN PRACTICE L Y62711 PAIN IN 01-19-2016 [facility] RIGHT HIP MEDICAL IMAGING ASS X70689 PAIN IN 01-19-2016 [facility] LEFT HIP MEDICAL IMAGING ASS 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 01-19-2016 [facility]TEB[facility]E [facility] M5135 OTH 01-19-2016 [facility] 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 J0190 ACUTE 12-30-2015 [facility] SINUSITIS PHYSICIANS UNSPECIFIED GROUP R05 COUGH 12-30-2015 [facility] V29360 OTHER 10-24-2015 [facility]ECTIVE [facility] OTITIS HOSPITAL EXTERNA UNSPECIFIED EAR Z5329 PROC & [place] 10-24-2015 [facility] NOT CARRIED [facility] OUT INC PATIENTS OT REASON K16644 ACUTE & 10-09-2015 [facility] OTITS MEDIA RIGHT EAR 7265 ENTHESOPATH 08-16-2015 [facility] Y OF HIP PHYSICIANS REGION GROUP 53190 NAUSEA 06-29-2015 [facility] ALONE PHYSICIANS GROUP 7873 FLATULENCE 06-29-2015 [facility] ERUCTATION PHYSICIANS AND GAS GROUP PAIN 73297 ABDOMINAL 06-29-2015 [facility] PAIN, PHYSICIANS EPIGASTRIC GROUP 7871 HEARTBURN 06-13-2015 [facility] 2449 UNSPECIFIED 06-12-2015 [facility] HYPOTHYROID INTERNAL ISM MED 4019 UNSPECIFIED 06-12-2015 [facility] ESSENTIAL [facility] HYPERTENSIO INTERNAL N MED 96237 ESOPHAGEAL 06-12-2015 [facility] REFLUX [facility] INTERNAL MED 7248 OTHER 06-12-2015 [facility] SYMPTOMS [facility] REFERABLE INTERNAL TO BACK MED 7336 TIETZES 05-25-2015 [facility] DISEASE PHYS[facility]ANS, [facility] 72420 CHEST PAIN 05-25-2015 [facility] UNSPECIFIED MEDICAL IMAGING ASS 490 BRONCHITIS 05-08-2015 [facility] NOT [facility]LEY SPECIFIED INTERNAL ACUTE OR MED CHRONIC 7862 COUGH 05-08-2015 [facility] INTERNAL MED 55738 SPASM OF 03-16-2015 [facility] MUSCLE AMBULANCE SERVICE 7804 DIZZINESS 03-16-2015 [facility] 82677 SHORTNESS 03-16-2015 [facility] OF BREATH AMBULANCE SERVICE 93360 OTHER CHEST 03-16-2015 [facility] PAIN [facility] INTERNAL MED 4139 OTHER AND 01-30-2015 [facility] UNSPECIFIED [facility] P [place] 09739 PAIN IN 01-30-2015 [facility] JOINT, MEDICAL SHOULDER IMAGING ASS REGION 75965 PAIN IN 01-30-2015 [facility] JOINT MEDICAL PELVIC IMAGING ASS REGION AND THIGH 7231 CERVICALGIA 01-30-2015 [facility] 80681 CONTUSION 01-30-2015 [facility] OF SHOULDER [facility] P 64671 CONTUSION 01-30-2015 [facility] HIP [facility] P 9592 INJURY 01-30-2015 [facility] OTHER&UNSPE MEDICAL CIFIED IMAGING ASS SHOULDER&UP PER ARM 3899 UNSPECIFIED 01-04-2015 [facility] HEARING PHYSICIAN LOSS PRACTICE L 45565 UNSPECIFIED 12-13-2014 [facility] TINNITUS PHYSICIAN PRACTICE L 4739 UNSPECIFIED 12-13-2014 [facility] SINUSITIS PHYSICIAN PRACTICE L 30154 UNSPECIFIED 12-13-2014 [facility] APNEA PRACTICE L 79208 OTHER 12-13-2014 [facility] DYSP[facility] PHYSICIAN PRACTICE L RESPIRATORY ABNORMALITI ES V7612 OTHER 12-06-2014 [facility] SCREENING MEDICAL MAMMOGRAM IMAGING ASS 3814 NONSUPPRATV 11-28-2014 [facility] OTITIS [facility] MEDIA NOT INTERNAL SPEC MED ACUT/CHRON 35774 ACUTE 11-07-2014 [facility] SEROUS [facility] OTITIS INTERNAL MEDIA MED 39388 UNSPECIFIED 08-30-2014 [facility] VIRAL [facility] INFECTION INTERNAL IN CCE & MED UNS SITE 00341 UNSPECIFIED 08-12-2014 [facility] ARTHROPATHY INTERNAL MULTIPLE MED SITES 7291 UNSPECIFIED 08-12-2014 [facility] MYALGIA VAL[facility] AND INTERNAL MYOSITIS MED 43261 OTHER 08-12-2014 [facility] MALAISE AND [facility] FATIGUE INTERNAL MED 94796 MEMORY LOSS 08-12-2014 [facility] INTERNAL MED 460 ACUTE 08-01-2014 [facility] NASOPHARYNG VALLEY ITIS INTERNAL MED 09494 CYSTS OF 07-29-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 4720 [...] 30 -0 -0 .0 00 TE ti AZ 00 8- 3- 00 01 ve OL [...] CY 60 #5 91 MG CA P AC 00 09 10 28 7 00 WA Ac YC 09 -1 -1 .0 00 [...] LE 00 09 10 30 30 00 MA Ac VO 78 -1 -1 .0 00 L- ti TH 15 5- 3- 00 07 MA ve YR 18 20 20 50 RT OX 49 17 17 98 IN 2 90 PH E AR 10 MA 0 CY MC G #5 TA 91 BL ET CE 00 09 10 30 30 00 MA Ac LE 59 -1 -1 .0 00 L- ti CO 13 5- 3- 00 07 MA ve XI 98 20 20 50 RT B 40 17 17 99 20 1 12 PH 0 AR MG MA CY CA PS #5 UL 91 E HY 00 09 10 [address] 40 -1 -1 .0 00 L- ti OC 60 4- 3- 00 02 MA ve OD 12 20 20 24 RT ON 30 17 17 19 -A 1 04 PH CE AR TA MA MN CY NO PH #5 EN 91 5- 32 5 BI 29 09 10 30 30 00 RI Ac SO 30 -0 -0 .0 00 TE ti AZ 00 9- 6- 00 01 ve OL 18 20 20 19 AI OL 80 17 17 89 D -H [address] AR Z MA 5- CY 6. 25 #3 93 MG 8 TA B AL 00 09 10 1. 1 00 WA Ac AZ 22 -1 -0 00 00 L- ti AZ 82 3- 6- 0 04 MA ve OL 03 20 20 53 RT AM 15 17 17 21 1 0 00 PH AR MG MA CY TA BL #5 ET 91 CE 68 09 09 14 7 00 MA Ac FD 18 -0 -2 .0 00 L- ti IN 00 1- 9- 00 07 MA ve IR 71 20 20 50 RT 16 17 17 71 30 0 85 PH 0 AR MG MA CY CA PS #5 UL 91 E OX 00 09 09 30 8 00 MA Ac YC 40 -0 -2 .0 00 L- ti OD 60 1- 9- 00 02 MA ve ON 52 20 20 24 RT -A 20 17 17 17 CE 1 49 PH TA AR MN MA NO CY PH EN #5 91 7. 5- 32 5 DU 57 08 09 30 30 00 MA Ac LO 23 -2 -2 .0 00 L- ti XE 70 5- 2- 00 07 MA ve TI 01 20 20 50 RT NE 93 17 17 60 0 38 PH HC AR L MA DR CY 60 #5 91 MG CA P LY 00 08 09 60 30 00 MA Ac RI 07 -2 -2 .0 00 L- ti CA 11 8- 2- 00 04 MA ve 01 20 20 53 RT 10 56 17 17 18 0 8 23 PH MG AR MA CA CY PS UL #5 E 91 LE 00 08 09 30 30 00 MA Ac VO 78 -2 -1 .0 00 L- ti TH 15 2- 5- 00 07 MA ve YR 18 20 20 50 RT OX 49 17 17 53 IN 2 27 PH E AR 10 MA 0 CY MC G #5 TA 91 BL ET DU 57 08 09 30 30 00 MA Ac LO 23 -0 -0 .0 00 L- ti XE 70 7- 1- 00 07 MA ve TI 01 20 20 50 RT NE 83 17 17 25 0 64 PH HC AR L MA DR CY 30 #5 91 MG CA P GA 00 08 08 90 30 00 MA Ac BA 22 -0 -2 .0 00 L- ti PE 82 2- 5- 00 04 MA ve NT 63 20 20 53 RT IN 65 17 17 08 0 91 PH 60 AR 0 MA MG CY TA #5 BL 91 ET 64 07 08 8. 28 00 WA Ac T 38 -3 -2 00 00 L- ti D2 00 1- 5- 0 07 MA ve 73 20 20 43 RT 1. 70 17 17 94 25 6 37 PH AR MG MA CY (5 0, #5 00 91 0 UN IT ) CE 00 07 08 30 30 00 WA Ac LE 59 -3 -2 .0 00 L- ti CO 13 1- 5- 00 07 MA ve XI 98 20 20 48 RT B 40 17 17 13 20 1 41 PH 0 AR MG MA CY CA PS #5 UL 91 E OM 60 07 08 30 30 00 WA Ac EP 50 -3 -2 .0 00 L- ti RA 50 1- 5- 00 07 MA ve ZO 14 20 20 50 RT LE 60 17 [address] AR MA 40 CY MG #5 91 CA PS UL E BI 29 08 08 30 30 00 WA Ac SO 30 -0 -2 .0 00 L- ti AZ 00 2- 5- 00 07 MA ve OL 18 20 20 50 RT OL 81 17 17 13 -H [address] AR Z MA 5- CY 6. 25 #5 91 MG TA B CE 16 07 08 30 30 00 WA Ac TI 57 -3 -2 .0 00 L- ti RI 10 1- 5- 00 08 MA ve ZI 40 20 20 84 RT NE 25 17 17 05 0 02 PH HC AR L MA 10 CY MG #5 91 TA BL ET GA 00 07 07 90 30 00 MA Ac BA 22 -0 -2 .0 00 L- ti PE 82 5- 8- 00 04 MA ve NT 63 20 20 53 RT IN 65 17 17 08 0 91 PH 60 AR 0 MA MG CY TA #5 BL 91 ET 64 06 07 8. 28 00 MA Ac T 38 -2 -2 00 00 L- ti D2 00 8- 1- 0 07 MA ve 73 20 20 43 RT 1. 70 17 17 94 25 6 37 PH AR MG MA CY (5 0, #5 00 91 0 UN IT ) BI 00 06 07 30 30 00 MA Ac SO 37 -2 -2 .0 00 L- ti AZ 80 8- 1- 00 07 MA ve [...] 91 MG CA P IB 68 06 90 30 00 WA Ac UP 64 -2 -2 .0 00 L- ti RO 50 8- 1- 00 07 MA ve FE 53 20 20 49 RT N 15 17 17 60 80 4 61 PH 0 AR MG MA CY TA BL #5 ET 91 CE 16 04 30 30 30 00 WA Ac TI 57 -2 -2 .0 00 L- ti RI 10 8- 1- 00 08 MA ve ZI 40 20 20 83 RT NE 25 17 17 90 0 85 PH HC AR L MA 10 CY MG #5 91 TA BL ET OM 60 04 30 30 30 00 MA Ac EP 50 -2 -2 .0 00 L- ti RA 50 8- 1- 00 07 MA ve ZO 14 20 20 49 RT LE 60 17 17 [address] AR MA 40 CY MG #5 91 CA PS UL E LE 00 00 MA Ac VO 78 -2 -2 .0 00 L- ti TH 15 8- 1- 00 07 MA ve YR 18 20 20 49 RT OX 49 17 17 16 IN 2 21 PH E AR 10 MA 0 CY MC G #5 TA 91 BL ET GA 00 04 30 90 30 00 MA Ac BA 22 -0 -0 .0 00 L- ti PE 82 8- 7- 00 07 MA ve NT 63 20 20 48 RT IN 65 17 17 51 0 43 PH 60 AR 0 MA MG CY TA #5 BL 91 ET CE 00 04 29 30 30 00 MA Ac LE 59 -0 -3 .0 00 L- ti CO 13 4- 0- 00 07 MA ve XI 98 20 20 48 RT B 40 17 17 13 20 1 41 PH 0 AR MG MA CY CA PS #5 UL 91 E LE 00 04 29 30 30 00 WA Ac VO 78 -0 -3 .0 00 L- ti TH 15 5- 0- 00 07 MA ve YR 18 20 20 49 RT OX 49 17 17 16 IN 2 21 PH E AR 10 MA 0 CY MC G #5 TA 91 BL ET DU 57 04 29 30 30 00 MA Ac LO 23 -0 -3 .0 00 L- ti XE 70 4- 0- 00 07 MA ve TI 01 20 20 48 RT NE 83 17 17 51 0 44 PH HC AR L MA DR CY 30 #5 91 MG CA P CE 16 05 30 30 00 WA Ac TI 57 -2 -2 .0 00 L- ti RI 10 9- 3- 00 08 MA ve ZI 40 20 20 83 RT NE 25 17 17 90 0 85 PH HC AR L MA 10 CY MG #5 91 TA BL ET CY 68 05 06 12 4 00 MA Ac CL 64 -3 -2 .0 00 L- ti OB 50 1- 3- 00 07 MA ve EN 51 20 20 49 RT ZA 89 17 17 07 AZ 0 50 PH IN AR E MA 10 CY MG #5 91 TA BL ET IB 68 05 06 21 6 00 MA Ac UP 64 -3 -2 .0 00 L- ti RO 50 1- 3- 00 07 MA ve FE 53 20 20 49 RT N 15 17 17 07 80 4 51 PH 0 AR MG MA CY TA BL #5 ET 91 64 05 06 8. 28 00 MA Ac T 38 -2 -2 00 00 L- ti D2 00 9- 3- 0 07 MA ve 73 20 20 43 RT 1. 70 17 17 94 25 6 37 PH AR MG MA CY (5 0, #5 00 91 0 UN IT ) BI 00 05 06 30 30 00 MA Ac SO 37 -2 -2 .0 00 L- ti AZ 80 9- 3- 00 07 MA ve OL 50 20 20 48 RT OL 30 17 17 30 -H [address] AR Z MA 5- CY 6. 25 #5 91 MG TA B OM 60 05 06 30 30 00 MA Ac EP 50 -1 -1 .0 00 L- ti RA 50 8- 6- 00 07 MA ve ZO 14 20 20 48 RT LE 60 17 [address] AR MA 40 CY MG #5 91 CA PS UL E LE 00 04 05 30 30 00 MA Ac VO 78 -2 -2 .0 00 L- ti TH 15 9- 6- 00 07 MA ve YR 18 20 20 47 RT OX 49 17 17 25 IN 2 39 PH E AR 10 MA 0 CY MC G #5 TA 91 BL ET DU 57 04 05 30 30 00 MA Ac LO 23 -2 -2 .0 00 L- ti XE 70 9- 6- 00 07 MA ve TI 01 20 20 48 RT NE 83 17 17 51 0 44 PH HC AR L MA DR CY 30 #5 91 MG CA P 64 04 05 8. 28 00 MA Ac T 38 -2 -1 00 00 [...] CO CY D #3 TA BL ET CE 16 04 05 30 30 00 WA Ac TI 57 -1 -1 .0 00 L- ti RI 10 8- 2- 00 08 MA ve ZI 40 20 20 83 RT NE 25 17 17 90 0 85 PH HC AR L MA 10 CY MG #5 91 TA BL ET OM 60 04 05 30 30 00 MA Ac EP 50 -1 -1 .0 00 L- ti RA 50 7- 2- 00 07 MA ve ZO 14 20 20 41 RT LE 60 17 [address] AR MA 40 CY MG #5 91 CA PS UL E CE 00 04 30 30 00 MA Ac LE 59 -1 -1 .0 00 L- ti CO 13 7- 2- 00 07 MA ve XI 98 20 20 48 RT B 40 17 17 13 20 1 41 PH 0 AR MG MA CY CA PS #5 UL 91 E BI 00 04 30 30 00 MA Ac SO 37 -1 -1 .0 00 L- ti AZ 80 8- 2- 00 07 MA ve OL 50 20 20 48 RT OL 30 17 17 30 -H [address] AR Z MA 5- CY 6. 25 #5 91 MG TA B CE 00 03 04 30 30 00 MA Ac LE 59 -2 -2 .0 00 L- ti CO 13 5- 1- 00 07 MA ve XI 98 20 20 47 RT B 40 17 17 84 20 1 74 PH 0 AR MG MA CY CA PS #5 UL 91 E DU 57 03 04 30 30 00 MA Ac LO 23 -2 -2 .0 00 L- ti XE 70 5- 1- 00 07 MA ve TI 01 20 20 44 RT NE 83 17 17 27 0 64 PH HC AR L MA DR CY 30 #5 91 MG CA P GA 00 03 04 90 30 00 MA Ac BA 22 -2 -2 .0 00 L- ti PE 82 5- 1- 00 07 MA ve NT 63 20 20 47 RT IN 65 17 17 25 0 38 PH 60 AR 0 MA MG CY TA #5 BL 91 ET LE 00 03 04 30 30 00 WA Ac VO 78 [...] OM 60 03 03 30 30 00 MA Ac EP 50 -0 -3 .0 00 L- ti RA 50 3- 1- 00 07 MA ve ZO 14 20 20 41 RT LE 60 17 [address] AR MA 40 CY MG #5 91 CA PS UL E CE 16 03 03 30 30 00 MA Ac TI 57 -0 -3 .0 00 [...] 37 -2 -2 .0 00 L- ti AZ 80 3- 4- 00 07 MA ve [...] OM 60 01 02 30 30 00 WA Ac EP 50 -3 -2 .0 00 [...] #5 00 91 0 UN IT ) BI 00 01 02 30 30 00 WA Ac SO 37 -2 -1 .0 00 L- ti AZ 80 4- 7- 00 07 MA ve OL 50 20 20 46 RT OL 30 17 17 65 -H [address] AR Z MA 5- CY 6. 25 #5 91 MG TA B CE 16 02 30 30 00 WA Ac TI 57 -2 -1 .0 00 L- ti RI 10 2- 7- 00 08 MA ve ZI 40 20 20 83 RT NE 25 17 17 71 0 60 PH HC AR L MA 10 CY MG #5 91 TA BL ET GA 00 01 02 90 30 00 WA Ac BA 22 -2 -1 .0 00 L- ti PE 82 2- 7- 00 07 MA ve NT 63 20 20 43 RT IN 65 17 17 44 0 52 PH 60 AR 0 MA MG CY TA #5 BL 91 ET CE 00 02 30 30 00 WA Ac LE 59 -1 -1 .0 00 L- ti CO 13 6- 0- 00 07 MA ve XI 98 20 20 45 RT B 40 17 17 54 20 1 92 PH 0 AR MG MA CY CA PS #5 UL 91 E LE 00 02 30 30 00 WA Ac VO 78 -1 -1 .0 00 L- ti TH 15 4- 0- 00 07 MA ve YR 18 20 20 45 RT OX 49 17 17 01 IN 2 59 PH E AR 10 MA 0 CY MC G #5 TA 91 BL ET DU 57 01 02 30 30 00 MA Ac LO 23 -1 -1 .0 00 L- ti XE 70 4- 0- 00 07 MA ve TI 01 20 20 44 RT NE 83 17 17 27 0 64 PH HC AR L MA DR CY 30 #5 91 MG CA P 64 01 01 8. 28 00 MA Ac T 38 -0 -2 00 00 L- ti D2 00 2- 7- 0 07 MA ve 73 20 20 43 RT 1. 70 17 17 94 25 6 37 PH AR MG MA CY (5 0, #5 00 91 0 UN IT ) GA 00 12 01 90 30 00 MA Ac BA 22 -2 -2 .0 00 L- ti PE 82 3- 7- 00 07 MA ve NT 63 20 20 43 RT IN 65 16 17 44 0 52 PH 60 AR 0 MA MG CY TA #5 BL 91 ET OM 60 01 30 30 00 MA Ac EP 50 -0 -2 .0 00 L- ti RA 50 2- 7- 00 07 MA ve ZO 14 20 20 41 RT LE 60 17 [address] AR MA 40 CY MG #5 91 CA PS UL E AM 00 12 01 20 10 00 MA Ac OX 78 -1 -2 .0 00 L- ti -C 11 7- 0- 00 07 MA ve LA 85 20 20 45 RT V 22 16 17 91 87 0 80 PH 5- AR 12 MA 5 CY MG #5 TA 91 BL ET Results Labs Lab Lab Date Result Refere Interp Status Commen Order Detail nces retati t Range on Urinalysis dipstick W Reflex Microscopic panel in Urine (07-22-2017 08:00) Bacteri TRACE O complet a 017 ed [Presen 08:00 ce] in Urine sedimen t by Light microsc opy Erythro NONE 0 complet cytes 017 ed [Presen 08:00 ce] in Urine sedimen t by Light microsc opy Epithel NONE 0#/hp complet ial 017 f - ed cells.s 08:00 5#/hp quamous f [Presen ce] in Urine sedimen t by Microsc opy high power field Urinalysis dipstick W Reflex Microscopic panel in Urine (07-22-2017 08:00) Appeara CLEAR CLEAR complet nce of 017 ed Urine 08:00 Bilirub NEGATIV NEG complet in 017 E ed [Presen 08:00 ce] in Urine by Test strip Erythro NEGATIV NEG complet cytes 017 E ed [Presen 08:00 ce] in Urine Color YELLOW YELLOW complet of 017 ed Urine 08:00 Ketones NEGATIV NEG complet 017 E ed [Presen 08:00 ce] in Urine by Automat ed test strip Mucus NEGATIV NEG complet [Presen 017 E ed ce] in 08:00 Urine sedimen t by Light microsc opy Nitrite NEGATIV NEG complet 017 E ed [Presen 08:00 ce] in Urine by Test strip Urobili 0.2 NEG complet nogen 017 ed [Presen 08:00 ce] in Urine by Test strip Encounters Encounter Start End Date Code Location Performer Type Date [facility] - 6 6 [facility] - 6 6 [facility]ASH[facility] - 6 6 [facility] - 6 6 [facility] - 5 5 [facility] - 5 5 [facility] - 5 5 [facility] - 5 5 [facility] KASHIF - 5 5 [facility] KASHIF [facility] 5 5 [facility] KASHIF [facility] 4 4 [facility]
--- OUTSIDE RECORDS SUMMARY | 2017-10-22 18:53 | External Medical Summary Rpt | CCD ---
Author Author , [facility] Organization [facility] Address Unknown Phone Care Team Providers Care Fish Housekeeper Name Role Phone KRYSTINA JUSTICE MD, PSC, Unavailable Unavailable KRYSTINA JUSTICE MD, PSC [facility] Unavailable Unavailable PRACTICE L, [facility] Unavailable SERVICE, [facility] & Unavailable Unavailable DUBILIER, [facility] Unavailable Unavailable [facility], [facility] NATALIYA SEKOU, NATALIYA SEKOU Unavailable Unavailable NÚÑEZ, NÚÑEZ Unavailable Unavailable [facility] Unavailable Unavailable INC, [facility] Unavailable Unavailable [facility], [facility] Unavailable [facility]available [facility]PITAL P, [facility], [facility]available Unavailable [facility], [facility] Unavailable Un[facility], [facility] Unavailable [facility]available INTERNAL MED, [facility] Un[facility], Unavailable Unavailable PLL[facility], [facility] Purpose Continuity of Care Document - 06-23-2014 through 2016 Problems Code Diagnosis DOS Provider Status M54.40 LUMBAGO 10-22-2017 WITH SCIATICA, UNSPECIFIED SIDE M54.5 LOW BACK 10-22-2017 PAIN R05 COUGH 10-22-2017 Z88.5 ALLERGY 10-22-2017 STATUS TO NARCOTIC AGENT STATUS J0100 ACUTE 08-15-2017 [facility] MAXILL[place] SINUSITIS INTERNAL UNSPECIFIED MED M797 FIBROMYALGI 08-01-2017 [facility] A [facility] INTERNAL MED Z23 ENCOUNTER 08-01-2017 [facility] FOR [facility] IMMUNIZATIO INTERNAL N MED D259 LEIOMYOMA 07-22-2017 [facility] UTERUS PHYSICIANS UNSPECIFIED GROUP N8301 FOLLICULAR 07-22-2017 [facility] CYST OF YANG & RIGHT OVARY DUBILIER N8302 FOLLICULAR 07-22-2017 [facility] CYST OF YANG & LEFT OVARY DUBILIER N8311 CORPUS 07-22-2017 [facility] LUTEUM CYST YANG & OF RIGHT DUBILIER OVARY N838 OTH 07-22-2017 [facility] NONINFLAMM YANG & D/O OVARY DUBILIER FALLOP TUBE & BROAD LIG R102 PELVIC AND 07-22-2017 [facility] PERINEAL PHYSICIANS PAIN GROUP I10 ESSENTIAL 07-17-2017 [facility]YPERTEN[facility]O [facility] N [id number] ENCOUNTER 07-17-2017 [facility] P AL CARIOVASCUL AR EXAM C58579 ENCOUNTER 07-17-2017 [facility] P AL RESPIRATORY EXAM W21683 ENCOUNTER 07-17-2017 [place] FOR OTHER MEDICAL PREPROCEDUR IMAGING ASS AL EXAMINATION M461 SACROILIITI 05-20-2017 Alin KNOTT NOT , PSC ELSEWHERE CLASSIFIED M7062 TROCHANTERI 05-20-2017 Jodie KNOTT BURSITIS , PSC LEFT HIP N939 ABNORMAL 03-18-2017 [facility] ANESTH OF VAGINAL [facility] BLEEDING UNSPECIFIED N950 POSTMENOPAU 03-18-2017 [facility] DONELL PHYSICIANS BLEEDING GROUP J68765 ENCOUNTER 03-14-2017 [facility] P AL LABORATORY EXAM J302 OTHER 02-18-2017 [facility] SEASONAL [facility] ALLERGIC INTERNAL RHINITIS MED F91957 UNSPECIFIED 02-18-2017 [facility] OVARIAN PHYSICIANS CYST RIGHT GROUP SIDE N938 OTHER SPEC 02-13-2017 [place] ABNORMAL MEDICAL UTERINE & IMAGING ASS VAGINAL BLEEDING Z1231 ENCOUNTER 02-13-2017 [place] SCREENING MEDICAL MAMMO MALIG IMAGING ASS NEOPLASM BREAST N951 MENOPAUSAL 02-04-2017 [facility] AND FEMALE PHYSICIANS CLIMACTERIC GROUP STATES X86963 ATYP SQ 02-04-2017 [facility] CELLS UNDET PHYSICIANS GROUP SIGNIFICANC E CYTOL SMER CERV E68927 ENCOUNTER 02-04-2017 [facility] 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 EXAM PHYSICIANS GENERAL RTN GROUP W/ABNORMAL FIND Z1212 ENCOUNTER 02-04-2017 [facility] SCREENING PHYSICIANS MALIGNANT GROUP NEOPLASM RECTUM E039 HYPOTHYROID 12-16-2016 [facility] ISM [facility] UNSPECIFIED INTERNAL MED R002 PALPITATION 12-16-2016 [facility] S [facility] INTERNAL MED 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 R198 OTH SPEC SX 12-03-2016 [facility] & SIGNS PHYSICIANS INVLV THE GROUP DIGESTV SYS & ABD Z1211 ENCOUNTER 12-03-2016 [facility] SCREENING PHYSICIANS MALIGNANT GROUP NEOPLASM OF COLON H6692 OTITIS 11-09-2016 [facility] MEDIA PHYSICIANS UNSPECIFIED GROUP LEFT EAR J029 ACUTE 11-09-2016 [facility] PHARYNGITIS PHYSICIANS GROUP UNSPECIFIED J320 CHRONIC 11-09-2016 [facility] MAXILLARY PHYSICIANS SINUSITIS GROUP D126 BENIGN 10-31-2016 [facility] COLON UNSPECIFIED K635 POLYP OF 10-31-2016 [facility] COLON PHYSICIANS GROUP K644 RESIDUAL 10-31-2016 [facility] HEMORRHOIDA PHYSICIANS L SKIN TAGS GROUP K5900 CONSTIPATIO 08-27-2016 [facility] N PHYSICIANS UNSPECIFIED GROUP R1032 LEFT LOWER 08-27-2016 [facility] QUADRANT PHYSICIANS PAIN GROUP R109 UNSPECIFIED 08-24-2016 [facility] ABDOMINAL [facility] PAIN INTERNAL MED R739 HYPERGLYCEM 08-24-2016 [facility] [place] [facility] UNSPECIFIED INTERNAL MED P25911 PRIMARY 08-23-2016 [place] OSTEOARTHRI MEDICAL TIS RIGHT IMAGING ASS SHOULDER E29535 PAIN IN 08-23-2016 [place] RIGHT MEDICAL SHOULDER IMAGING ASS Y31752 PAIN IN 08-23-2016 [place] LEFT MEDICAL SHOULDER IMAGING ASS E669 OBESITY [...] ARTHROPATHY 07-24-2016 [facility] UNSPECIFIED INTERNAL MED D59029 DISEASES 07-24-2016 [facility] DIGESTIVE [facility] SYSTEM COMP INTERNAL MED 2ND TRI 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 D/O INC W/RADICULOP ATHY LUMB RGN M5126 OTH 06-24-2016 JOSE KNOTT MD, PSC RAL DISC DISPLACEMEN T LUMBAR RGN G8929 OTHER 06-05-2016 [facility] CHRONIC [facility] PAIN INTERNAL MED K529 NONINFECTIV 06-05-2016 [facility] GASTROENTER INTERNAL ITIS & MED COLITIS UNS W54908 SPONDYLOSIS 05-21-2016 [place] W/O MEDICAL MYELOPATH/R IMAGING ASS ADICULOPATH Y LUMB RGN M4806 SPINAL 05-21-2016 [place] STENOSIS MEDICAL LUMBAR IMAGING ASS REGION M545 LOW BACK 05-21-2016 [place] PAIN MEDICAL IMAGING ASS M549 DORSALGIA 05-17-2016 [facility] UNSPECIFIED [facility]ANCE SERVICE [id number] MUSCLE 05-17-2016 [facility] OF [facility] BACK INC H01114 OTHER 05-17-2016 [facility] MUSCLE [facility], [facility] PLL[facility] B9689 OTH SPEC 05-02-2016 [facility] BACTERIAL [facility] AGNT CAUSE INTERNAL DZ MED CLASSIFIED ELSW N760 ACUTE 05-02-2016 [facility] N898 OTHER 05-02-2016 [facility] SPEC[facility]IED [facility] NONINFLAMMA TORY DISORDERS VAGINA N921 EXCESS & 05-02-2016 [facility] FREQUENT [facility] MENSTRUATIO INTERNAL N MED W/IRREGULAR CYCLE N941 DYSPAREUNIA 05-02-2016 [facility] INTERNAL MED X39666 ENCOUNTER 05-02-2016 [facility] CURING ROOM SUPERVISOR EXAM VALLEY GENERAL RTN INTERNAL W/O MED ABNORMAL FIND J020 STREPTOCOCC 03-31-2016 [facility] PHYSICIANS PHARYNGITIS GROUP M7061 TROCHANTERI 03-15-2016 Jodie KNOTT BURSITIS , PSC RIGHT HIP M791 MYALGIA 02-26-2016 KRYSTINA JUSTICE MD, PSC M4724 OT 02-17-2016 NÚÑEZ SPONDYLOSIS W/RADICULOP ATHY THORACIC REGION R80226 SPONDYLOSIS 02-17-2016 NÚÑEZ W/O MYELOPATH/R ADICULOPATH SAC [...] R0683 SNORING 02-07-2016 [facility] L O76229 PAIN IN 01-19-2016 [place] RIGHT HIP MEDICAL IMAGING ASS S09489 PAIN IN 01-19-2016 [place] LEFT HIP MEDICAL IMAGING ASS 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 01-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 [place] VERTEBRAE [facility]ICAL IMAGING ASS M5135 OTH 01-19-2016 [place] 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 J0190 ACUTE 12-30-2015 [facility] SINUSITIS PHYSICIANS UNSPECIFIED GROUP R05 COUGH 12-30-2015 [facility] PHYSICIANS GROUP Q23285 OTHER 10-24-2015 [facility] OTITIS HOSPITAL EXTERNA UNSPECIFIED EAR Z5329 PROC & [place] 10-24-2015 [facility] NOT CARRIED [facility] OUT INC PATIENTS OT REASON Y14952 ACUTE & 10-09-2015 [facility] OTITS MEDIA RIGHT EAR 7265 ENTHESOPATH 08-16-2015 [facility] Y OF HIP PHYSICIANS REGION GROUP 72262 NAUSEA 06-29-2015 [facility] ALONE PHYSICIANS GROUP 7873 FLATULENCE 06-29-2015 [facility] ERUCTATION PHYSICIANS AND GAS GROUP PAIN 33847 ABDOMINAL 06-29-2015 [facility] PAIN, PHYSICIANS EPIGASTRIC GROUP 7871 HEARTBURN 06-13-2015 [facility] PH[facility]ANS GROUP 2449 UNSPECIFIED 06-12-2015 [facility] HYPOTHYROID INTERNAL ISM MED 4019 UNSPECIFIED 06-12-2015 [facility] ESSENTIAL [place] HYPERTENSIO INTERNAL N MED 70068 ESOPHAGEAL 06-12-2015 [facility] REFLUX [place] INTERNAL MED 7248 OTHER 06-12-2015 [facility] SYMPTOMS [facility] REFERABLE INTERNAL TO BACK MED 7336 TIETZES 05-25-2015 [facility] DISEASE PHYSICIANS, [facility] 24548 CHEST PAIN 05-25-2015 [place] UNSPECIFIED MEDICAL IMAGING ASS 490 BRONCHITIS 05-08-2015 [facility] NOT [facility] SPECIFIED INTERNAL ACUTE OR MED CHRONIC 7862 COUGH 05-08-2015 [facility] [place] INTERNAL MED 81417 SPASM OF 03-16-2015 [facility] MUSCLE AMBULANCE SERVICE 7804 DIZZINESS 03-16-2015 [facility] CUB[facility], Inc[facility] 90672 SHORTNESS 03-16-2015 [facility] OF BREATH AMBULANCE SERVICE 69042 OTHER CHEST 03-16-2015 [facility] PAIN [place] INTERNAL MED 4139 OTHER AND 01-30-2015 [facility] UNSPECIFIED [facility] P PECT[facility]IS 80037 PAIN IN 01-30-2015 [place] JOINT, MEDICAL SHOULDER IMAGING ASS REGION 34892 PAIN IN 01-30-2015 [place] JOINT MEDICAL PELVIC IMAGING ASS REGION AND THIGH 7231 CERVICALGIA 01-30-2015 [place] [facility] 75095 CONTUSION 01-30-2015 [facility] OF SHOULDER [facility] P 84056 CONTUSION 01-30-2015 [facility] HIP [facility] P 9592 INJURY 01-30-2015 [place] OTHER&UNSPE MEDICAL CIFIED IMAGING ASS SHOULDER&UP PER ARM 3899 UNSPECIFIED 01-04-2015 [facility] LOSS PRACTICE L 85930 UNSPECIFIED 12-13-2014 [facility] TINNITUS PHYSICIAN PRACTICE L 4739 UNSPECIFIED 12-13-2014 [facility] SINUSITIS PHYSICIAN PRACTICE L 29725 UNSPECIFIED 12-13-2014 [facility] 09249 OTHER 12-13-2014 [facility] PRACT[facility] L RESPIRATORY ABNORMALITI ES V7612 OTHER 12-06-2014 [place] SCREENING MEDICAL MAMMOGRAM IMAGING ASS 3814 NONSUPPRATV 11-28-2014 [facility] OTITIS [facility] MEDIA NOT INTERNAL SPEC MED ACUT/CHRON 10109 ACUTE 11-07-2014 [facility] SEROUS [facility] OTITIS INTERNAL MEDIA MED 11951 UNSPECIFIED 08-30-2014 [facility] VIRAL [facility] INFECTION INTERNAL IN CCE & MED UNS SITE 45619 UNSPECIFIED 08-12-2014 [facility] ARTHROPATHY INTERNAL MULTIPLE MED SITES 7291 UNSPECIFIED 08-12-2014 [facility] MYALGIA [facility] AND INTERNAL MYOSITIS MED 08561 OTHER 08-12-2014 [facility] MALAISE AND [facility] FATIGUE INTERNAL MED 22832 MEMORY LOSS 08-12-2014 [facility] INTERNAL MED 460 ACUTE 08-01-2014 [facility] NASOPHARYNG [facility]LEY ITIS INTERNAL MED 26448 CYSTS OF 07-29-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 4720 [...] 30 -0 -0 .0 00 TE ti CA 00 8- 3- 00 01 ve OL [...] LE 00 09 10 30 30 00 DC Ac VO 78 -1 -1 .0 00 L- ti TH 15 5- 3- 00 07 MA ve YR 18 20 20 50 RT OX 49 17 17 98 IN 2 90 PH E AR 10 MA 0 CY MC G #5 TA 91 BL ET CE 00 09 10 30 30 00 DC Ac LE 59 -1 -1 .0 00 L- ti CO 13 5- 3- 00 07 MA ve XI 98 20 20 50 RT B 40 17 17 99 20 1 12 PH 0 AR MG MA CY CA PS #5 UL 91 E HY 00 09 10 [address] 40 -1 -1 .0 00 L- ti OC 60 4- 3- 00 02 MA ve OD 12 20 20 24 RT ON 30 17 17 19 -A 1 04 PH CE AR TA MA MA CY NO PH #5 EN 91 5- 32 5 BI 29 09 10 30 30 00 RI Ac SO 30 -0 -0 .0 00 TE ti CA 00 9- 6- 00 01 ve OL 18 20 20 19 AI OL 80 17 17 89 D -H [address] AR Z MA 5- CY 6. 25 #3 93 MG 8 TA B AL 00 09 10 1. 1 00 WA Ac CA 22 -1 -0 00 00 L- ti AZ 82 3- 6- 0 04 MA ve OL 03 20 20 53 RT AM 15 17 17 21 1 0 00 PH AR MG MA CY TA BL #5 ET 91 CE 68 09 09 14 7 00 DC Ac FD 18 -0 -2 .0 00 L- ti IN 00 1- 9- 00 07 MA ve IR 71 20 20 50 RT 16 17 17 71 30 0 85 PH 0 AR MG MA CY CA PS #5 UL 91 E OX 00 09 09 30 8 00 DC Ac YC 40 -0 -2 .0 00 L- ti OD 60 1- 9- 00 02 MA ve ON 52 20 20 24 RT -A 20 17 17 17 CE 1 49 PH TA AR MA MA NO CY PH EN #5 91 7. 5- 32 5 DU 57 08 09 30 30 00 DC Ac LO 23 -2 -2 .0 00 L- ti XE 70 5- 2- 00 07 MA ve TI 01 20 20 50 RT NE 93 17 17 60 0 38 PH HC AR L MA DR CY 60 #5 91 MG CA P LY 00 08 09 60 30 00 DC Ac RI 07 -2 -2 .0 00 L- ti CA 11 8- 2- 00 04 MA ve 01 20 20 53 RT 10 56 17 17 18 0 8 23 PH MG AR MA CA CY PS UL #5 E 91 LE 00 08 09 30 30 00 DC Ac VO 78 -2 -1 .0 00 L- ti TH 15 2- 5- 00 07 MA ve YR 18 20 20 50 RT OX 49 17 17 53 IN 2 27 PH E AR 10 MA 0 CY MC G #5 TA 91 BL ET DU 57 08 09 30 30 00 DC Ac LO 23 -0 -0 .0 00 L- ti XE 70 7- 1- 00 07 MA ve TI 01 20 20 50 RT NE 83 17 17 25 0 64 PH HC AR L MA DR CY 30 #5 91 MG CA P GA 00 08 08 90 30 00 DC Ac BA 22 -0 -2 .0 00 [...] 30 -0 -2 .0 00 L- ti CA 00 2- 5- 00 07 MA ve [...] GA 00 07 07 90 30 00 DC Ac BA 22 -0 -2 .0 00 L- ti PE 82 5- 8- 00 04 MA ve NT 63 20 20 53 RT IN 65 17 17 08 0 91 PH 60 AR 0 MA MG CY TA #5 BL 91 ET 64 06 07 8. 28 00 DC Ac T 38 -2 -2 00 00 L- ti D2 00 8- 1- 0 07 MA ve 73 20 20 43 RT 1. 70 17 17 94 25 6 37 PH AR MG MA CY (5 0, #5 00 91 0 UN IT ) BI 00 06 07 30 30 00 DC Ac SO 37 -2 -2 .0 00 L- ti CA 80 8- 1- 00 07 MA ve [...] OM 60 04 30 30 30 00 DC Ac EP 50 -2 -2 .0 00 L- ti RA 50 8- 1- 00 07 MA ve ZO 14 20 20 49 RT LE 60 17 [address] AR MA 40 CY MG #5 91 CA PS UL E LE 00 00 DC Ac VO 78 -2 -2 .0 00 L- ti TH 15 8- 1- 00 07 MA ve YR 18 20 20 49 RT OX 49 17 17 16 IN 2 21 PH E AR 10 MA 0 CY MC G #5 TA 91 BL ET GA 00 04 30 90 30 00 DC Ac BA 22 -0 -0 .0 00 L- ti PE 82 8- 7- 00 07 MA ve NT 63 20 20 48 RT IN 65 17 17 51 0 43 PH 60 AR 0 MA MG CY TA #5 BL 91 ET CE 00 04 29 30 30 00 DC Ac LE 59 -0 -3 .0 00 [...] DU 57 04 29 30 30 00 DC Ac LO 23 -0 -3 .0 00 [...] CY 68 05 06 12 4 00 DC Ac CL 64 -3 -2 .0 00 L- ti OB 50 1- 3- 00 07 MA ve EN 51 20 20 49 RT ZA 89 17 17 07 CA 0 50 PH IN AR E MA 10 CY MG #5 91 TA BL ET IB 68 05 06 21 6 00 DC Ac UP 64 -3 -2 .0 00 L- ti RO 50 1- 3- 00 07 MA ve FE 53 20 20 49 RT N 15 17 17 07 80 4 51 PH 0 AR MG MA CY TA BL #5 ET 91 64 05 06 8. 28 00 DC Ac T 38 -2 -2 00 00 L- ti D2 00 9- 3- 0 07 MA ve 73 20 20 43 RT 1. 70 17 17 94 25 6 37 PH AR MG MA CY (5 0, #5 00 91 0 UN IT ) BI 00 05 06 30 30 00 DC Ac SO 37 -2 -2 .0 00 L- ti CA 80 9- 3- 00 07 MA ve OL 50 20 20 48 RT OL 30 17 17 30 -H [address] AR Z MA 5- CY 6. 25 #5 91 MG TA B OM 60 05 06 30 30 00 DC Ac EP 50 -1 -1 .0 00 L- ti RA 50 8- 6- 00 07 MA ve ZO 14 20 20 48 RT LE 60 17 [address] AR MA 40 CY MG #5 91 CA PS UL E LE 00 04 05 30 30 00 DC Ac VO 78 -2 -2 .0 00 L- ti TH 15 9- 6- 00 07 MA ve YR 18 20 20 47 RT OX 49 17 17 25 IN 2 39 PH E AR 10 MA 0 CY MC G #5 TA 91 BL ET DU 57 04 05 30 30 00 DC Ac LO 23 -2 -2 .0 00 L- ti XE 70 9- 6- 00 07 MA ve TI 01 20 20 48 RT NE 83 17 17 51 0 44 PH HC AR L MA DR CY 30 #5 91 MG CA P 64 04 05 8. 28 00 DC Ac T 38 -2 -1 00 00 [...] OM 60 04 05 30 30 00 DC Ac EP 50 -1 -1 .0 00 L- ti RA 50 7- 2- 00 07 MA ve ZO 14 20 20 41 RT LE 60 17 [address] AR MA 40 CY MG #5 91 CA PS UL E CE 00 04 30 30 00 DC Ac LE 59 -1 -1 .0 00 L- ti CO 13 7- 2- 00 07 MA ve XI 98 20 20 48 RT B 40 17 17 13 20 1 41 PH 0 AR MG MA CY CA PS #5 UL 91 E BI 00 04 30 30 00 DC Ac SO 37 -1 -1 .0 00 L- ti CA 80 8- 2- 00 07 MA ve OL 50 20 20 48 RT OL 30 17 17 30 -H [address] AR Z MA 5- CY 6. 25 #5 91 MG TA B CE 00 03 04 30 30 00 DC Ac LE 59 -2 -2 .0 00 L- ti CO 13 5- 1- 00 07 MA ve XI 98 20 20 47 RT B 40 17 17 84 20 1 74 PH 0 AR MG MA CY CA PS #5 UL 91 E DU 57 03 04 30 30 00 DC Ac LO 23 -2 -2 .0 00 L- ti XE 70 5- 1- 00 07 MA ve TI 01 20 20 44 RT NE 83 17 17 27 0 64 PH HC AR L MA DR CY 30 #5 91 MG CA P GA 00 03 04 90 30 00 DC Ac BA 22 -2 -2 .0 00 [...] OM 60 03 03 30 30 00 DC Ac EP 50 -0 -3 .0 00 L- ti RA 50 3- 1- 00 07 MA ve ZO 14 20 20 41 RT LE 60 17 [address] AR MA 40 CY MG #5 91 CA PS UL E CE 16 03 03 30 30 00 DC Ac TI 57 -0 -3 .0 00 [...] 37 -2 -2 .0 00 L- ti CA 80 3- 4- 00 07 MA ve [...] 37 -2 -1 .0 00 L- ti CA 80 4- 7- 00 07 MA ve [...] DU 57 01 02 30 30 00 DC Ac LO 23 -1 -1 .0 00 L- ti XE 70 4- 0- 00 07 MA ve TI 01 20 20 44 RT NE 83 17 17 27 0 64 PH HC AR L MA DR CY 30 #5 91 MG CA P 64 01 01 8. 28 00 DC Ac T 38 -0 -2 00 00 L- ti D2 00 2- 7- 0 07 MA ve 73 20 20 43 RT 1. 70 17 17 94 25 6 37 PH AR MG MA CY (5 0, #5 00 91 0 UN IT ) GA 00 12 01 90 30 00 DC Ac BA 22 -2 -2 .0 00 L- ti PE 82 3- 7- 00 07 MA ve NT 63 20 20 43 RT IN 65 16 17 44 0 52 PH 60 AR 0 MA MG CY TA #5 BL 91 ET OM 60 01 30 30 00 DC Ac EP 50 -0 -2 .0 00 L- ti RA 50 2- 7- 00 07 MA ve ZO 14 20 20 41 RT LE 60 17 [address] AR MA 40 CY MG #5 91 CA PS UL E AM 00 12 01 20 10 00 DC Ac OX 78 -1 -2 .0 00 [...] End Date Code Location Performer Type Date [facility] - 6 6 [facility] OUTPATIEN [facility] 6 6 [facility] OUTPATI[facility] K[facility] - 6 6 [facility]PATI[facility] K[facility] - 6 6 [facility] - 5 5 [facility] - 5 5 [facility] - 5 5 [facility] KASHIF - 5 5 [facility] OUTPATIEN [facility] KASH[facility] - 5 5 [facility] OUTPATIEN [facility] KASH[facility] 5 5 [facility] OUTPATIEN [facility] KASHIF - 4 4 [facility] T
--- OUTSIDE RECORDS SUMMARY | 2017-10-22 18:57 | External Medical Summary Rpt | CCD ---
Author Author , TRACEY WEBB Address Unknown Phone [email or web address] Care Team Providers Care Insole Filler Name Role Phone KRYSTINA JUSTICE MD, PSC, [...] INC, [facility] Unavailable Unavailable HOSPITAL, [facility] Unavailable Unavailable HOSPITAL P, [facility], [facility]available Unavailable [facility] Un[facility] Un[facility] [place] Unavailable Unavailable INTERNAL MED, [facility] Un[facility], Unavailable Unavailable PLL, [facility], [facility] Purpose Continuity of Care Document - 06-23-2014 through 2016 Problems Code Diagnosis DOS Provider Status J0100 ACUTE 08-15-2017 [facility] [place] SINUSITIS INTERNAL UNSPECIFIED MED M797 FIBROMYALGI 08-01-2017 [facility] [place] INTERNAL MED Z23 ENCOUNTER 08-01-2017 [facility] FOR [facility] IMMUNIZATIO INTERNAL N MED D259 LEIOMYOMA 07-22-2017 [facility] OF UTERUS PHYSICIANS UNSPECIFIED GROUP N8301 FOLLICULAR 07-22-2017 [facility] CYST OF YANG & RIGHT OVARY DUBILIER N8302 FOLLICULAR 07-22-2017 [facility] CYST OF YANG & LEFT OVARY DUBILIER N8311 CORPUS 07-22-2017 [facility] LUTEUM CYST YANG & OF RIGHT DUBILIER OVARY N838 OTH 07-22-2017 [facility] NONINFLAMM YANG & D/O OVARY DUBILIER FALLOP TUBE & BROAD LIG R102 PELVIC AND 07-22-2017 [facility] PERINEAL PHYSICIANS PAIN GROUP I10 ESSENTIAL 07-17-2017 [facility] HYPERTENSIO IMAGING ASS N R59526 ENCOUNTER 07-17-2017 [facility] P AL CARIOVASCUL AR EXAM W12068 ENCOUNTER 07-17-2017 [facility] P AL RESPIRATORY EXAM J88081 ENCOUNTER 07-17-2017 [facility] FOR OTHER MEDICAL PREPROCEDUR IMAGING ASS AL EXAMINATION M461 SACROILIITI 05-20-2017 Alin KNOTT MD, PSC ELSEWHERE CLASSIFIED M7062 TROCHANTERI 05-20-2017 Jodie KNOTT BURSITIS , PSC LEFT HIP N939 ABNORMAL 03-18-2017 [facility] ANESTH OF VAGINAL THE BLUE BLEEDING UNSPECIFIED N950 POSTMENOPAU 03-18-2017 [facility] DONELL PHYSICIANS BLEEDING GROUP V39963 ENCOUNTER 03-14-2017 [facility] P AL LABORATORY EXAM J302 OTHER 02-18-2017 [facility] SEASONAL [facility] ALLERGIC INTERNAL RHINITIS MED W99308 UNSPECIFIED 02-18-2017 [facility] OVARIAN PHYSICIANS CYST RIGHT GROUP SIDE N938 OTHER SPEC 02-13-2017 [facility] ABNORMAL MEDICAL UTERINE & IMAGING ASS VAGINAL BLEEDING Z1231 ENCOUNTER 02-13-2017 [facility] SCREENING MEDICAL MAMMO MALIG IMAGING ASS NEOPLASM BREAST N951 MENOPAUSAL 02-04-2017 [facility] AND FEMALE PHYSICIANS CLIMACTERIC GROUP STATES M20711 ATYP SQ 02-04-2017 [facility] CELLS UNDET PHYSICIANS GROUP SIGNIFICANC E CYTOL SMER CERV B57213 ENCOUNTER 02-04-2017 [facility] SOUP MIXER EXAM PHYSICIANS GENERAL RTN GROUP W/ABNORMAL FIND Z1212 ENCOUNTER 02-04-2017 [facility] SCREENING PHYSICIANS MALIGNANT GROUP NEOPLASM RECTUM E039 HYPOTHYROID 12-16-2016 [facility] ISM [facility] UNSPECIFIED INTERNAL MED R002 PALPITATION 12-16-2016 [facility] S [facility] INTERNAL MED 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 R198 OTH SPEC SX 12-03-2016 [facility] & SIGNS PHYSICIANS INVLV THE GROUP DIGESTV SYS & ABD Z1211 ENCOUNTER 12-03-2016 [facility] SCREENING PHYSICIANS MALIGNANT GROUP NEOPLASM OF COLON H6692 OTITIS 11-09-2016 [facility] MEDIA PHYSICIANS UNSPECIFIED GROUP LEFT EAR J029 ACUTE 11-09-2016 [facility] PHARYNGITIS PHYSICIANS GROUP UNSPECIFIED J320 CHRONIC 11-09-2016 [facility] MAXILLARY PHYSICIANS SINUSITIS GROUP D126 BENIGN 10-31-2016 [facility] OF [facility] COLON UNSPECIFIED K635 POLYP OF 10-31-2016 [facility] COLON PHYSICIANS GROUP K644 RESIDUAL 10-31-2016 [facility] HEMORRHOIDA PHYSICIANS L SKIN TAGS GROUP K5900 CONSTIPATIO 08-27-2016 [facility] N PHYSICIANS UNSPECIFIED GROUP R1032 LEFT LOWER 08-27-2016 [facility] QUADRANT PHYSICIANS PAIN GROUP R109 UNSPECIFIED 08-24-2016 [facility] ABDOMINAL [facility] PAIN INTERNAL MED R739 HYPERGLYCEM 08-24-2016 [facility] IA [facility] UNSPECIFIED INTERNAL MED A33288 PRIMARY 08-23-2016 [facility] OSTEOARTHRI MEDICAL TIS RIGHT IMAGING ASS SHOULDER A53809 PAIN IN 08-23-2016 [facility] RIGHT MEDICAL SHOULDER IMAGING ASS S17930 PAIN IN 08-23-2016 [facility] LEFT MEDICAL SHOULDER IMAGING ASS E669 OBESITY [...] ARTHROPATHY 07-24-2016 [facility] UNSPECIFIED INTERNAL MED L21283 DISEASES 07-24-2016 [facility] DIGESTIVE [facility] SYSTEM COMP INTERNAL MED 2ND TRI 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 D/O INC W/RADICULOP ATHY LUMB RGN M5126 OTH 06-24-2016 JOSE KNOTT MD, PSC RAL DISC DISPLACEMEN T LUMBAR RGN G8929 OTHER 06-05-2016 [facility] CHRONIC [facility] PAIN INTERNAL MED K529 NONINFECTIV 06-05-2016 [facility] E [facility] GASTROENTER INTERNAL ITIS & MED COLITIS UNS Y48812 SPONDYLOSIS 05-21-2016 [facility] W/O MEDICAL MYELOPATH/R IMAGING ASS ADICULOPATH Y LUMB RGN M4806 SPINAL 05-21-2016 [facility] STENOSIS MEDICAL LUMBAR IMAGING ASS REGION M545 LOW BACK 05-21-2016 [facility] PAIN MEDICAL IMAGING ASS M549 DORSALGIA 05-17-2016 [facility] UNSPECIFIED AMBULANCE SERVICE G70740 MUSCLE 05-17-2016 [facility] BACK INC S81581 OTHER 05-17-2016 [facility] MUS[facility], [facility] B9689 OT SPEC 05-02-2016 [facility] BACTERIAL [facility] AGNT CAUSE INTERNAL DZ MED CLASSIFIED ELSW N760 ACUTE 05-02-2016 [facility] N898 OTHER 05-02-2016 [facility] SPEC[facility]IED [facility] NONINFLAMMA TORY DISORDERS VAGINA N921 EXCESS & 05-02-2016 [facility] FREQUENT [facility] MENSTRUATIO INTERNAL N MED W/IRREGULAR CYCLE N941 DYSPAREUNIA 05-02-2016 [facility] [place] INTERNAL MED B03024 ENCOUNTER 05-02-2016 [facility] SOUP MIXER EXAM VALLEY GENERAL RTN INTERNAL W/O MED ABNORMAL FIND J020 STREPTOCOCC 03-31-2016 [facility] AL PHYSICIANS PHARYNGITIS GROUP M7061 TROCHANTERI 03-15-2016 Jodie KNOTT BURSITIS , PSC RIGHT HIP M791 MYALGIA 02-26-2016 KRYSTINA JUSTICE MD, PSC M4724 OTH 02-17-2016 [facility] SPONDYLOSIS W/RADICULOP ATHY THORACIC REGION Q12755 SPONDYLOSIS 02-17-2016 [facility] W/O MYELOPATH/R ADICULOPATH SAC [...] PRACTICE L J069 ACUTE UPPER 02-07-2016 [facility] [place] RESPIRATORY INTERNAL INFECTION MED UNSPECIFIED M2662 ARTHRALGIA 02-07-2016 [place] OF PHYSICIAN TEMPOROMAND PRACTICE L IBULAR JOINT R0683 SNORING 02-07-2016 [facility] PH[facility]ICIAN PRACTICE L F39779 PAIN IN 01-19-2016 [facility] RIGHT HIP MEDICAL IMAGING ASS G05164 PAIN IN 01-19-2016 [facility] LEFT HIP MEDICAL IMAGING ASS 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 01-19-2016 [facility] VERTEBRAE [facility]ICAL IMAGING ASS M5135 OTH 01-19-2016 [facility] 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 J0190 ACUTE 12-30-2015 [facility] SINUSITIS PHYSICIANS UNSPECIFIED GROUP R05 COUGH 12-30-2015 [facility] PHYSICIANS GROUP L99027 OTHER 10-24-2015 [facility] OTITIS HOSPITAL EXTERNA UNSPECIFIED EAR Z5329 PROC & [place] 10-24-2015 [facility] NOT CARRIED [facility] OUT INC PATIENTS OT REASON J71110 ACUTE & 10-09-2015 [place] SUBACUTE [facility] OTITS MEDIA RIGHT EAR 7265 ENTHESOPATH 08-16-2015 [facility] Y OF HIP PHYSICIANS REGION GROUP 76512 NAUSEA 06-29-2015 [facility] ALONE PHYSICIANS GROUP 7873 FLATULENCE 06-29-2015 [facility] ERUCTATION PHYSICIANS AND GAS GROUP PAIN 85946 ABDOMINAL 06-29-2015 [facility] PAIN, PHYSICIANS EPIGASTRIC GROUP 7871 HEARTBURN 06-13-2015 [facility] PHYSICIANS GROUP 2449 UNSPECIFIED 06-12-2015 [facility] HYPOTHYROID INTERNAL ISM MED 4019 UNSPECIFIED 06-12-2015 [facility] ESSENTIAL [place] HYPERTENSIO INTERNAL N MED 22594 ESOPHAGEAL 06-12-2015 [facility] REFLUX [facility] INTERNAL MED 7248 OTHER 06-12-2015 [facility] SYMPTOMS [place] REFERABLE INTERNAL TO BACK MED 7336 TIETZES 05-25-2015 [facility] DISEASE PH[facility]IANS, [facility] 88081 CHEST PAIN 05-25-2015 [facility] UNSPECIFIED MEDICAL IMAGING ASS 490 BRONCHITIS 05-08-2015 [facility] NOT [facility]LEY SPECIFIED INTERNAL ACUTE OR MED CHRONIC 7862 COUGH 05-08-2015 [facility] INTERNAL MED 06196 SPASM OF 03-16-2015 [facility] MUSCLE AMBULANCE SERVICE 7804 DIZZINESS 03-16-2015 [facility] [employer] [facility] 98520 SHORTNESS 03-16-2015 [facility] OF BREATH AMBULANCE SERVICE 20686 OTHER CHEST 03-16-2015 [facility] PAIN [place] INTERNAL MED 4139 OTHER AND 01-30-2015 [place] UNSPECIFIED [facility] P [place] 74108 PAIN IN 01-30-2015 [facility] JOINT, MEDICAL SHOULDER IMAGING ASS REGION 16621 PAIN IN 01-30-2015 [facility] JOINT MEDICAL PELVIC IMAGING ASS REGION AND THIGH 7231 CERVICALGIA 01-30-2015 [facility] 97475 CONTUSION 01-30-2015 [facility] P 94716 CONTUSION 01-30-2015 [facility] P 9592 INJURY 01-30-2015 [facility] OTHER&UNSPE MEDICAL CIFIED IMAGING ASS SHOULDER&UP PER ARM 3899 UNSPECIFIED 01-04-2015 [facility] [place] HEARING PHYSICIAN LOSS PRACTICE L 23738 UNSPECIFIED 12-13-2014 [facility] TINNITUS PHYSICIAN PRACTICE L 4739 UNSPECIFIED 12-13-2014 [place] SINUSITIS PHYSICIAN PRACTICE L 15287 UNSPECIFIED 12-13-2014 [place] SLEEP PHYSICIAN APNEA PRACTICE L 80307 OTHER 12-13-2014 [facility] [place] DYSPNEA AND PHYSICIAN PRACTICE L RESPIRATORY ABNORMALITI ES V7612 OTHER 12-06-2014 [facility] SCREENING MEDICAL MAMMOGRAM IMAGING ASS 3814 NONSUPPRATV 11-28-2014 [facility] OTITIS [facility] MEDIA NOT INTERNAL SPEC MED ACUT/CHRON 75643 ACUTE 11-07-2014 [facility] SEROUS [facility] OTITIS INTERNAL MEDIA MED 76951 UNSPECIFIED 08-30-2014 [facility] VIRAL [facility] INFECTION INTERNAL IN CCE & MED UNS SITE 34260 UNSPECIFIED 08-12-2014 [facility] ARTHROPATHY INTERNAL MULTIPLE MED SITES 7291 UNSPECIFIED 08-12-2014 [facility] MYALGIA [facility] AND INTERNAL MYOSITIS MED 19461 OTHER 08-12-2014 [facility] MALAISE AND [facility] FATIGUE INTERNAL MED 60625 MEMORY LOSS 08-12-2014 [facility] INTERNAL MED 460 ACUTE 08-01-2014 [facility] NASOPHARYNG [facility]LEY ITIS INTERNAL MED 09055 CYSTS OF 07-29-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 4720 [...] 30 -0 -0 .0 00 TE ti IL 00 8- 3- 00 01 ve OL [...] AM 00 09 10 20 10 00 [place] Ac OX 78 -2 -2 .0 00 L- ti -C 11 2- 0- 00 07 MA ve LA 85 20 20 51 RT V 22 17 17 14 87 0 16 PH 5- AR 12 MA 5 CY MG #5 TA 91 BL ET AC 00 09 10 28 7 00 [place] Ac YC 09 -1 -1 .0 00 [...] CE 00 09 10 30 30 00 NJ Ac LE 59 -1 -1 .0 00 L- ti CO 13 5- 3- 00 07 MA ve XI 98 20 20 50 RT B 40 17 17 99 20 1 12 PH 0 AR MG MA CY CA PS #5 UL 91 E HY 00 09 10 [address] 40 -1 -1 .0 00 L- ti OC 60 4- 3- 00 02 MA ve OD 12 20 20 24 RT ON 30 17 17 19 -A 1 04 PH CE AR TA MA WV CY NO PH #5 EN 91 5- 32 5 DU 57 09 10 30 30 00 NJ Ac LO 23 -1 -1 .0 00 L- ti XE 70 7- 3- 00 07 MA ve TI 01 20 20 50 RT NE 93 17 17 60 0 38 PH HC AR L MA DR CY 60 #5 91 MG CA P AL 00 09 10 1. 1 00 NJ Ac IL 22 -1 -0 00 00 L- ti AZ 82 3- 6- 0 04 MA ve OL 03 20 20 53 RT AM 15 17 17 21 1 0 00 PH AR MG MA CY TA BL #5 ET 91 BI 29 09 10 30 30 00 [facility] SO 30 -0 -0 .0 00 TE ti IL 00 9- 6- 00 01 ve OL 18 20 20 19 AI OL 80 17 17 89 D -H [address] AR Z MA 5- CY 6. 25 #3 93 MG 8 TA B CE 68 09 09 14 7 00 NJ Ac FD 18 -0 -2 .0 00 L- ti IN 00 1- 9- 00 07 MA ve IR 71 20 20 50 RT 16 17 17 71 30 0 85 PH 0 AR MG MA CY CA PS #5 UL 91 E OX 00 09 09 30 8 00 NJ Ac YC 40 -0 -2 .0 00 L- ti OD 60 1- 9- 00 02 MA ve ON 52 20 20 24 RT -A 20 17 17 17 CE 1 49 PH TA AR WV MA NO CY PH EN #5 91 7. 5- 32 5 DU 57 08 09 30 30 00 NJ Ac LO 23 -2 -2 .0 00 [...] LE 00 08 09 30 30 00 [place] Ac VO 78 -2 -1 .0 00 L- ti TH 15 2- 5- 00 07 MA ve YR 18 20 20 50 RT OX 49 17 17 53 IN 2 27 PH E AR 10 MA 0 CY MC G #5 TA 91 BL ET DU 57 08 09 30 30 00 NJ Ac LO 23 -0 -0 .0 00 L- ti XE 70 7- 1- 00 07 MA ve TI 01 20 20 50 RT NE 83 17 17 25 0 64 PH HC AR L MA DR CY 30 #5 91 MG CA P OM 60 07 08 30 30 00 NJ Ac EP 50 -3 -2 .0 00 L- ti RA 50 1- 5- 00 07 MA ve ZO 14 20 20 50 RT LE 60 17 [address] AR MA 40 CY MG #5 91 CA PS UL E 64 07 08 8. 28 00 NJ Ac T 38 -3 -2 00 00 L- ti D2 00 1- 5- 0 07 MA ve 73 20 20 43 RT 1. 70 17 17 94 25 6 37 PH AR MG MA CY (5 0, #5 00 91 0 UN IT ) CE 00 07 08 30 30 00 NJ Ac LE 59 -3 -2 .0 00 L- ti CO 13 1- 5- 00 07 MA ve XI 98 20 20 48 RT B 40 17 17 13 20 1 41 PH 0 AR MG MA CY CA PS #5 UL 91 E GA 00 08 08 90 30 00 NJ Ac BA 22 -0 -2 .0 00 L- ti PE 82 2- 5- 00 04 MA ve NT 63 20 20 53 RT IN 65 17 17 08 0 91 PH 60 AR 0 MA MG CY TA #5 BL 91 ET BI 29 08 08 30 30 00 NJ Ac SO 30 -0 -2 .0 00 L- ti IL 00 2- 5- 00 07 MA ve [...] 37 -2 -2 .0 00 L- ti IL 80 8- 1- 00 07 MA ve OL 50 20 20 48 RT OL 30 17 17 30 -H [address] AR Z MA 5- CY 6. 25 #5 91 MG TA B CE 00 NJ Ac LE 59 -2 -2 .0 00 L- ti CO 13 8- - 00 07 MA ve XI 98 20 20 48 RT B 40 17 17 13 20 1 41 PH 0 AR MG MA CY CA PS #5 UL 91 E DU 57 NJ Ac LO 23 -2 -2 .0 00 L- ti XE 70 8- 1- 00 07 MA ve TI 01 20 20 48 RT NE 83 17 17 51 0 44 PH HC AR L MA DR CY 30 #5 91 MG CA P IB 68 06 30 00 NJ Ac UP 64 -2 -2 .0 00 L- ti RO 50 8- 1- 00 07 MA ve FE 53 20 20 49 RT N 15 17 17 60 80 4 61 PH 0 AR MG MA CY TA BL #5 ET 91 OM 60 04 30 30 30 00 NJ Ac EP 50 -2 -2 .0 00 [...] CE 16 04 30 30 30 00 NJ Ac TI 57 -2 -2 .0 00 [...] LE 00 06 06 30 30 00 NJ Ac VO 78 -0 -3 .0 00 L- ti TH 15 5- 0- 00 07 MA ve YR 18 20 20 49 RT OX 49 17 17 16 IN 2 21 PH E AR 10 MA 0 CY MC G #5 TA 91 BL ET DU 57 06 30 30 00 NJ Ac LO 23 -0 -3 .0 00 L- ti XE 70 4- 0- 00 07 MA ve TI 01 20 20 48 RT NE 83 17 17 51 0 44 PH HC AR L MA DR CY 30 #5 91 MG CA P CE 00 06 06 30 30 00 NJ Ac LE 59 -0 -3 .0 00 L- ti CO 13 4- 0- 00 07 MA ve XI 98 20 20 48 RT B 40 17 17 13 20 1 41 PH 0 AR MG MA CY CA PS #5 UL 91 E BI 00 05 06 30 30 00 NJ Ac SO 37 -2 -2 .0 00 L- ti IL 80 9- 3- 00 07 MA ve OL 50 20 20 48 RT OL 30 17 17 30 -H [address] AR Z MA 5- CY 6. 25 #5 91 MG TA B CE 16 05 06 30 30 00 NJ Ac TI 57 -2 -2 .0 00 L- ti RI 10 9- 3- 00 08 MA ve ZI 40 20 20 83 RT NE 25 17 17 90 0 85 PH HC AR L MA 10 CY MG #5 91 TA BL ET CY 68 05 06 12 4 00 NJ Ac CL 64 -3 -2 .0 00 L- ti OB 50 1- 3- 00 07 MA ve EN 51 20 20 49 RT ZA 89 17 17 07 IL 0 50 PH IN AR E MA [...] LE 00 04 05 30 30 00 NJ Ac VO 78 -2 -2 .0 00 L- ti TH 15 9- 6- 00 07 MA ve YR 18 20 20 47 RT OX 49 17 17 25 IN 2 39 PH E AR 10 MA 0 CY MC G #5 TA 91 BL ET DU 57 04 05 30 30 00 NJ Ac LO 23 -2 -2 .0 00 L- ti XE 70 9- 6- 00 07 MA ve TI 01 20 20 48 RT NE 83 17 17 51 0 44 PH HC AR L MA DR CY 30 #5 91 MG CA P 64 04 05 8. 28 00 NJ Ac T 38 -2 -1 00 00 [...] CE 00 04 05 30 30 00 NJ Ac LE 59 -1 -1 .0 00 L- ti CO 13 7- 2- 00 07 MA ve XI 98 20 20 48 RT B 40 17 17 13 20 1 41 PH 0 AR MG MA CY CA PS #5 UL 91 E BI 00 04 05 30 30 00 NJ Ac SO 37 -1 -1 .0 00 L- ti IL 80 8- 2- 00 07 MA ve OL 50 20 20 48 RT OL 30 17 17 30 -H [address] AR Z MA 5- CY 6. 25 #5 91 MG TA B CE 16 04 05 30 30 00 NJ Ac TI 57 -1 -1 .0 00 L- ti RI 10 8- 2- 00 08 MA ve ZI 40 20 20 83 RT NE 25 17 17 90 0 85 PH HC AR L MA 10 CY MG #5 91 TA BL ET CE 00 03 04 30 30 00 NJ Ac LE 59 -2 -2 .0 00 L- ti CO 13 5- 1- 00 07 MA ve XI 98 20 20 47 RT B 40 17 17 84 20 1 74 PH 0 AR MG MA CY CA PS #5 UL 91 E DU 57 03 04 30 30 00 NJ Ac LO 23 -2 -2 .0 00 L- ti XE 70 5- 1- 00 07 MA ve TI 01 20 20 44 RT NE 83 17 17 27 0 64 PH HC AR L MA DR CY 30 #5 91 MG CA P GA 00 03 04 90 30 00 NJ Ac BA 22 -2 -2 .0 00 L- ti PE 82 5- 1- 00 07 MA ve NT 63 20 20 47 RT IN 65 17 17 25 0 38 PH 60 AR 0 MA MG CY TA #5 BL 91 ET LE 00 03 04 30 30 00 NJ Ac VO 78 -2 -2 .0 00 L- ti TH 15 5- 1- 00 07 MA ve YR 18 20 20 47 RT OX 49 17 17 25 IN 2 39 PH E AR 10 MA 0 CY MC G #5 TA 91 BL ET 64 03 04 8. 28 00 NJ Ac T 38 -2 -2 00 00 [...] GA 00 02 03 90 30 00 NJ Ac BA 22 -2 -2 .0 00 L- ti PE 82 3- 4- 00 07 MA ve NT 63 20 20 47 RT IN 65 17 17 25 0 38 PH 60 AR 0 MA MG CY TA #5 BL 91 ET LE 00 02 03 30 30 00 NJ Ac VO 78 -2 -2 .0 00 L- ti TH 15 3- 4- 00 07 MA ve YR 18 20 20 47 RT OX 49 17 17 25 IN 2 39 PH E AR 10 MA 0 CY MC G #5 TA 91 BL ET BI 00 02 03 30 30 00 NJ Ac SO 37 -2 -2 .0 00 L- ti IL 80 3- 4- 00 07 MA ve OL 50 20 20 46 RT OL 30 17 17 65 -H [address] AR Z MA 5- CY 6. 25 #5 91 MG TA B CE 00 02 03 30 30 00 NJ Ac LE 59 -2 -2 .0 00 L- ti CO 13 3- 4- 00 07 MA ve XI 98 20 20 45 RT B 40 17 17 54 20 1 92 PH 0 AR MG MA CY CA PS #5 UL 91 E DU 57 02 03 30 30 00 NJ Ac LO 23 -0 -0 .0 00 L- ti XE 70 7- 3- 00 07 MA ve TI 01 20 20 44 RT NE 83 17 17 27 0 64 PH HC AR L MA DR CY 30 #5 91 MG CA P OM 60 01 02 30 30 00 NJ Ac EP 50 -3 -2 .0 00 [...] GA 00 01 02 90 30 00 NJ Ac BA 22 -2 -1 .0 00 L- ti PE 82 2- 7- 00 07 MA ve NT 63 20 20 43 RT IN 65 17 17 44 0 52 PH 60 AR 0 MA MG CY TA #5 BL 91 ET BI 00 02 30 30 NJ Ac SO 37 -2 -1 .0 00 L- ti IL 80 4- 7- 00 07 MA ve OL 50 20 20 46 RT OL 30 17 17 65 -H [address] AR Z MA 5- CY 6. 25 #5 91 MG TA B CE 00 02 30 30 00 NJ Ac LE 59 -1 -1 .0 00 L- ti CO 13 6- 0- 00 07 MA ve XI 98 20 20 45 RT B 40 17 17 54 20 1 92 PH 0 AR MG MA CY CA PS #5 UL 91 E LE 00 02 30 30 00 NJ Ac VO 78 -1 -1 .0 00 L- ti TH 15 4- 0- 00 07 MA ve YR 18 20 20 45 RT OX 49 17 17 01 IN 2 59 PH E AR 10 MA 0 CY MC G #5 TA 91 BL ET DU 57 01 02 30 30 00 NJ Ac LO 23 -1 -1 .0 00 L- ti XE 70 4- 0- 00 07 MA ve TI 01 20 20 44 RT NE 83 17 17 27 0 64 PH HC AR L MA DR CY 30 #5 91 MG CA P 64 01 01 8. 28 00 NJ Ac T 38 -0 -2 00 00 [...] End Date Code Location Performer [facility] - 6 6 [facility] 6 6 [facility] - 6 6 [facility] 5 5 [facility] - 5 5 [facility] - 5 5 [facility] - 5 5 [facility] - 5 5 [facility] - 5 5 [facility] - 4 4 [facility]
--- OUTSIDE RECORDS SUMMARY | 2017-10-22 18:57 | External Medical Summary Rpt | CCD ---
Author Author , TRACEY WEBB Address Unknown Phone [email or web address] Care Team Providers Care Oracle Architect Name Role Phone KRYSTINA JUSTICE MD, PSC, Unavailable Unavailable KRYSTINA JUSTICE MD, PSC [facility] Unavailable Unavailable PRACTICE L, [facility] Un[facility] Unavailable SERVICE, [facility] & Unavailable Unavailable D[facility]ILIER, [facility] Unavailable Unavailable [facility], [facility] NATALIYA SEKOU, NATALIYA SEKOU Unavailable Unavailable NÚÑEZ, NÚÑEZ Unavailable Unavailable [facility] Unavailable Unavailable INC, [facility] Unavailable Unavailable HOSPITAL, [facility] Unavailable Unavailable HOSPITAL P, [facility], Unavailable Unavailable [facility] Un[facility], [facility], [facility] [place] Unavailable Unavailable INTERNAL MED, [facility] Unavailable [facility]available [facility], Unavailable Unavailable PLL, [facility], [facility] Purpose Continuity of Care Document - 06-23-2014 through 2016 Problems Code Diagnosis DOS Provider Status J0100 ACUTE 08-15-2017 [facility] [place] SINUSITIS INTERNAL UNSPECIFIED MED M797 FIBROMYALGI 08-01-2017 [facility] [place] INTERNAL MED Z23 ENCOUNTER 08-01-2017 [facility] FOR [facility] IMMUNIZATIO INTERNAL N MED D259 LEIOMYOMA 07-22-2017 [facility] OF UTERUS PHYSICIANS UNSPECIFIED GROUP N8301 FOLLICULAR 07-22-2017 [facility] CYST OF YANG & RIGHT OVARY DUBILIER N8302 FOLLICULAR 07-22-2017 [facility] CYST OF YANG & LEFT OVARY DUBILIER N8311 CORPUS 07-22-2017 [facility] LUTEUM CYST YANG & OF RIGHT DUBILIER OVARY N838 OTH 07-22-2017 [facility] NONINFLAMM YANG & D/O OVARY DUBILIER FALLOP TUBE & BROAD LIG R102 PELVIC AND 07-22-2017 [facility] PERINEAL PHYSICIANS PAIN GROUP I10 ESSENTIAL 07-17-2017 [facility]YPERT[facility]O [facility] N W07579 ENCOUNTER 07-17-2017 [facility] P AL CARIOVASCUL AR EXAM C54422 ENCOUNTER 07-17-2017 [facility] P AL RESPIRATORY EXAM R48858 ENCOUNTER 07-17-2017 [facility] FOR OTHER MEDICAL PREPROCEDUR IMAGING ASS AL EXAMINATION M461 SACROILIITI 05-20-2017 Alin KNOTT MD, PSC ELSEWHERE CLASSIFIED M7062 TROCHANTERI 05-20-2017 Jodie KNOTT BURSITIS , PSC LEFT HIP N939 ABNORMAL 03-18-2017 [facility] ANESTH OF VAGINAL [facility] BLEEDING UNSPECIFIED N950 POSTMENOPAU 03-18-2017 [facility] DONELL PHYSICIANS BLEEDING GROUP J54625 ENCOUNTER 03-14-2017 [facility] P AL LABORATORY EXAM J302 OTHER 02-18-2017 [facility] SEASONAL [facility] ALLERGIC INTERNAL RHINITIS MED L38635 UNSPECIFIED 02-18-2017 [facility] OVARIAN PHYSICIANS CYST RIGHT GROUP SIDE N938 OTHER SPEC 02-13-2017 [facility] ABNORMAL MEDICAL UTERINE & IMAGING ASS VAGINAL BLEEDING Z1231 ENCOUNTER 02-13-2017 [facility] SCREENING MEDICAL MAMMO MALIG IMAGING ASS NEOPLASM BREAST N951 MENOPAUSAL 02-04-2017 [facility] AND FEMALE PHYSICIANS CLIMACTERIC GROUP STATES N32398 ATYP SQ 02-04-2017 [facility] CELLS UNDET PHYSICIANS GROUP SIGNIFICANC E CYTOL SMER CERV R45988 ENCOUNTER 02-04-2017 [facility] BIN PILER EXAM PHYSICIANS GENERAL RTN GROUP W/ABNORMAL FIND Z1212 ENCOUNTER 02-04-2017 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 & SIGNS PHYSICIANS INVLV THE GROUP DIGESTV SYS & ABD Z1211 ENCOUNTER 12-03-2016 [facility] SCREENING PHYSICIANS MALIGNANT GROUP NEOPLASM OF COLON H6692 OTITIS 11-09-2016 [facility] MEDIA PHYSICIANS UNSPECIFIED GROUP LEFT EAR J029 ACUTE 11-09-2016 [facility] PHARYNGITIS PHYSICIANS GROUP UNSPECIFIED J320 CHRONIC 11-09-2016 [facility] MAXILLARY PHYSICIANS SINUSITIS GROUP D126 BENIGN 10-31-2016 [facility] NEOPLASM OF [facility] COLON UNSPECIFIED K635 POLYP OF 10-31-2016 [facility] COLON PHYSICIANS GROUP K644 RESIDUAL 10-31-2016 [facility] HEMORRHOIDA PHYSICIANS L SKIN TAGS GROUP K5900 CONSTIPATIO 08-27-2016 [facility] N PHYSICIANS UNSPECIFIED GROUP R1032 LEFT LOWER 08-27-2016 [facility] QUADRANT PHYSICIANS PAIN GROUP R109 UNSPECIFIED 08-24-2016 [facility] ABDOMINAL [facility] PAIN INTERNAL MED R739 HYPERGLYCEM 08-24-2016 [facility] IA [facility] UNSPECIFIED INTERNAL MED D90359 PRIMARY 08-23-2016 [facility] OSTEOARTHRI MEDICAL TIS RIGHT IMAGING ASS SHOULDER X72693 PAIN IN 08-23-2016 [facility] RIGHT MEDICAL SHOULDER IMAGING ASS T73059 PAIN IN 08-23-2016 [facility] LEFT MEDICAL SHOULDER IMAGING ASS E669 OBESITY [...] ARTHROPATHY 07-24-2016 [facility] UNSPECIFIED INTERNAL MED D12917 DISEASES 07-24-2016 [facility] DIGESTIVE [facility] SYSTEM COMP INTERNAL MED 2ND TRI 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 MEM [facility]OS[facility] D/O INC W/RADICULOP ATHY LUMB RGN M5126 OTH 06-24-2016 JOSE KNOTT MD, PSC RAL DISC DISPLACEMEN T LUMBAR RGN G8929 OTHER 06-05-2016 [facility] CHRONIC [facility] PAIN INTERNAL MED K529 NONINFECTIV 06-05-2016 [facility] E [facility] GASTROENTER INTERNAL ITIS & MED COLITIS UNS R19875 SPONDYLOSIS 05-21-2016 [facility] W/O MEDICAL MYELOPATH/R IMAGING ASS ADICULOPATH Y LUMB RGN M4806 SPINAL 05-21-2016 [facility] STENOSIS MEDICAL LUMBAR IMAGING ASS REGION M545 LOW BACK 05-21-2016 [facility] PAIN [facility]ICAL [facility] M549 DORSALGIA 05-17-2016 [facility] UNSPECIFIED [facility]BULANCE SERVICE L35736 MUSCLE 05-17-2016 [facility] OF MEM HOS[facility] BACK INC K85267 OTHER 05-17-2016 [facility] MUSCLE [facility], SP[facility] PLLC B9689 OT SPEC 05-02-2016 [facility] BACTERIAL [facility] AGNT CAUSE INTERNAL DZ MED CLASSIFIED ELSW N760 ACUTE 05-02-2016 [facility] VAG[facility] N898 OTHER 05-02-2016 [facility] SPECIFIED LLC NONINFLAMMA TORY DISORDERS VAGINA N921 EXCESS & 05-02-2016 [facility] FREQUENT [facility] MENSTRUATIO INTERNAL N MED W/IRREGULAR CYCLE N941 DYSPAREUNIA 05-02-2016 [facility] [place] INTERNAL MED Q16942 ENCOUNTER 05-02-2016 [facility] BIN PILER EXAM VALLEY GENERAL RTN INTERNAL W/O MED ABNORMAL FIND J020 STREPTOCOCC 03-31-2016 [facility] AL PHYSICIANS PHARYNGITIS GROUP M7061 TROCHANTERI 03-15-2016 Jodie KNOTT BURSITIS , PSC RIGHT HIP M791 MYALGIA 02-26-2016 KRYSTINA JUSTICE MD, PSC M4724 OTH 02-17-2016 NÚ[facility] SPONDYLOSIS W/RADICULOP ATHY THORACIC REGION Z23651 SPONDYLOSIS 02-17-2016 NÚÑEZ W/O MYELOPATH/R ADICULOPATH SAC [...] PRACTICE L J069 ACUTE UPPER 02-07-2016 [facility] [place] RESPIRATORY INTERNAL INFECTION MED UNSPECIFIED M2662 ARTHRALGIA 02-07-2016 [place] OF PHYSICIAN TEMPOROMAND PRACTICE L IBULAR JOINT R0683 SNORING 02-07-2016 [facility] PHYSICIAN PRACTICE L R28847 PAIN IN 01-19-2016 [facility] RIGHT HIP MEDICAL IM[facility]ING ASS L64883 PAIN IN 01-19-2016 [facility] LEFT HIP MEDICAL IM[facility]ING ASS 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 01-19-2016 [facility]E [facility] M5135 OTH 01-19-2016 [facility] 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 J0190 ACUTE 12-30-2015 [facility] SINUSITIS PHYSICIANS UNSPECIFIED GROUP R05 COUGH 12-30-2015 [facility] GROUP J83284 OTHER 10-24-2015 [facility] INFECTIVE [facility] OTITIS HOSPITAL EXTERNA UNSPECIFIED EAR Z5329 PROC & [place] 10-24-2015 [facility] NOT CARRIED [facility] OUT INC PATIENTS OT REASON G19872 ACUTE & 10-09-2015 [facility] SUBACUTE [facility] OTITS MEDIA RIGHT EAR 7265 ENTHESOPATH 08-16-2015 [facility] Y OF HIP PHYSICIANS REGION GROUP 47418 NAUSEA 06-29-2015 [facility] ALONE PHYSICIANS GROUP 7873 FLATULENCE 06-29-2015 [facility] ERUCTATION PHYSICIANS AND GAS GROUP PAIN 57596 ABDOMINAL 06-29-2015 [facility] PAIN, PHYSICIANS EPIGASTRIC GROUP 7871 HEARTBURN 06-13-2015 [facility] 2449 UNSPECIFIED 06-12-2015 [facility] HYPOTHYROID INTERNAL ISM MED 4019 UNSPECIFIED 06-12-2015 [facility] [place] HYPERTENSIO INTERNAL N MED 29170 ESOPHAGEAL 06-12-2015 [facility] REFLUX [facility] INTERNAL MED 7248 OTHER 06-12-2015 [facility] [place]MPTOMS [place] REFERABLE INTERNAL TO BACK MED 7336 TIETZES 05-25-2015 [facility] DISEASE PHYSICIANS, [facility] 04055 CHEST PAIN 05-25-2015 [facility] UNSPECIFIED MEDICAL IMAGING ASS 490 BRONCHITIS 05-08-2015 [facility] NOT [facility] SPECIFIED INTERNAL ACUTE OR MED CHRONIC 7862 COUGH 05-08-2015 [facility] INTERNAL MED 33096 SPASM OF 03-16-2015 [facility] MUSCLE AMBULANCE SERVICE 7804 DIZZINESS 03-16-2015 [place] [employer] [facility] 25620 SHORTNESS 03-16-2015 [facility] OF BREATH AMBULANCE SERVICE 77973 OTHER CHEST 03-16-2015 [facility] [place] INTERNAL MED 4139 OTHER AND 01-30-2015 [place] UNSPECIFIED [facility] P [place] 19778 PAIN IN 01-30-2015 [facility] JOINT, MEDICAL SHOULDER IMAGING ASS REGION 02128 PAIN IN 01-30-2015 [facility] JOINT MEDICAL PELVIC IMAGING ASS REGION AND THIGH 7231 CERVICALGIA 01-30-2015 [facility] 72463 CONTUSION 01-30-2015 [facility] P 58199 CONTUSION 01-30-2015 [facility] P 9592 INJURY 01-30-2015 [facility] OTHER&UNSPE MEDICAL CIFIED IMAGING ASS SHOULDER&UP PER ARM 3899 UNSPECIFIED 01-04-2015 [facility] HEARING PHYSICIAN LOSS PRACTICE L 67155 UNSPECIFIED 12-13-2014 [facility] TINNITUS PHYSICIAN PRACTICE L 4739 UNSPECIFIED 12-13-2014 [facility] SINUSITIS PHYSICIAN PRACTICE L 90755 UNSPECIFIED 12-13-2014 [facility] SLEEP PHYSICIAN APNEA PRACTICE L 60651 OTHER 12-13-2014 [facility] DYSPNEA AND PHYSICIAN PRACTICE L RESPIRATORY ABNORMALITI ES V7612 OTHER 12-06-2014 [facility] SCREENING MEDICAL MAMMOGRAM IMAGING ASS 3814 NONSUPPRATV 11-28-2014 [facility] OTITIS [facility] MEDIA NOT INTERNAL SPEC MED ACUT/CHRON 71632 ACUTE 11-07-2014 [facility] SEROUS [facility] OTITIS INTERNAL MEDIA MED 50861 UNSPECIFIED 08-30-2014 [facility] VIRAL [facility] INFECTION INTERNAL IN CCE & MED UNS SITE 93037 UNSPECIFIED 08-12-2014 [facility] ARTHROPATHY INTERNAL MULTIPLE MED SITES 7291 UNSPECIFIED 08-12-2014 [facility] MYALGIA [facility] AND INTERNAL MYOSITIS MED 34035 OTHER 08-12-2014 [facility] MALAISE AND [facility] FATIGUE INTERNAL MED 13292 MEMORY LOSS 08-12-2014 [facility] INTERNAL MED 460 ACUTE 08-01-2014 [facility] NASOPHARYNG [facility]LEY ITIS INTERNAL MED 00032 CYSTS OF 07-29-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 4720 [...] 30 -0 -0 .0 00 TE ti NC 00 8- 3- 00 01 ve OL [...] AM 00 09 10 20 10 00 DC Ac OX 78 -2 -2 .0 00 L- ti -C 11 2- 0- 00 07 MA ve LA 85 20 20 51 RT V 22 17 17 14 87 0 16 PH 5- AR 12 MA 5 CY MG #5 TA 91 BL ET AC 00 09 10 28 7 00 DC Ac YC 09 -1 -1 .0 00 [...] 1 04 PH CE AR TA MA AR CY NO PH #5 EN 91 5- 32 5 DU 57 09 10 30 30 00 DC Ac LO 23 -1 -1 .0 00 L- ti XE 70 7- 3- 00 07 MA ve TI 01 20 20 50 RT NE 93 17 17 60 0 38 PH HC AR L MA DR CY 60 #5 91 MG CA P AL 00 09 10 1. 1 00 DC Ac NC 22 -1 -0 00 00 L- ti AZ 82 3- 6- 0 04 MA ve OL 03 20 20 53 RT AM 15 17 17 21 1 0 00 PH AR MG MA CY TA BL #5 ET 91 BI 29 09 10 30 30 00 [facility] SO 30 -0 -0 .0 00 TE ti NC 00 9- 6- 00 01 ve OL [...] 17 CE 1 49 PH TA AR AR MA NO CY PH EN #5 91 [...] OM 60 07 08 30 30 00 DC Ac EP 50 -3 -2 .0 00 L- ti RA 50 1- 5- 00 07 MA ve ZO 14 20 20 50 RT LE 60 17 [address] AR MA 40 CY MG #5 91 CA PS UL E 64 07 08 8. 28 00 DC Ac T 38 -3 -2 00 00 L- ti D2 00 1- 5- 0 07 MA ve 73 20 20 43 RT 1. 70 17 17 94 25 6 37 PH AR MG MA CY (5 0, #5 00 91 0 UN IT ) CE 00 07 08 30 30 00 DC Ac LE 59 -3 -2 .0 00 [...] BI 29 08 08 30 30 00 DC Ac SO 30 -0 -2 .0 00 L- ti NC 00 2- 5- 00 07 MA ve [...] 37 -2 -2 .0 00 L- ti NC 80 8- 1- 00 07 MA ve OL 50 20 20 48 RT OL 30 17 17 30 -H [address] AR Z MA 5- CY 6. 25 #5 91 MG TA B CE 00 DC Ac LE 59 -2 -2 .0 00 L- ti CO 13 8- - 00 07 MA ve XI 98 20 20 48 RT B 40 17 17 13 20 1 41 PH 0 AR MG MA CY CA PS #5 UL 91 E DU 57 DC Ac LO 23 -2 -2 .0 00 L- ti XE 70 8- 1- 00 07 MA ve TI 01 20 20 48 RT NE 83 17 17 51 0 44 PH HC AR L MA DR CY 30 #5 91 MG CA P IB 68 06 30 00 DC Ac UP 64 -2 -2 .0 00 [...] CE 16 04 30 30 30 00 DC Ac TI 57 -2 -2 .0 00 [...] LE 00 06 06 30 30 00 DC Ac VO 78 -0 -3 .0 00 L- ti TH 15 5- 0- 00 07 MA ve YR 18 20 20 49 RT OX 49 17 17 16 IN 2 21 PH E AR 10 MA 0 CY MC G #5 TA 91 BL ET DU 57 06 30 30 00 DC Ac LO 23 -0 -3 .0 00 L- ti XE 70 4- 0- 00 07 MA ve TI 01 20 20 48 RT NE 83 17 17 51 0 44 PH HC AR L MA DR CY 30 #5 91 MG CA P CE 00 06 06 30 30 00 DC Ac LE 59 [...] 37 -2 -2 .0 00 L- ti NC 80 9- 3- 00 07 MA ve OL 50 20 20 48 RT OL 30 17 17 30 -H [address] AR Z MA 5- CY 6. 25 #5 91 MG TA B CE 16 05 06 30 30 00 DC Ac TI 57 -2 -2 .0 00 [...] 49 RT ZA 89 17 17 07 NC 0 50 PH IN AR E MA [...] CE 00 04 05 30 30 00 DC Ac LE 59 -1 -1 .0 00 L- ti CO 13 7- 2- 00 07 MA ve XI 98 20 20 48 RT B 40 17 17 13 20 1 41 PH 0 AR MG MA CY CA PS #5 UL 91 E BI 00 04 05 30 30 00 DC Ac SO 37 -1 -1 .0 00 L- ti NC 80 8- 2- 00 07 MA ve OL 50 20 20 48 RT OL 30 17 17 30 -H [address] AR Z MA 5- CY 6. 25 #5 91 MG TA B CE 16 04 05 30 30 00 DC Ac TI 57 -1 -1 .0 00 [...] LE 00 03 04 30 30 00 DC Ac VO 78 -2 -2 .0 00 L- ti TH 15 5- 1- 00 07 MA ve YR 18 20 20 47 RT OX 49 17 17 25 IN 2 39 PH E AR 10 MA 0 CY MC G #5 TA 91 BL ET 64 03 04 8. 28 00 DC Ac T 38 [...] GA 00 02 03 90 30 00 DC Ac BA 22 -2 -2 .0 00 L- ti PE 82 3- 4- 00 07 MA ve NT 63 20 20 47 RT IN 65 17 17 25 0 38 PH 60 AR 0 MA MG CY TA #5 BL 91 ET LE 00 02 03 30 30 00 DC Ac VO 78 -2 -2 .0 00 L- ti TH 15 3- 4- 00 07 MA ve YR 18 20 20 47 RT OX 49 17 17 25 IN 2 39 PH E AR 10 MA 0 CY MC G #5 TA 91 BL ET BI 00 02 03 30 30 00 DC Ac SO 37 -2 -2 .0 00 L- ti NC 80 3- 4- 00 07 MA ve OL 50 20 20 46 RT OL 30 17 17 65 -H [address] AR Z MA 5- CY 6. 25 #5 91 MG TA B CE 00 02 03 30 30 00 DC Ac LE 59 -2 -2 .0 00 L- ti CO 13 3- 4- 00 07 MA ve XI 98 20 20 45 RT B 40 17 17 54 20 1 92 PH 0 AR MG MA CY CA PS #5 UL 91 E DU 57 02 03 30 30 00 DC Ac LO 23 -0 -0 .0 00 L- ti XE 70 7- 3- 00 07 MA ve TI 01 20 20 44 RT NE 83 17 17 27 0 64 PH HC AR L MA DR CY 30 #5 91 MG CA P OM 60 01 02 30 30 00 DC Ac EP 50 -3 -2 .0 00 [...] GA 00 01 02 90 30 00 DC Ac BA 22 -2 -1 .0 00 L- ti PE 82 2- 7- 00 07 MA ve NT 63 20 20 43 RT IN 65 17 17 44 0 52 PH 60 AR 0 MA MG CY TA #5 BL 91 ET BI 00 02 30 30 DC Ac SO 37 -2 -1 .0 00 L- ti NC 80 4- 7- 00 07 MA ve OL 50 20 20 46 RT OL 30 17 17 65 -H [address] AR Z MA 5- CY 6. 25 #5 91 MG TA B CE 00 02 30 30 00 DC Ac LE 59 -1 -1 .0 00 L- ti CO 13 6- 0- 00 07 MA ve XI 98 20 20 45 RT B 40 17 17 54 20 1 92 PH 0 AR MG MA CY CA PS #5 UL 91 E LE 00 02 30 30 00 DC Ac VO 78 [...] End Date Code Location Performer Type Date [facility] - 6 6 [facility] - 6 6 [facility] - 6 6 [facility] - 5 5 [facility] - 5 5 [facility] - 5 5 [facility] - 5 5 [facility] - 5 5 [facility] - 5 5 [facility] - 4 4 [facility]
--- OUTSIDE RECORDS SUMMARY | 2017-10-22 18:58 | External Medical Summary Rpt ---
[...] Date ti ce etation Range COMMENTS TO AUDIOVISUAL TECH: UA FROM [place] Collected [...] Date tion ce etation Range COMMENTS TO AUDIOVISUAL TECH: UA FROM [place] Collected [...]
--- OUTSIDE RECORDS SUMMARY | 2017-10-22 18:58 | External Medical Summary Rpt ---
[...] Date ti ce etation Range COMMENTS TO ENGINEERING OPERATOR: UA FROM [place] [facility] Collected [...] Date tion ce etation Range COMMENTS TO ENGINEERING OPERATOR: UA FROM [place] Collected [...]
--- OUTSIDE RECORDS SUMMARY | 2017-10-22 18:58 | External Medical Summary Rpt | CCD ---
Author Author , MILEY WEBB Address Unknown Phone Immunization Name Date Rout CVX Reac Dose Comm Prov Is Faci e tion ent ider Refu lity Give sed n Infl 09-0 Intr 0.5 Hist PD20 No PD20 uenz 8-20 amus mL oric 255 255 a 17 cula al Quad r Info rmat W/Pr ion es - Sour ce Unsp ecif ied
--- OUTSIDE RECORDS SUMMARY | 2017-10-22 18:58 | External Medical Summary Rpt | CCD ---
Author Author , MILEY WEBB Address Unknown Phone [email or web address] Immunization Name Date Rout CVX Reac Dose Comm Prov Is Faci e tion ent ider Refu lity Give sed n Infl 09-0 Intr 0.5 Hist PD20 No PD20 uenz 8-20 amus mL oric 255 255 a 17 cula al Quad r Info rmat W/Pr ion es - Sour ce Unsp ecif ied
[2017-10-22] MEDS ORDERED: PERCOCET1 TAB PO (19:04)
[2017-10-22 19:08] VITALS: BP 132/91
--- NOTE | 2017-10-22 21:17 | RADIOLOGY REPORT PS360 ---
[id number] VIEWS HISTORY: Left-sided chest pain, left rib pain pain ORDERING PHYSICIAN: Robert Schwarz MD PATIENT AGE: 52 years COMPARISON: None FINDINGS: A frontal view of the chest shows no acute finding. Multiple views of the Left ribs were obtained. No fracture or dislocation. No lytic or blastic change. IMPRESSION: Negative RIBS. If pain persists, consider follow-up exam in 7-[address] with 3-D reformats.
--- NOTE | 2017-10-22 21:18 | RADIOLOGY REPORT PS360 ---
THORACIC SPINE AP LAT-2VIEW CLINICAL INDICATION: Back pain pain ORDERING PHYSICIAN: Robert Schwarz MD PATIENT AGE: 52 years COMPARISON: None FINDINGS: No fracture or dislocation evident. Altered level degenerative disc disease is present with decrease in the disc space, endplate osteosclerosis, and end plate osteophytes anteriorly. There is mild kyphosis of the thoracic spine with slight decrease in height anteriorly of T7 not significant change from prior lateral chest radiograph of 07/17/2017. IMPRESSION: Thoracic spondylosis with degenerative disc disease and osteophytosis
== END 2017-10-22 19:09 | disposition home or self-care (01) ==
LOC: ER 17:24
DX: R07.81 Pleurodynia (principal); M54.6 Pain in thoracic spine; Z79.899 Other long term (current) drug therapy